=== PATIENT | female | born 1950 | race Caucasian/White ===

== ENCOUNTER → 2018-07-31 10:25 | Outpatient (CLI) | payer MEDICARE, SELFPAY ==
[2018-07-24 13:20] VITALS: BMI 37.9
--- NOTE | 2018-07-31 | IMM_PTH ---
PATIENT: CHELLE CAN LOC: [facility] U#:[id number] AGE/SX: 74/F ROOM: RE07/31/[address]: Dr. Anish Dave MD : 1950 BED: DIS: SPEC #: [id number] RECD: 08/01/18 13:35 STATUS: JAMIE REQ #: [id number] MANNY: 07/31/18 00:[address]: Anish Dave DEPT: IMMUNOHISTOCHEMISTRY RECD BY: Mica Prakash ENTERED: 08/01/18 13:36 SP TYPE: IMMUNO OTHR DR: Dr. Cruzito Lemos MD Tissues: Left breast, NOS Procedures: CALPONIN-1 (add) CK5-6 (add) CK8 (add) E-CAD (add) HER2 YOLA (add) KI-67 (add) P53 (add) NJ (add) P40 (add) ER (initial) PHYSICIAN & INSTITUTION [place] [id number] SPECIMEN INFORMATION: Tissue Source: Left breast Clinical Info: Left breast calcifications Specimen Number: [id number] #1 & 2 CPT code: 39086, 98265 x8, 86370 x3 METHODOLOGY: Deparaffinized sections of prefer/formalin-fixed tissue or PAP/DQ stained slides are incubated with monoclonal/polyclonal antibodies/oligonucleotide probes. Localization is made via biotin free immunoperoxidase method. Appropriate controls are performed and reacted as expected. Results on target cell population are indicated in the following table: RESULTS: ANTIBODY / CLONE RESULT Block 1 P53 (DO-7) negative Ki-67 (30-9) positive, low CK8 (99azitZ42) positive CK5-6 (D5 & 1684) negative Calponin-1 (YK485Q) negative P40 (BC28) negative E-Cad (ECH-6) positive MORPHOMETRIC ANALYSIS ER (clone 6F11) >95% NJ (clone 16/1E2) 56% Her-2Neu (clone CB11) 0-1+ Block 2 P40 (BC28) negative Calponin-1 (KH247C) negative The prognostic test for HER2 is performed on formalin-fixed paraffin embedded tissue. A 3+ (positive) staining pattern is defined as intense, homogeneous, complete, circumferential membranous staining in >10% of contiguous tumor cells. A similar weak (2+) staining pattern is interpreted as equivocal. MAHESH follow-up testing is recommended for all equivocal cases. Positivity/negativity for ER/NJ is reported if > or < 1% of the tumor cells are immuno- reactive, respectively. The ASCO/CAP criteria is used for scoring. Reference: Journal of Clinical Oncology, 2013; 31:0234-9939 & 2010; 16:2053-2757. Duration of fixation: 8 Hrs; Sample Adequate: Yes. These assays have not been validated on decalcified tissues. Results should be interpreted with caution given the likelihood of false negativity on decalcified specimens. These tests were developed and their performance characteristics determined by [facility]. They may not have been cleared or approved by the U.S. Food and Drug Administration. The FDA has determined that such clearance or approval is not necessary. INTERPRETATION: Left breast, stereotactic needle core biopsy: Invasive ductal carcinoma, nuclear grade 2. Positive for estrogen receptors (favorable prognostic indicator). Positive for progesterone receptors (favorable prognostic indicator). Negative for overexpression of RSN5tpt. AM:nehal 08/02/18
--- NOTE | 2018-07-31 11:15 | BRBX_PTH ---
PATIENT: CHELLE CAN LOC: [facility] U#:[id number] AGE/SX: 74/F ROOM: RE07/31/[address]: Dr. Anish Dave MD : 1950 BED: DIS: SPEC #: [id number] RECD: 07/31/18 12:01 STATUS: JAMIE ARIE #: [id number] MANNY: 07/31/18 11:[address]: Anish Dave DEPT: SURGICAL PATHOLOGY RECD BY: Isaiah Anderson ENTERED: 07/31/18 13:04 SP TYPE: BREAST BX OTHR DR: Dr. Cruzito Lemos MD Tissues: Left breast, NOS Procedures: Surgery Specimen Level IV HEADER OPERATION: Left breast stereotactic needle core biopsy PRE-OP DIAGNOSIS: Left breast calcifications TISSUE SUBMITTED: Left breast ISCHEMIC TIME: 2 minutes FIXATION TIME: 8 hours MICROSCOPIC DIAGNOSIS Left breast, stereotactic core biopsy: Invasive ductal carcinoma with the follow characteristics: Nuclear grade - 2 Maximal length - 5 mm Other findings - ductal carcinoma in situ with associated microcalcifications. AM:nehal 08/01/18 COMMENT ER/MI/Mxv8zzk studies are being performed on sections of tumor and the results from this study will be reported separately ([id number]). Case has been reviewed in consultation with Dr. Alfonso who concurs with the above diagnosis. IDC:SJ MICROSCOPIC DESCRIPTION Slides are reviewed. GROSS DESCRIPTION Received is one container labeled with the patient's name and not further designated. The specimen consists of multiple irregular and elongated fragments of yellow-rosario soft tissue that in aggregate measure 7 x 5 x 0.2 cm. The specimen is totally submitted in three cassettes. / AM:nehal 07/31/18 TC:0 CPT: 48919
--- NOTE | 2018-07-31 15:00 | PCM.OPRPT ---
Problem List (1) Microcalcification of left breast on mammogram Status: Acute Report of Operation Date of Procedure: 07/31/18 Pre-Operative Diagnosis: Microcalcifications of left breast Post-Operative Diagnosis: Same Surgery/Procedure Performed:: Stereotactic breast biopsy left breast Type of Anesthesia:: Local Description of Procedure: Patient was brought into the mammography unit. Placed in the prone position on the Kendall table. A medial to lateral view of the left breast was obtained. I targeted on the microcalcifications. I prepped the breast with Betadine. I injected 1% lidocaine plain. A skin patrick was made. I placed the needle in the prefire position and took 2 more stereotactic views. Microcalcifications were targeted appropriately. I fired the needle and took 360 degrees circumferential biopsies. I x-ray my specimen. Microcalcifications were seen in almost every biopsy. I backed the needle off 7 mm. I placed a standard Gelfoam titanium clip into the biopsy cavity. I removed the needle. I obtained a photograph showing the clip to be in good placement. Steri-Strips are applied sterile dressings were applied standard mammograms were obtained and the patient tolerated the procedure well. - Admit VTE Documentation VTE Present on Admission: No VTE Mechan Device Prophylaxis: None VTE Pharm Prophylaxis ordered?: No Reason prophylaxis not ordered:: Treatment Not Indicated
--- OUTSIDE RECORDS SUMMARY | 2018-11-01 23:32 | XMS RPT_ITS ---
:1950 Author Organization [facility] Support Name Relationship Address Phone PAMELLAFRANCES Unavailable [address] + [address] [place] [address] R Unavailable Unavailable Unavailable FRANCES CAN Unavailable [address] + [address] [place] [address] R Unavailable Unavailable Unavailable FRANCES CAN Unavailable [address] + [address] [place] [address] R Unavailable Unavailable Unavailable FRANCES CAN Unavailable [address] + [address] [place] [address] R Unavailable Unavailable Unavailable FRANCES CAN Unavailable [address] + [place] [address] FRANCES CAN Unavailable [address] + [place] [address] FRANCES CAN Unavailable [address] + [address] [place] [address] R Unavailable Unavailable Unavailable FRANCES CAN Unavailable [address] + [address] [place] [address] R Unavailable Unavailable Unavailable FRANCES CAN Unavailable [address] + [address] [place] [address] R Unavailable Unavailable Unavailable R Unavailable Unavailable Unavailable FRANCES CAN Unavailable [address] + [place] [address] FRANCES CAN Unavailable [address] + [place] [address] FRANCES CAN Unavailable [address] + [place] [address] FRANCES CAN Unavailable [address] + [place] [address] FRANCES CAN Unavailable [address] + [place] [address] FRANCES CAN Unavailable [address] + [place] [address] FRANCES CAN Unavailable [address] + [place] [address] FRANCES CAN Unavailable [address] + [place] [address] Care Team Providers Name Role Phone SHUKRI MAY, DR. DHIRAJ Rajput Attending Unavailable SHUKRI MAY, DR. DHIRAJ Rajput Primary Care Unavailable SHUKRI MAY, DR. DHIRAJ Rajput Attending Unavailable SHUKRI MAY, DR. DHIRAJ Rajput Primary Care Unavailable NOVA MCDERMOTT, DR. GALLEGOS Attending Unavailable SHUKRI MAY, DR. DHIRAJ Rajput Primary Care Unavailable SHUKRI MAY, DR. DHIRAJ Rajput Attending Unavailable SHUKRI AMY, DR. DHIRAJ Rajput Primary Care Unavailable SHUKRI MAY, DR. DHIRAJ Rajput Attending Unavailable SHUKRI MAY, DR. DHIRAJ Rajput Primary Care Unavailable Patagonia, Anish Attending Unavailable NAUMOFF, DHIRAJ Primary Care Unavailable [place]agonia, Anish Attending Unavailable NAUMOFF, DHIRAJ Primary Care Unavailable JolieAnish Consulting Unavailable Jolie, Anish Attending Unavailable [place]agonia, Anish Referring Unavailable NAUMOFF, DHIRAJ Primary Care Unavailable Jolie, Anish Attending Unavailable NAUMOFF, DHIRAJ Referring Unavailable Jolie, Anish Attending Unavailable NAUMOFF, DHIRAJ Referring Unavailable [place]agonia, Anish Attending Unavailable NAUMOFF, DHIRAJ Referring Unavailable Jolie, Anish Attending Unavailable [place]agon[place], Anish Referring Unavailable NAUMOFF, DHIRAJ Primary Care Unavailable DeHortPerico berg Consulting Unavailable PROBLEMS PROBLEMS DATE TYPE CONDITION / CODE ATTENDING STATUS SOURCE 08/04/2018 Admitting Encounter for SHUKRI MAY, Active [facility] Diagnosis screening for DR. DHIRAJ Pandya malignant neoplasm Repository of cervix / Z12.4(ICD-10) 07/31/2018 Unknown R92.8 - Other Anish Dave Active [employer] abnormal and Community inconclusive Hospital findings on Repository diagnostic imaging of breast / R92.8(ICD-10) 07/11/2018 Admitting Urinary tract NOVA MCDERMOTT, Active [facility] Diagnosis infection, site ROSY Pandya not specified / Repository N39.0(ICD-10) PROCEDURES PROCEDURES No Procedure Records FoundRESULTS RESULTS CBC-COMPLETE BLOOD CNT Collected: 09/06/2018 Status: F Source: [place] NO DIFF 9:55 AM [facility] [place] TYPE CODE TESTS RESULT OUT OF RANGE REFERENCE UNITS LAB L100.1000 4.4-11.0 K/mm3 Normal WBC 6.2 LAB L100.1200 4.2-5.4 M/mm3 Normal RBC 4.29 LAB L100.1300 12.0-15.0 g/dl Normal HGB 13.0 LAB L100.1400 37-47 % Normal HCT 41.9 LAB L100.1500 81-99 fL Normal MCV 97.7 LAB L100.1600 27.0-32.0 pg Normal MCH 30.3 LAB L100.1700 32-36 g/gl Low MCHC 31.0 LAB L100.1810 11.6-14.6 % Normal RDW CV 13.2 LAB L100.1820 35.1-43.9 fl High RDW SD 47.1 LAB L100.1900 150-450 K/mm3 Normal PLT 264 LAB L100.2000 6.2-12.0 fl Normal MPV 11.1 Performed By: #### L100.0500 #### [facility] [address] [place], [place], [address] SURGERY VISIT REPORT Observed: 08/24/2018 Status: F Source: [place] 4:55 PM [facility] [place] [facility] [address] [place], [place] [address] OFFICE VISIT Date of Service: 08/24/18 MR#: [id number] Acct: [id number] Name: CHELLE CAN Rep #: [id number] : 1950 Provider: Anish Dave MD Age/Sex: 68/F Location: [facility] Status: Signed Intake Vital Signs08/24/18 Body Mass Index (BMI) 37.9 Intake Visit Reasons: F/U MRI Results Chief Complaint: MRI breast results Restorative Care Technician Required: No Is patient in pain?: No Allergies davoro Allergy (Intermediate, Uncoded 07/24/18 13:22) dizziness Medications NK 07/24/18 [History Confirmed 08/09/18] Is last menstrual period known: No Post menopausal: Yes Patient : No PFSH Medical History Abnormal mammogram of both breasts (Acute) Breast cancer (Acute 08/2018) GERD (gastroesophageal reflux disease) (Acute) Surgical History History of right breast biopsy (Acute) Family History Mother Breast cancer Father Colon cancer Social History Smoking Status: Former smoker alcohol intake: never substance use type: does not use HPI HPI HPI: CHELLE CAN, is a 68 F who presents to the office today for follow-up from an MRI study of her breast which was completed at [facility] on 08/16/2017. This showed a seroma cavity in the lower outer quadrant of the left breast measuring approximately 18 mm x 11 mm. There was also an extensive area of linear clumping enhancement in the lower outer quadrant of the left breast measuring 6 cm x 10.7 cm x 6.1 cm this area occupied nearly the entire lower quadrant of the left breast . Patient underwent a left stereotactic breast biopsy on 07/31/2018. 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 Her ER receptors were positive at greater than 95 her UT receptors were 56 her HER-2/judah was 0-1+. Patient has noticed virtually no bruising but a small lump in the biopsy cavity. Presents today to discuss surgical options and follow-up Exam Const General: well developed, no acute distress, well hydrated Orientation: oriented to person, oriented to place, oriented to time [facility] Head: normocephalic, atraumatic Ears: external ears normal Mouth: moist mucous membranes Eyes Sclera: sclerae normal Pupils: normal by confrontation Neck Neck: no lymphadenopathy noted Neck mass: No Thyroid: symmetrical, thyroid normal Chest Chest palpation AND inspection: normal inspection of the chest Breast inspection: normal inspection of the breasts Breast Palpation: No change in skin, Yes normal palpation of the breasts, Yes normal palpation of the axillae Other: Palpation of the right breast reveals nml. Palpation of the left breast reveals nml slightly more dense in the lower outer quadrant. Axillary exam demonstrates no suspicious masses in either the left or right axilla. Resp Effort AND Inspection: normal respiratory effort Auscultation: clear to auscultation bilaterally Percussion: percussion normal Cardio Rate: regular rate Rhythm: regular rhythm GI Palpation: soft, nontender, no masses, no hepatosplenomegaly Rectal Exam: other Other: Rectal exam deferred. Extrem General: no clubbing, cyanosis or edema, normal to inspection Assessment AND Plan Problems 1. 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 Options are the following: lumpectomy followed by radiation therapy vs. mastectomy vs. mastectomy followed by immediate reconstruction. I have described the procedures to the patient. I have described the advantages and disadvantages of the options, but I have told the patient that among the options, the survival rate for breast cancer is the same. I have told the patient that with all the surgeries that a sentinel lymph node biopsy is required. I have described the procedure of sentinel lymph node biopsy to the patient. I have told the patient that if the biopsy is positive for metastatic disease, then a full axillary lymph node dissection is required. I have told the patient that adjuvant chemotherapy will be required should the lymph nodes reveal metastatic disease. Also, a full lymph node dissection will increase the risk for lymphedema, especially if there are 4 or more lymph nodes positive for metastatic disease and radiation to the axilla is also required. I have told the patient the risks of surgery, including but not limited to: infection, bleeding, scar tissue, seroma and persistent seroma, lymph leak, injury to any blood vessels, injury to any nerves (particularly the long thoracic, the thoracodorsal, and the second intercostal brachial and the resultant sequelae), lymphedema, cosmetic deformity, dysesthesias, wound infections, further surgery (especially if margins are not clear), complications of anesthesia, etc. the patient understands. The patient will think about the options and discuss it further with the family. The patient will contact me in the next few days when she decides what the patient wishes to do. I have answered all the patient s questions at this point to her satisfaction and she has no further questions. Patient has opted to undergo a left-sided mastectomy with sentinel lymph node biopsy. Given the fact that her MRI shows that there is no obvious lymph node involvement I believe that this is a safe approach as opposed to doing MRI guided biopsies of numerous areas within the left breast. I think we will be able to get the skin closure without any difficulty whatsoever and make an accurate sentinel lymph node biopsy and diagnosis. I did discuss with her the possibility of biopsying this and obtaining chemotherapy ahead of time to possibly have breast conserving therapy she does not wish to do this. 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, estrogen receptor positive C50.512; Z17.0 Breast location: lower outer quadrant of breast Estrogen receptor status: positive Patient sex: female 08/24/18 1655 <Electronically signed by Anish Dave MD> Date Anish Dave MD Cosigner Signature: Date (if applicable) CC: Dhiraj Lemos MD BREAST BILATERAL W/O Observed: 08/16/2018 Status: F Source: [place] AND W 12:58 PM [facility] [place] [facility] Imaging Services [address] [place] [id number] Breast Bilateral W/O and W MR#: [id number] Acct: [id number] Name: CHELLE CAN Scar Rep #: [id number] : 1950 F 67 From: Danial Cates MD PCP: Dhiraj Lemos MD Status: REG CLI Study: Breast Bilateral W/O and W Date of Exam: 08/16/18 Exam# [id number] Ordering Dr: Anish Dave MD STUDY: BILATERAL BREAST MR WITHOUT AND WITH CONTRAST REASON FOR EXAM: Female, 68 years old. Recent positive left breast biopsy for invasive duct carcinoma. Evaluation of both breasts preoperative blue. TECHNIQUE: Multi-sequence multi-echo imaging of both breasts was performed with a dedicated breast coil. T1-weighted and T2- weighted images were performed before the administration of contrast. T1- weighted images were also performed after the administration of 10 mL of Gadavist contrast intravenously without complications. COMPARISON: Prior breast MRI dated December 13, 2007 and mammograms dated July 10, 2010. FINDINGS: RIGHT BREAST: The breast tissue is fatty with no background enhancement. There are no abnormal enhancing masses or areas of non-mass enhancement in the right breast. LEFT BREAST: The breast tissue is fatty with no background enhancement. There is a seroma cavity in the lower outer quadrant of the left breast measuring approximately 18 mm x 11 mm. There is an extensive area of linear clumped enhancement in the lower outer quadrant of the left breast measuring 6.8 cm x 10.7 cm x 6.1 cm. This area occupies nearly the entire lower outer quadrant of the left breast. There are no enlarged or abnormal lymph nodes. There is no abnormality in the visualized regions of the chest or liver. MRI/Breast Bilateral W/O and W IMPRESSION: No abnormality in the right breast. Extensive area of linear clumped enhancement in the lower outer quadrant of the left breast as described. CATEGORY: [facility] Category 6: Known Biopsy-Proven Malignancy - Appropriate Action Should Be Taken. A letter regarding these results will be sent to the patient by the facility within 30 days. Electronically Signed: Danial Cates MD at 17:58 EST , Service support , CC: Dhiraj Lemos MD; Anish Dave MD Furniture Arranger: Signed SURGERY VISIT REPORT Observed: 08/09/2018 Status: F Source: [place] 9:23 AM [facility] [place] [facility] [address] [place] [address]. [address] [place] [address] OFFICE VISIT Date of Service: 08/09/18 MR#: [id number] Acct: [id number] Name: CHELLE CAN Rep #: [id number] : 1950 Provider: Anish Dave MD Age/Sex: 67/F [place] [facility] [place] Status: Signed Intake Vital Signs08/09/18 Body Mass Index (BMI) 37.9 Intake Visit Reasons: F/U R BRST BX 07/31/18 DP Restorative Care Technician Required: No Is patient in pain?: No Allergies davoro Allergy (Intermediate, Uncoded 07/24/18 13:22) dizziness Medications NK 07/24/18 [History Confirmed 08/09/18] PFSH Medical History Abnormal mammogram of both breasts (Acute) GERD (gastroesophageal reflux disease) (Acute) Surgical History History of right breast biopsy (Acute) Family History Mother Breast cancer Father Colon cancer Social History Smoking Status: Former smoker alcohol intake: never substance use type: does not use HPI HPI HPI: CHELLE CAN, is a 67 F who presents to the office today for postoperative care from a left stereotactic breast biopsy. Patient underwent a left stereotactic breast biopsy on 07/31/2018. 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 Her ER receptors were positive at greater than 95 her UT receptors were 56 her HER-2/judah was 0-1+. Patient has noticed virtually no bruising but a small lump in the biopsy cavity. ROS General General: No weight change, appetite, fatigue, colon cancer, breast cancer or weakness HEENT HEENT: No difficulty swallowing, eye injury, eye surgery, swollen glands or hoarseness Endo Endocrine: No thyroid disease, diabetes mellitus, thyroid cancer, Hair loss, heat intolerance or cold intolerance Skin Skin: No rash or changing moles Breast Breast: Yes abnormal mammogram and abnormal US; no left breast lump, right breast lump, nipple discharge, breast pain or breast enlargement Musc Musculoskeletal: No back problems, arthritis, rheumatoid arthritis, gout or joint pain Cardio Cardiovascular: No murmur, pacemaker, heart disease, atrial fibrillation, high blood pressure, heart attack, heart stent, palpitations, shortness of breat with exertion or chest pain Psych Psychiatric: Yes anxiety; no depression or hearing voices Resp Respiratory: No shortness of breath, No sleep apnea, No cough, No COPD, No asthma, No emphysema, No wheezing Gastro Gastrointestinal: No abdominal pain, No nausea or vomiting, No diarrhea, No constipation, No blood in stool, Yes acid reflux, No hemorrhoids, Yes ulcers, No gallbladder problem, No black,tarry stools Fabircio Hematologic: No blood thinners, No blood disorders, No bleeding, No anemia, No blood clots Neuro Neurologic: No weakness Exam Chest Breast Palpation: No nipple discharge Other: Biopsy site is clean there is a small hematoma located with in the area of the upper outer quadrant of the left breast. Cardio Heart Sounds: no murmurs Assessment AND Plan Problems 1. Malignant neoplasm of upper-outer quadrant of left breast in female, estrogen receptor positive C50.412; Z17.0 Plan At this point the patient is leaning towards a mastectomy. I believe that it is important for us to obtain an MRI of her breasts given the diffuseness of the microcalcifications not only with in the left breast but also within the right breast. We discussed at length what is involved with a left-sided mastectomy which would include using both nuclear dye as well as blue dye to use to identify the sentinel lymph node. I have given the patient options for initial surgical treatment. Options are the following: lumpectomy followed by radiation therapy vs. mastectomy vs. mastectomy followed by immediate reconstruction. I have described the procedures to the patient. I have described the advantages and disadvantages of the options, but I have told the patient that among the options, the survival rate for breast cancer is the same. I have told the patient that with all the surgeries that a sentinel lymph node biopsy is required. I have described the procedure of sentinel lymph node biopsy to the patient. I have told the patient that if the biopsy is positive for metastatic disease, then a full axillary lymph node dissection is required. I have told the patient that adjuvant chemotherapy will be required should the lymph nodes reveal metastatic disease. Also, a full lymph node dissection will increase the risk for lymphedema, especially if there are 4 or more lymph nodes positive for metastatic disease and radiation to the axilla is also required. I have told the patient the risks of surgery, including but not limited to: infection, bleeding, scar tissue, seroma and persistent seroma, lymph leak, injury to any blood vessels, injury to any nerves (particularly the long thoracic, the thoracodorsal, and the second intercostal brachial and the resultant sequelae), lymphedema, cosmetic deformity, dysesthesias, wound infections, further surgery (especially if margins are not clear), complications of anesthesia, etc. the patient understands. The patient will think about the options and discuss it further with the family. The patient will contact me in the next few days when she decides what the patient wishes to do. I have answered all the patient s questions at this point to her satisfaction and she has no further questions. Coding Level of Care Code Off vis,est,level 3 Diagnoses Malignant neoplasm of upper-outer quadrant of left breast in female, estrogen receptor positive C50.412; Z17.0 Breast location: upper outer quadrant of breast Estrogen receptor status: positive Patient sex: female Time Spent (min) 08/09/18 0923 <Electronically signed by Anish Dave MD> Date Anish Dave MD Cosigner Signature: Date (if applicable) CC: Dhiraj Lemos MD AD CLERK CYTOLOGY REPORT Observed: 08/04/2018 Status: F Source: [facility] 3:22 PM [facility] REPOSITORY . Pathology Reports Accession: Collected Date/Time: Received Date/Time: Pathologist: [id number] 08/04/2018 15:22 EST 08/04/2018 18:00 EST Interpreter Deaf Cytology Report SPECIMEN: Specimen Description: Liquid Prep w/ HPV Specimen: Cervical/Endocervical Screening or Diagnostic: Screening RELEVANT HISTORY: LMP: 1993 Post Menopausal: Yes [id number] SPECIMEN ADEQUACY: SATISFACTORY FOR EVALUATION ENDOCERVICAL/TRANSFORMATIONAL ZONE COMPONENT PRESENT INTERPRETATION/RESULTS: NEGATIVE FOR INTRAEPITHELIAL LESION OR MALIGNANCY. ATROPHIC CHANGE PRESENT. Electronically Signed by Pathology report verified by [facility] Screened by: ROB Electronically signed by Keerthi GAY (ASCP) Sign-Out Date: 08/11/2018 13:36 Performing Lab: [facility], [address] [place] [address] Disclaimer The Pap test is a screening test for cervical cancer. As evidenced by published data, it is subject to both inherent false negative and false positive results. Your patient's results should be interpreted in context with pertinent clinical history including gynecological examination. Performed By: #### GYCR #### [place] [address] HPV Collected: 08/04/2018 Status: F Source: [facility] 3:22 PM FOUNDATION REPOSITORY Order Comment: Order placed by AP_HPV_ORDER rule from [id number] TYPE CODE TESTS RESULT OUT OF REFERENCE UNITS RANGE LAB BFHPV(LOINC ) HPV Source Cervix LAB HPVINT(LOIN See Interp HPVN C) HPV Interp Result Comment: High Risk HPV Typing: NEGATIVE HPV types 16, 18, 31, 33, 35, 39, 45, 51, 52, 56, 58, 59, 66 and 68 DNA were undetectable or below the pre-set threshold. The collin High-Risk HPV DNA Test is not intended for use as a screening device for Pap normal women under age 30 and is not intended to substitute for regular Pap screening. The collin High-Risk HPV DNA Test is designed to augment existing methods for the detection of cervical disease and should be used in conjunction with clinical information derived from other diagnostic and screening tests, physical examinations and full medical history in accordance with appropriate patient management procedures. NOTE: A negative result does not preclude the presence of HPV infection because results depend on adequate specimen collection, absence of inhibitors and sufficient DNA to be detected. See Interp HPVN Performed By: #### HPV #### [place] [address] OPERATIVE REPORT Observed: 07/31/2018 Status: F Source: [place] 3:06 PM [facility] [place] [facility] Medical Records Department [address] [place] [address] Operative Report 07/31/18 1500 MR#: [id number] Acct: [id number] Name: CHELLE CAN Rep #: [id number] : 1950 67 From: Ansih Dave MD PCP: Dhiraj Lemos MD Status: REG CLI Y Location: [facility] Problem List (1) Microcalcification of left breast on mammogram Status: Acute Report of Operation Date of Procedure: 07/31/18 Pre-Operative Diagnosis: Microcalcifications of left breast Post-Operative Diagnosis: Same Surgery/Procedure Performed:: Stereotactic breast biopsy left breast Type of Anesthesia:: Local Description of Procedure: Patient was brought into the mammography unit. Placed in the prone position on the [place] table. A medial to lateral view of the left breast was obtained. I targeted on the microcalcifications. I prepped the breast with Betadine. I injected 1% lidocaine plain. A skin patrick was made. I placed the needle in the prefire position and took 2 more stereotactic views. Microcalcifications were targeted appropriately. I fired the needle and took 360 degrees circumferential biopsies. I x-ray my specimen. Microcalcifications were seen in almost every biopsy. I backed the needle off 7 mm. I placed a standard Gelfoam titanium clip into the biopsy cavity. I removed the needle. I obtained a photograph showing the clip to be in good placement. Steri-Strips are applied sterile dressings were applied standard mammograms were obtained and the patient tolerated the procedure well. - Admit VTE Documentation VTE Present on Admission: No VTE Mechan Device Prophylaxis: None VTE Pharm Prophylaxis ordered?: No Reason prophylaxis not ordered:: Treatment Not Indicated 07/31/18 1506 <Electronically signed by Anish Dave MD> Date Anish Dave MD CC: Dhiraj Lemos MD; Anish Dave MD Signed BREAST BIOPSY Observed: 07/31/2018 Status: F Source: [place] (CHOOSE SITE) 11:15 AM [facility] [place] Patient: CHELLE CAN : 1950 (67/F) Acct Num: [id number] Phys: Jolie CALLAWAY,Anish Unit Num: [id number] Loc: [facility] Specimen: [id number] Received: 07/31/18 - 1201 Spec Type: BREAST BX TISSUES 1 TISSUES: Left breast, NOS COMMENT ER/UT/[id number] studies are being performed on sections of tumor and the results from this study will be reported separately ([id number]). Case has been reviewed in consultation with Dr. Alfonso who concurs with the above diagnosis. IDC:SJ GROSS DESCRIPTION Received is one container labeled with the patient's name and not further designated. The specimen consists of multiple irregular and elongated fragments of yellow-rosario soft tissue that in aggregate measure 7 x 5 x 0.2 cm. The specimen is totally submitted in three cassettes. / AM:nehal 07/31/18 TC:0 CPT: 74659 HEADER OPERATION: Left breast stereotactic needle core biopsy PRE-OP DIAGNOSIS: Left breast calcifications TISSUE SUBMITTED: Left breast ISCHEMIC TIME: 2 minutes FIXATION TIME: 8 hours MICROSCOPIC DESCRIPTION Slides are reviewed. MICROSCOPIC DIAGNOSIS Left breast, stereotactic core biopsy: Invasive ductal carcinoma with the follow characteristics: Nuclear grade - 2 Maximal length - 5 mm Other findings - ductal carcinoma in situ with associated microcalcifications. AM:nehal 08/01/18 Signed Ashutosh Cornejo DO 08/02/18 <signature on file> Performed By: #### PBRBX #### [facility] [place], [address] IMMUNOHISTOCHEMISTRY Observed: 07/31/2018 Status: F Source: [place] 12:00 AM [facility] [place] Patient: CHELLE CAN : 1950 (67/F) Acct Num: [id number] Phys: Anish Dave MD Unit Num: [id number] Loc: B[facility]AD Specimen: [id number] Received: 08/01/181334 Spec Type: IMMUNO TISSUES 1 TISSUES: Left breast, NOS SPECIMEN INFORMATION: Tissue Source: Left breast Clinical Info: Left breast calcifications Specimen Number: [id number] #1 AND 2 CPT code: 90995, 14400 x8, 16600 x3 METHODOLOGY: Deparaffinized sections of prefer/formalin-fixed tissue or PAP/DQ stained slides are incubated with monoclonal/polyclonal antibodies/oligonucleotide probes. Localization is made via biotin free immunoperoxidase method. Appropriate controls are performed and reacted as expected. Results on target cell population are indicated in the following table: RESULTS: ANTIBODY / CLONE RESULT Block 1 P53 (DO-7) negative Ki-67 (30-9) positive, low CK8 (35vqkqC99) positive CK5-6 (D5 AND 1684) negative Calponin-1 (QP384Y) negative P40 (BC28) negative E-Cad (ECH-6) positive MORPHOMETRIC ANALYSIS ER (clone 6F11) >95% UT (clone 16/1E2) 56% Her-2Neu (clone CB11) 0-1+ Block 2 P40 (BC28) negative Calponin-1 (IB818T) negative The prognostic test for HER2 is performed on formalin-fixed paraffin embedded tissue. A 3+ (positive) staining pattern is defined as intense, homogeneous, complete, circumferential membranous staining in >10% of contiguous tumor cells. A similar weak (2+) staining pattern is interpreted as equivocal. MAHESH follow- up testing is recommended for all equivocal cases. Positivity/negativity for ER/ UT is reported if > or < 1% of the tumor cells are immuno- reactive, respectively. The ASCO/CAP criteria is used for scoring. Reference: Journal of Clinical Oncology, 2013; 31:9015-7628 AND 2010; 16:2784- 2795. Duration of fixation : 8 Hrs; Sample Adequate: Yes. These assays have not been validated on decalcified tissues. Results should be interpreted with caution given the likelihood of false negativity on decalcified specimens. These tests were developed and their performance characteristics determined by [facility]. They may not have been cleared or approved by the U.S. Food and Drug Administration. The FDA has determined that such clearance or approval is not necessary. INTERPRETATION: Left breast, stereotactic needle core biopsy: Invasive ductal carcinoma, nuclear grade 2. Positive for estrogen receptors (favorable prognostic indicator). Positive for progesterone receptors (favorable prognostic indicator). Negative for overexpression of ZDH9zsd. AM:nehal 08/02/18 PHYSICIAN AND INSTITUTION [address] [address] Signed Ashutosh Cornejo DO 08/02/18 <signature on file> Performed By: #### PIMM #### [facility] [address] [place], [address] SURGERY VISIT REPORT Observed: 07/25/2018 Status: F Source: [place] 7:29 AM [facility] [place] [facility] [address] [place] [address] OFFICE VISIT Date of Service: 07/24/18 MR#: [id number] Acct: [id number] Name: CHELLE CAN Rep #: [id number] : 1950 Provider: Anish Dave MD Age/Sex: 67/F Location: [facility] Status: Signed Intake Vital Signs07/24/18 Height 5 ft 3 in 07/24/18 Weight: 214 lb Intake Visit Reasons: Abnormal Diagnostic Imaging L Breast Restorative Care Technician Required: No Is patient in pain?: No Allergies davoro Allergy (Intermediate, Uncoded 07/24/18 13:22) dizziness Medications NK 07/24/18 [History Confirmed 07/24/18] PFSH Medical History Abnormal mammogram of both breasts (Acute) GERD (gastroesophageal reflux disease) (Acute) Surgical History History of right breast biopsy (Acute) Family History Mother Breast cancer Father Colon cancer Social History Smoking Status: Former smoker alcohol intake: never substance use type: does not use HPI HPI HPI: CHELLE CAN, is a 67 F who presents to the office today for evaluation of an abnormal mammogram. Patient had her mammograms completed at [facility] on 07/17/2018 she was noted to have a 9 cm pleomorphic calcifications in the left breast at the 5 o'clock position in the posterior depth. They read this is a BI-RADS Category 4/5. It appears highly suggestive of malignancy and a stereotactic breast biopsy was recommended. Patient has had a excisional right breast biopsy done for microcalcifications in the past. This turned out to be benign. ROS General General: No weight change, appetite, fatigue, colon cancer, breast cancer or weakness HEENT HEENT: No difficulty swallowing, eye injury, eye surgery, swollen glands or hoarseness Endo Endocrine: No thyroid disease, diabetes mellitus, thyroid cancer, Hair loss, heat intolerance or cold intolerance Skin Skin: No rash or changing moles Breast Breast: Yes abnormal mammogram and abnormal US; no left breast lump, right breast lump, nipple discharge, breast pain or breast enlargement Musc Musculoskeletal: No back problems, arthritis, rheumatoid arthritis, gout or joint pain Cardio Cardiovascular: No murmur, pacemaker, heart disease, atrial fibrillation, high blood pressure, heart attack, heart stent, palpitations, shortness of breat with exertion or chest pain Psych Psychiatric: Yes anxiety; no depression or hearing voices Resp Respiratory: No shortness of breath, No sleep apnea, No cough, No COPD, No asthma, No emphysema, No wheezing Gastro Gastrointestinal: No abdominal pain, No nausea or vomiting, No diarrhea, No constipation, No blood in stool, Yes acid reflux, No hemorrhoids, Yes ulcers, No gallbladder problem, No black,tarry stools Fabricio Hematologic: No blood thinners, No blood disorders, No bleeding, No anemia, No blood clots Neuro Neurologic: No system reviewed and no additional complaints, except as docu, No as per HPI, No abnormal walking, No abnormal hearing, No abnormal movements, No abnormal speech, No behavioral changes, No burning sensations, No confusion, No seizure-like activity, No unsteadiness, No dizziness, No localized weakness, No frequent falls, No headache(s), No lack of coordination, No loss of vision, No memory loss, Yes numbness, No other visual disturbances, No radiating pain, No restless legs, No sensory deficit, No fainting, Yes tingling, No tremor(s), No weakness, No other Exam [facility] Head: normal to inspection, normocephalic, atraumatic Mouth: moist mucous membranes, oropharynx normal Eyes General: appearance normal, both eyes and all related structures Sclera: sclerae normal Neck Neck: no lymphadenopathy noted, trachea midline Neck mass: No Thyroid: thyroid normal Lymphatic: no lymphadenopathy noted Chest Breast inspection: normal inspection of the breasts Breast Palpation: No nipple discharge Resp Other: Respiratory Exam: Deferred Cardio Heart Sounds: no murmurs Other: Cardiac Exam: Deferred GI Other: GI Exam: Deferred Other: Rectal Exam: Deferred Extrem Other: Extremity Exam: Deferred Assessment AND Plan Problems 1. Microcalcification of left breast on mammogram R92.0 Plan I have discussed above with the patient. I have recommended stereotactic guided needle core breast biopsy with vacuum assistance. I have described the procedure to the patient. A marker clip will be placed to identify the location. Patient has been counseled to the risks/benefits of the procedure. I have explained the risks of the surgery, including but not limited to: infection, bleeding, injury to any blood vessels/nerves, scar tissue, missing the lesion, further surgery, etc. - the patient understands and agrees to proceed. I have answered all of the patient's questions to her satisfaction and she has no further questions. Coding Level of Care Code Off vis,new,level 3 Diagnoses Microcalcification of left breast on mammogram R92.0 07/25/18 0729 <Electronically signed by Anish Dave MD> Date Anish Dave MD Cosigner Signature: Date (if applicable) CC: Dhiraj Lemos MD US BREAST RIGHT Observed: 07/17/2018 Status: F Source: [facility] 2:30 PM FOUNDATION REPOSITORY ORIGINAL FROM: [place] [address] PROCEDURE FOR: CHELLE CAN [address] [place] [address] Home: PID#: [id number] Exam#: [id number] : 1950 Age: 67 TO: DHIRAJ LEMOS MD [address] [place] [address] #[id number] LIMITED ULTRASOUND OF RIGHT BREAST: 07/17/2018 CLINICAL: MAMMOGRAPHIC DENSITY RIGHT BREAST. No prior exams were available for comparison. Color flow and real-time ultrasound of the right breast 9 o'clock region were performed. Reed scale images of the real-time examination were reviewed. There are no findings to correlate with the mammographic findings. The mammographic findings are consistent with a tiny intramammary lymph node. IMPRESSION: INCOMPLETE: NEEDS ADDITIONAL IMAGING EVALUATION Negative sonogram. A left diagnostic mammogram will be performed and reported separately. KAUSHIK URBAN MD ab/:07/17/2018 14:57:55 Metaphysician(s): KEVIN PINEDA RDMS, [facility] letter sent: Normal-Needs W/U BI-RADS 0 Ultrasound BI-RADS: 0 Indeterminate MA MAMMOGRAM Observed: 07/17/2018 Status: F Source: [facility] DIAGNOSTIC LEFT 2:26 PM FOUNDATION REPOSITORY ORIGINAL FROM: [place] [address] PROCEDURE FOR: CHELLE CAN [address] [place] [address] Home: PID#: [id number] Exam#: [id number] : 1950 Age: 67 TO: DHIRAJ LEMOS MD [address] [place] [address] #[id number] UNILATERAL LEFT DIAGNOSTIC MAMMOGRAM WITH MEDIOLATERAL OBLIQUE CRANIOCAUDAL SPOT COMPRESSION AND MAGNIFICATION: 07/17/2018 CLINICAL: CALCIFICATIONS LEFT BREAST. Comparison is made to exams dated: 07/10/2018 mammogram and 07/21/2016 mammogram - [facility] The tissue of left breast is predominately fatty. There is a 9 cm pleomorphic calcifications in the left breast at 5 o'clock posterior depth. This is seen in additional views. No other significant masses or calcifications are seen in the breast. IMPRESSION: HIGHLY SUGGESTIVE OF MALIGNANCY The 9 cm pleomorphic calcifications in the left breast appears highly suggestive of malignancy. A stereotactic biopsy is recommended. KAUSHIK URBAN MD ab/:07/17/2018 15:16:04 Metaphysician(s): RT JOSSY (R)(M), [facility] letter sent: Biopsy Recommended BI-RADS 4&5 Mammogram BI-RADS: 5 Highly suggestive of malignancy Observed: 07/11/2018 Status: F Source: [facility] CUR 9:59 AM [facility] REPOSITORY . MICRO - Microbiology PROCEDURE: Urine Culture [*1] SOURCE: Urine, Clean Catch BODY SITE: COLLECTED DATE/TIME: 07/11/2018 09:59 EST RECEIVED DATE/TIME: 07/11/2018 21:21 EST START DATE/TIME: 07/11/2018 21:21 EST FREE TEXT SOURCE: FINAL REPORTS Final Report [] Verified Date/Time/Personnel: 07/13/2018 07:53 EST 50,000 organisms per mL Mixed without predominant isolate(s). Sensitivity Testing not indicated. Probably contamination. Repeat culture suggested. PRELIMINARY REPORTS Preliminary Report [] Verified Date/Time/Personnel: 07/12/2018 05:43 EST No growth to date Performing Locations *1: This test was performed at: [address], [address] [place] [address] Performed By: #### CUR #### [address] MAMMOGRAM SCREENING Observed: 07/10/2018 Status: F Source: [facility] BILATERAL W/JAZMYN 11:00 AM [facility] REPOSITORY ORIGINAL FROM: [place] [address] PROCEDURE FOR: CHELLE CAN [address] [place] [address] Home: PID#: [id number] Exam#: [id number] : 1950 Age: 67 TO: DHIRAJ LEMOS MD [address] [place] [address] #[id number] BILATERAL DIGITAL SCREENING MAMMOGRAM 3D/2D WITH CAD WITH MEDIOLATERAL OBLIQUE CRANIOCAUDAL: 07/10/2018 Comparison is made to exams dated: 07/21/2016 mammogram and 11/14/2014 mammogram - [facility] The tissue of both breasts is predominately fatty. Current study was also evaluated with a Computer Aided Detection (CAD) system. There is a new 3 mm round mass with a circumscribed margin in the right breast at 9 o'clock middle depth. This is seen in additional views. There is a new 6 cm asymmetry with punctate calcifications in the left breast central to the nipple posterior depth. This is seen in additional views. No other significant masses or calcifications are seen in either breast. IMPRESSION: INCOMPLETE: NEEDS ADDITIONAL IMAGING EVALUATION The new 3 mm round mass in the right breast at 9 o'clock middle depth appears indeterminate. An ultrasound examination is recommended for the mass. We will contact the patient to arrange for the ultrasound exam. The new 6 cm asymmetry in the left breast central to the nipple posterior depth appears indeterminate. Additional views are needed for the calcifications including magnification compression spot views i n the MLO and CC projections and a lateral magnification view. NAKITA BUSTAMANTE MD cm/:07/10/2018 17:13:53 Metaphysician(s): RT JOSSY (R)(M), [facility] letter sent: Abnormal-Needs W/U BI-RADS 0 Mammogram BI-RADS: 0 Indeterminate HFP Collected: 06/29/2018 Status: F Source: [facility] 12:08 PM FOUNDATION REPOSITORY TYPE CODE TESTS RESULT OUT OF REFERENCE UNITS RANGE LAB PROT(LOINC) 6.4-8.2 G/dL Total Protein 7.3 LAB ALB(LOINC) 3.4-4.8 G/dL Albumin Level 4.0 LAB GLB(LOINC) G/dL Globulin 3.3 LAB AG(LOINC) 1.1-2.5 ratio A/G Ratio 1.2 LAB BILT(LOINC) 0.2-1.0 mg/dL Bili Total 0.3 LAB BILAD(LOINC 0.0-0.2 mg/dL ) Bili Direct 0.1 LAB BILI(LOINC) mg/dL Bili Indirect 0.2 Result Comment: Calculated by Rule LAB AP(LOINC) 40-135 U/L Alk Phos 90 LAB AST(LOINC) 10-40 U/L AST/SGOT 23 LAB ALT(LOINC) 10-35 U/L High ALT/SGPT 37 Performed By: #### HFP, HCV1 #### [facility] [address] [place], [place] [id number] HCV Collected: 06/29/2018 Status: F Source: [facility] 12:08 PM FOUNDATION REPOSITORY TYPE CODE TESTS RESULT OUT OF REFERENCE UNITS RANGE LAB HCV(LOINC) Negative Negative Hep C Ab LAB HCV1(LOINC ) No serological Hep C evidence of Ab Int Hepatitis C infection, although levels of anti-HCV may be undetectable in early infection. Performed By: #### HFP, HCV1 #### [place] [address] ALLERGIES ALLERGIES DATE TYPE / CODE NAME / CODE REACTION SEVERITY SOURCE 09/05/2018 Drug naproxen/F00 Other Unknown [employer] [facility] Allergy/409973742(S 9542642(RXNO [facility] NOMED CT) ) Hospital Repository 07/24/2018 Miscellaneous davoro dizziness [place] Allergy/509733186(S [facility] NOM[facility]) Hospital Repository ENCOUNTERS ENCOUNTERS ADMIT/DISCHARGE ACCOUNT NUMBER ADMITTING ENCOUNTER LOCATION SOURCE CLASS 09/07/2018 [id number] Ambulatory [facility] ding:SDC Repository 08/24/2018/08/24/19 [id number] Ambulatory BMSBuilding: [employer] 19 BMS.[facility] Repository 08/16/2018 [id number] Ambulatory [facility] ding:MRI Repository 08/09/2018/08/09/20 [id number] Ambulatory BMSBuilding: [place] 18 BMS.[facility] Repository 08/04/2018/08/08/20 [id number] Ambulatory BBuilding:[facility] [place] 18 [facility] Repository 07/31/2018 [id number] Ambulatory BMSBuilding: [employer] BMS.CF.[facility] Repository 07/31/2018 [id number] Ambulatory [facility] ding:[facility] Repository 07/24/2018/07/24/20 [id number] Ambulatory BMSBuilding: [place] 18 BMS.[facility] Repository 07/17/2018/07/17/20 [id number] Ambulatory BBuilding:RA [place] 18 [facility] Repository 07/11/2018/07/15/20 [id number] Ambulatory BBuilding:DR [place] 18 OP [facility] Repository 07/10/2018/07/10/20 [id number] Ambulatory BBuilding:RA [place] 18 D [facility] Repository 06/29/2018/06/29/20 [id number] Ambulatory BBuilding:YOLI [address] 18 AB [facility] Repository PAYERS PAYERS ENCOUNTER GUARANTOR PAYER SUBSCRIBER SOURCE 09/07/2018 CHELLE DAVISON Primary CHELLE CANDOB: [place] [address] Insurance:[place] [id number] [place] [address]Cks: OPolicy Number: Repository [id number] (HP) e Date:[id number] [address]PZ: 09/07/2018 Secondary NOT GIVENUNK [place] Insurance:SELF PAY [facility] Number: Effective Repository Date:2018-08-24 08/24/2018 CHELLE CAN141 Primary CHELLE CANDOB: [employer] [address] Insurance:[place] [id number] [place] [address]Bdz: OPolicy Number: Repository [id number] (HP) e Date:3381-25-85TQ [address] [place] [address]CU: 08/24/2018 Secondary NOT GIVENUNK [place] Insurance:SELF PAY [facility] Number: Effective Repository Date:2018-08-22 08/16/2018 CHELLE CAN141 Primary CHELLE CANDOB: [place] [address] Insurance:[place] [id number] [place] [address]Wxj: OPolicy Number: Repository [id number] (HP) e Date:9866-00-75IE [address] [place] [address]CA: 08/16/2018 Secondary NOT GIVENUNK [place] Insurance:SELF PAY [facility] Number: Effective Repository Date:2018-08-02 08/09/2018 CHELLE DAVISON Primary CHELLE CANDOB: [place] [address] Insurance:[place] [id number] [address]Ffd: HMOPolicy Number: Repository [id number] (HP) e Date:4523-70-61JA [facility] [address] [place] [address]PP: 08/09/2018 Secondary NOT GIVENUNK [place] Insurance:SELF PAY [facility] Number: Effective Repository Date:2018-08-07 08/04/2018 CHELLE FLYNNB: Primary CHELLE CANDOB: [facility] [id number] [address] Insurance:PRIME TIME [id number] ([facility] [address] [place] [address], Repository [address]Pbd: (330) Number: [place] [id number]: [phone] [id number] (HP)Tel: 999) e Date:2018-08-04 - () (WP) [id number] 000-0000 (WP) Name:[facility] [address] [place] [address]MX: 07/31/2018 CHELLE DAVISON Primary CHELLE CANDOB: [place] [address] Insurance:[place] [id number] [address]Faw: OPolicy Number: Repository [id number] (HP) e Date:2430-47-23LX [facility] [address] [place] [address]QJ: 07/31/2018 Secondary NOT GIVENUNK [place] Insurance:SELF PAY [facility] Number: Effective Repository Date:2018-07-31 07/31/2018 CHELLE DAVISON Primary CHELLE FLYNNB: [employer] [address] Insurance:[place] [id number] [address]Qkx: [facility] Number: Repository [id number] (HP) e Date:5882-03-94[address], [place] [address]YK: 07/31/2018 Secondary NOT GIVENUNK [place] Insurance:SELF PAY [facility] Number: Effective Repository Date:2018-07-24 07/24/2018 CHELLE CAN141 W Primary CHELLE CANDOB: [place] [address] Insurance:[place] [id number] [address]Xyu: [facility] Number: Repository [id number] (HP) e Date:9661-65-83YB [address] [address]YL: 07/24/2018 Secondary NOT GIVENUNK [employer] Insurance:SELF PAY [facility] Number: Effective Repository Date:2018-07-19 07/17/2018 CHELLE FLYNNB: Primary CHELLE FLYNNB: [facility] [id number] [address] Insurance:PRIME TIME [id number] ([place])[address], Repository [address]Loa: (330) Number: [place] [id number]: [phone] [id number] (HP)Tel: (999) e Date:2018-07-12 - (HP) (WP) [id number] 000-0000 (WP) Name:[facility] [address], [place] [address]ID: 07/11/2018 CHELLE FLYNNB: Primary CHELLE FLYNNB: [employer] [facility] [id number] [address] Insurance:PRIME TIME [id number] ([place])[address], Repository [id number] Number: [place] [address]Urt: : [id number] (HP)Tel: (999) e Date:2018-07-11 - (HP) (WP) [id number] 000-0000 (WP) Name:[place] [address]NG: 07/10/2018 CHELLE CANB: Primary CHELLE CANDOB: [facility] [employer] 8678-96-86ME [address]OX Insurance:PRIME TIME [id number])Policy [address] [place] [address], Repository [address]Ttq: (330) Number: [place] [id number]: [phone] [id number] (HP)Tel: (999) e Date:2018-07-03 - (HP) (WP) [id number] 000-0000 (WP) Name:[facility] [place] [place] [address]IR: 06/29/2018 CHELLE Abbott RINAB: Primary CHELLE FLYNNB: [facility] 3979-07-23YI [address]OX Insurance:PRIME TIME [id number] [place] [address], Repository [address]Wux: (330) Number: [place] [id number]: [phone] [id number] (HP)Tel: (999) e Date:2018-06-29 - (HP) (WP) [id number] 000-0000 (WP) Name:[place] [address]RD:
== END ==
PROVIDERS: Family Provider Family Medicine; PCP Family Medicine; Visit Provider Surgery
DX: D05.12 Intraductal carcinoma in situ of left breast (principal); R92.0 Mammographic microcalcification found on diagnostic imaging of breast; K21.9 Gastro-esophageal reflux disease without esophagitis; Z87.891 Personal history of nicotine dependence
CPT/HCPCS: 19081; 88305; 88341; 88342; J7050; A4648

== ENCOUNTER → 2018-08-16 12:55 | Outpatient (CLI) | payer MEDICARE, SELFPAY ==
[2018-07-24 13:20] VITALS: BMI 37.9
[2018-08-09 09:08] VITALS: BMI 37.9
--- NOTE | 2018-08-16 12:58 | MRI_ITS ---
STUDY: BILATERAL BREAST MR WITHOUT AND WITH CONTRAST REASON FOR EXAM: Female, 68 years old. Recent positive left breast biopsy for invasive duct carcinoma. Evaluation of both breasts preoperative blue. TECHNIQUE: Multi-sequence multi-echo imaging of both breasts was performed with a dedicated breast coil. T1-weighted and T2-weighted images were performed before the administration of contrast. T1-weighted images were also performed after the administration of 10 mL of Gadavist contrast intravenously without complications. COMPARISON: Prior breast MRI dated December 13, 2007 and mammograms dated July 10, 2010. FINDINGS: RIGHT BREAST: The breast tissue is fatty with no background enhancement. There are no abnormal enhancing masses or areas of non-mass enhancement in the right breast. LEFT BREAST: The breast tissue is fatty with no background enhancement. There is a seroma cavity in the lower outer quadrant of the left breast measuring approximately 18 mm x 11 mm. There is an extensive area of linear clumped enhancement in the lower outer quadrant of the left breast measuring 6.8 cm x 10.7 cm x 6.1 cm. This area occupies nearly the entire lower outer quadrant of the left breast. There are no enlarged or abnormal lymph nodes. There is no abnormality in the visualized regions of the chest or liver. MRI/Breast Bilateral W/O and W IMPRESSION: No abnormality in the right breast. Extensive area of linear clumped enhancement in the lower outer quadrant of the left breast as described. CATEGORY: BIRADS Category 6: Known Biopsy-Proven Malignancy - Appropriate Action Should Be Taken. A letter regarding these results will be sent to the patient by the facility within 30 days. Electronically Signed: Danial Cates MD at 17:58 EST , Service support ,
== END ==
PROVIDERS: Family Provider Family Medicine; PCP Family Medicine; Referring Provider Surgery; Visit Provider Surgery
DX: C50.912 Malignant neoplasm of unspecified site of left female breast (principal); N64.89 Other specified disorders of breast
CPT/HCPCS: 77049; A9585; A4216; C8908

== ENCOUNTER 2018-09-07 06:58 | Day surgery (SDC) | payer MEDICARE, SELFPAY ==
[2018-08-24 13:19] VITALS: BMI 37.9
--- NOTE | 2018-09-06 10:06 | EKG12_ITS ---
Test Reason : PREOP Blood Pressure : / mmHG Vent. Rate : 079 BPM Atrial Rate : 079 BPM P-R Int : 174 ms QRS Dur : 086 ms QT Int : 374 ms P-R-T Axes : 015 030 047 degrees QTc Int : 428 ms Normal sinus rhythm Normal ECG Confirmed by TERRY CALLAWAY, FARRUKH (1958), photography editor JAS PARKER ([id number]) on 09/08/2018 2:34:08 PM Referred By: Anish Dave Confirmed By:FARRUKH STEWART MD
[2018-09-06 11:06] LABS: Hematocrit 41.9 % (37-47); Mean Corpuscular Hgb 30.3 pg (27.0-32.0); Mean Corpuscular Volume 97.7 fL (81-99); Mean Platelet Vol. 11.1 fl (6.2-12.0); Platelet Count 264 K/mm3 (150-450); RBC Distribution Width CV 13.2 % (11.6-14.6); RBC Distribution Width SD 47.1 fl (35.1-43.9); Red Blood Count 4.29 M/mm3 (4.2-5.4); White Blood Count 6.2 K/mm3 (4.4-11.0)
[2018-09-06 11:07] LABS: Scan Indicated on CBC? Y/N NO
[2018-09-07] VITALS (11 sets, daily range): BP systolic 120–168; BP diastolic 68–94; PULSE 77–99; RESP 16–18; TEMP 36–37.7; O2SAT 16–100; BMI 37.0
--- NOTE | 2018-09-07 | AXNB_PTH ---
PATIENT: CHELLE CAN LOC: [facility] U#:[id number] AGE/SX: 68/F ROOM: RE09/07/[address]: Dr. Anish Dave MD : 1950 BED: DIS: 09/08/2018 SPEC #: [id number] RECD: 09/07/18 10:08 STATUS: JAMIE ARIE #: [id number] MANNY: 09/07/18 00:[address]: Anish Dave DEPT: SURGICAL PATHOLOGY RECD BY: Mica Praksah ENTERED: 09/07/18 10:48 SP TYPE: AX NODE BX OTHR DR: MD Dr. Perico Marks MD Tissues: A - Axillary lymph node, NOS B - Left breast, NOS Procedures: Frozen Section (charge) Frozen Section Add'l ([facility]) Surgery Specimen Level IV Surgery Specimen Level V Frozen (no charge) HEADER OPERATION: Mastectomy, sentinel lymph node biopsy PRE-OP DIAGNOSIS: Malignant neoplasm of lower outer quadrant of left breast, ER positive TISSUE SUBMITTED: A - Left sentinel nodes, frozen section at 1003, B - Left breast FROZEN SECTION DIAGNOSIS A. Left axillary sentinel lymph nodes, biopsy: Three out of three lymph nodes negative for carcinoma. AM:nehal 09/07/18 MICROSCOPIC DIAGNOSIS A. Left sentinel lymph nodes, biopsy: Three out of three lymph nodes negative for carcinoma. Immunohistochemical stains with the appropriate controls for cytokeratin 7 and pancytokeratin AE1/AE3 are negative. B. Left breast, mastectomy: Invasive ductal carcinoma, [place] histologic grade 2, dimensions 1.5 x 1.5 x 1.3 cm. Ductal carcinoma in situ, intermediate grade, solid type with central necrosis, 2.0 x 1.4 x 1.0 cm. All mastectomy margins are free of invasive ductal carcinoma and DCIS. CE:nehal 09/11/18 INVASIVE BREAST CANCER SUMMARY: Procedure: Modified mastectomy Specimen type: Partial breast Specimen integrity: Single intact specimen Specimen size: 22 x 21 x 6 cm Invasive tumor size: 1.5 x 1.5 x 1.3 cm Tumor focality: Multiple microscopic foci of invasive carcinoma Macroscopic and Microscopic extent of tumor: Skin (dermis and epidermis): no tumor present. Nipple: No tumor present Skeletal muscle: Not sampled Histologic type of invasive carcinoma: Invasive ductal carcinoma Histologic Grade (Ansted grade): Glandular/tubular differentiation score: 3 Nuclear pleomorphism score: 2 Mitotic count score: 2 Overall grade: Grade 7 (score 2) Margins: Uninvolved by invasive carcinoma. Distance from closest margin (inferior) 1.6 cm Lymph-Vascular invasion: Not identified Dermal lymph-vascular invasion: Not identified Ductal carcinoma in situ (DCIS): Estimated size (extent) of DCIS: 2.0 x 1.4 x 1.0 cm Number of blocks with DCIS: 4 out of 11 Architectural patterns: Solid pattern with central necrosis and papillary DCIS pattern. Nuclear grade: Grade 2 Necrosis: Central necrosis present in several foci of solid-type DCIS. Lobular carcinoma in situ (LCIS): Not present Lymph nodes: Number of sentinel lymph nodes examined: 3 Total number of lymph nodes examined (sentinel and nonsentinel): 3 No evidence of macrometastases, micrometastases or isolated tumor cells. See specimen A Microcalcifications: Present in DCIS. Treatment effect: No known presurgical therapy. Additional pathologic findings: Changes of previous biopsy with multinucleated histiocytes and chronic inflammation. Ancillary studies: Previously performed on same tumor ([id number] / [id number]). ER: positive (>95%) AZ: positive (56%) Her2 judah: negative (1+) PATHOLOGIC STAGE: pT1c pN0(i-) Mx The above summary is in compliance with College of [place] Path[employer] (CAP) Cancer Protocols Checklist and [place] Joint Committee on Cancer (AJCC), Staging Manual, 8th Ed. COMMENT A. Immunohistochemistry ([id number]) supports the above diagnosis. Case has been reviewed in consultation with Dr. Roland who concurs with the above diagnosis. IDC:CE MICROSCOPIC DESCRIPTION Slides are reviewed. GROSS DESCRIPTION A - Received fresh for frozen section consultation labeled with the patient's name is a specimen designated left sentinel lymph nodes. The specimen consists of two irregular fragments of rosario-yellow fibrofatty tissue. One fragment measures 5 x 4.5 x 1.5 cm and the second fragment measures 4.5 x 2.5 x 1 cm. Dissection of these two fragments reveals three nodules resembling lymph nodes and ranging in size from 1 to 3 cm in greatest dimension. The nodules are submitted entirely for frozen section consultation as follows: 1 - one lymph node, 2 - one lymph node, 3 & 4 - one lymph node, serially sectioned. B - Received in fixative is one container labeled with the patient's name and designated left breast. The specimen consists of a modified radical mastectomy measuring 22 x 21 x 6 cm and weighing 908 gm. The anterior surface contains a skin ellipse measuring 21 x 12.5 cm and containing a centrally located nipple. No cutaneous mass lesions are identified. The specimen is inked and serially sectioned to reveal a firm, tanwhite gelatinous lesion measuring 1.5 x 1.5 x 1.3 cm. The lesion is located 1.6 cm from its closest (inferior) margin of excision. The remainder of the breast parenchyma is rosario-yellow and interrupted focally by white fibrous streaks. No other mass lesions are identified. Therapist Speech sections are submitted in 12 cassettes as follows: 1 - nipple and areola, 2 - perpendicular superior margin, inked, 3??perpendicular inferior margin, inked, 4 - perpendicular medial margin, inked, 5 - perpendicular lateral margin, inked, 6 - deep margin, inked, 7-9 - tumor, totally submitted, 10-12 - six national sales representative sections of uninvolved breast parenchyma adjacent to and away from the lesion. / AM:nehal 09/08/18 TC:0 CPT: 77253, 55034, 78827, 43955 x3 ADDENDUM ADDENDUM ADDENDUM ADDENDUM ADDENDUM ADDENDUM ADDENDUM ADDENDUM 10/03/2018 10:23 ADDENDUM 10/03/2018 10:23 ADDENDUM 10/03/2018 10:23 ADDENDUM 10/03/2018 10:23 ADDENDUM 10/03/2018 10:23 An order for Oncotype testing was received from Dr. Martínez. This necessitated case review, block and slide selection by pathologist at [facility]. Breast Cancer Recurrence Score = 18 Results of the complete Oncotype testing ([employer] report) are viewable in EMR under: Reports - Pathology - Lab Pathology Report, Scanned.
--- NOTE | 2018-09-07 | IMM_PTH ---
PATIENT: CHELLE CAN LOC: [facility] [place] U#:[id number] AGE/SX: 68/F ROOM: RE09/07/[address]: Dr. Anish Dave MD : 1950 BED: DIS: 09/08/2018 SPEC #: [id number] RECD: 09/11/18 13:36 STATUS: JAMIE REQ #: [id number] MANNY: 09/07/18 00:[address]: Anish Dave DEPT: IMMUNOHISTOCHEMISTRY RECD BY: Mica Prakash ENTERED: 09/11/18 13:37 SP TYPE: IMMUNO OTHR DR: MD Dr. Perico Marks MD Tissues: A - Axillary lymph node, NOS Procedures: CK7 (add) Pankeratin (initial) Pankeratin (add) PHYSICIAN & INSTITUTION [place] [address] SPECIMEN INFORMATION: Tissue Source: A - Left axillary sentinel lymph nodes, biopsy Clinical Info: Malignant neoplasm of lower outer quadrant left breast, ER positive Specimen Number: [id number] A1-4 CPT code: 30810, 67385 x7 METHODOLOGY: Deparaffinized sections of prefer/formalin-fixed tissue or PAP/DQ stained slides are incubated with monoclonal/polyclonal antibodies/oligonucleotide probes. Localization is made via biotin free immunoperoxidase method. Appropriate controls are performed and reacted as expected. Results on target cell population are indicated in the following table: RESULTS: ANTIBODY / CLONE RESULT Block 1 AE1-3 (AE1/AE3/PCK26) negative CK7 (OV-TL12/30) negative Block 2 AE1-3 (AE1/AE3/PCK26) negative CK7 (OV-TL12/30) negative Block 3 AE1-3 (AE1/AE3/PCK26) negative CK7 (OV-TL12/30) negative Block 4 AE1-3 (AE1/AE3/PCK26) negative CK7 (OV-TL12/30) negative These tests were developed and their performance characteristics determined by [facility]. They may not have been cleared or approved by the U.S. Food and Drug Administration. The FDA has determined that such clearance or approval is not necessary. INTERPRETATION: A. Left axillary sentinel lymph nodes, biopsy: Three out of three lymph nodes negative for carcinoma. CE:nehal 09/11/18
[2018-09-07] MEDS: Cefazolin 2 GM in 0.9% Normal Saline 100 ML IV ×3 (09:05→20:11)
[2018-09-07] MEDS: Isosulfan Blue 1% 5 ML Vial (09:18)
--- NOTE | 2018-09-07 10:25 | OP.PCM_ITS ---
Problem List (1) Malignant neoplasm of lower-outer quadrant of left female breast Status: Acute Qualifiers: Estrogen receptor status: positive Qualified Code(s): C50.512 - Malignant neoplasm of lower-outer quadrant of left female breast; Z17.0 - Estrogen receptor positive status [ER+] Report of Operation Date of Procedure: 09/07/18 Pre-Operative Diagnosis: Malignant neoplasia of lower outer quadrant of left breast female estrogen receptor positive Post-Operative Diagnosis: Same Surgery/Procedure Performed:: 1. Injection of 5 cc of Lymphazurin blue. 2. Left simple mastectomy. 3 sentinel lymph node biopsy Type of Anesthesia:: General Anesthesiologist: Swapnil Tejeda Specimen's removed: 1. Left breast. 2. [place] lymph node biopsies Drains: 2 round Nash-Lau drains Estimated Blood Loss (mL): 50cc Fluids Replaced: 800 cc lr Description of Procedure: Patient was brought into the operating room. Placed in the supine position. Under excellent general endotracheal sedation. Alcohol was used to prepped the nipple area. I injected 5 cc of Lymphazurin blue and massaged the breast for 5 minutes. The breast and axillary area were then sterilely prepped and draped. An elliptical incision was made around her breast breast flaps were created with use of Dyllan's and a plasma blade I went all the way down to the pectoralis major muscle inferiorly medially to the sternocleidomastoid muscle and I took the breast tissue off as high as I could on the pack but just inferior to the clavicle. I rotated the breast off of the pectoralis major muscle with the plasma blade using intermittent vascular clips for the perforating vessels. I had excellent hemostasis. I came to the lateral border of the clavipectoral fascia. I entered the left lateral border and dissected down until I saw the grouping of lymph nodes that were lightly blue I removed these with the harmonic dissector and sent them to pathology for frozen section which came back as 3 benign lymph nodes. I irrigated out the axillary area I took the remaining breast off laterally with the use of a harmonic dissector. I irrigated my wound. I placed 2 round Nash-Lau drains into the wound and sutured into the skin with 3-0 nylon. Needle and sponge count were correct. Flap was closed with deep dermal stitches of 3-0 Vicryl then a running 4-0 Monocryl. Steri- Strips are applied sterile dressings were applied and the patient tolerated the procedure well - Admit VTE Documentation VTE Present on Admission: No VTE Mechan Device Prophylaxis: SCD's VTE Pharm Prophylaxis ordered?: No Reason prophylaxis not ordered:: Treatment Not Indicated
[2018-09-07] MEDS: metroNIDAZOLE 500 MG Tablet PO ×2 (14:32→21:21)
[2018-09-07] MEDS: oxyCODONE 5 MG Tablet PO ×3 (14:36→22:14)
[2018-09-07] MEDS: Lactated Ringers 1,000 ML 75 ML IV (16:17)
[2018-09-08 02:00] VITALS: BP 116/70; PULSE 97; RESP 18; TEMP 37.1; O2SAT 94
[2018-09-08] MEDS: Cefazolin 2 GM in 0.9% Normal Saline 100 ML IV ×2 (02:12→07:52)
[2018-09-08] MEDS: oxyCODONE 5 MG Tablet PO ×3 (02:15→10:49)
[2018-09-08] MEDS: Ondansetron 4 MG/2 ML Vial IV (02:17)
[2018-09-08] MEDS: metroNIDAZOLE 500 MG Tablet PO (06:02)
[2018-09-08 07:30] VITALS: BP 122/57; PULSE 108; RESP 18; TEMP 37.9; O2SAT 85
--- NOTE | 2018-09-08 07:45 | NURSING ---
O2 SAT 85% ON RA. PT DENIES SOB/CHEST DISCOMFORT. LUNGS DIMINISHED. O2 2L NC PLACED.
[2018-09-08] MEDS: Pantoprazole Sodium 40 MG Tablet PO (07:52)
--- NOTE | 2018-09-08 10:21 | DCINST_ITS ---
Discharge Diet: No Restrictions Discharge Activity: May Not Drive - for 2-3 days or while taking narcotic pain meds. May shower in (days): 1 Lifting Restrictions: 10 pounds for 1 week. Call your doctor if your incision/area has: Continuous Slow Oozing, Sudden In creased Bleeding Call your doctor if you observe: Fever of 101 or Higher Suture Line Care: Avoid Pulling/Pushing, Avoid Pinching/Bending Remove Dressing in (days):: 1 - Remove bulky dressing tomorrow. May leave any opsite dressing for 3-4 days. Keep dressing in place until your follow-up appointment. Additional Dressing/Incision Instructions:: Remove bulky dressing tomorrow. May leave any opsite dressing for 3-4 days. Keep dressing in place until your follow-up appointment. Allergies/Adverse Reactions: Allergies naproxen Allergy (Verified 09/05/18 10:56) Other DIZZY Medications to take at Discharge Metronidazole [Flagyl] 500 mg PO TID 09/05/18 Omeprazole 40 mg PO DAILY 09/05/18 Oxycodone HCl/Acetaminophen [Percocet 5/325] 1 - 2 tab PO Q4H PRN PRN 5 Days #30 tab 09/07/18 The following prescriptions were given: Oxycodone HCl/Acetaminophen [Percocet 5/325] 1 - 2 tab PO Q4H PRN PRN 5 Days #30 tab PRN Reason: Pain Orders to be completed after discharge: 12 Lead EKG [CVS] Time Frame: 09/05/18, Facility: [facility], Location: Cardiovascular Services CBC-Complete Blood Cnt No Diff Time Frame: 09/05/18, Location: Laboratory Primary Care Physician: Cruzito Lemos MD [Primary Care Provider] -
--- NOTE | 2018-09-08 10:21 | PCM.PN.SRG ---
Patient Problems: Active and Suspected Problems (Last Reviewed 08/24/18 @ 16:49 by Anish Dave MD) Malignant neoplasm of lower-outer quadrant of left female breast (Acute) Subjective: Pain is well controlled. Objective: Incision is clean no signs of necrosis no overt bleeding ESTEBAN drainage is minimal - Physical Exam Vital Signs Temp Pulse Resp BP Pulse Ox 100.2 F H 108 H 18 122/57 H 85 09/08/18 07:30 09/08/18 07:30 09/08/18 07:30 09/08/18 07:30 09/08/18 07:30 Oxygen Flow Rate (L/min) 3 Oxygen Delivery Method Room Air Weight: 208 lb 12.444 oz Body Mass Index (BMI) 37.0 Intake and Output for Last 24 Hours 09/06/18 09/07/18 09/08/18 23:59 23:59 23:59 Intake Total 2324 / 2324 2185 / 2185 Output Total 575 / 575 770 / 770 Balance 1749 / 1749 1415 / 1415 Medical Necessity - Tobacco Use Smoking Status: Former smoker Tobacco Use: Cigarettes Assessment/Plan All Active Problems (Last Reviewed 08/24/18 @ 16:49 by Anish Dave MD) Malignant neoplasm of lower-outer quadrant of left female breast (Acute) Microcalcification of left breast on mammogram (Acute) Appropriately for her to be discharged today. She will follow-up with Verna Cassidy in 1 week to go over the final path report and to remove the drains
[2018-09-08 11:04] VITALS: BP 144/83; PULSE 97; RESP 18; TEMP 36.9; O2SAT 95
--- NOTE | 2018-09-08 11:14 | NURSING ---
In to review the mastectomy teaching packet and review drain care. also gave patient information on local support groups. pt aware that she will not be able to shower until after the drains are removed next week. pt and deny further questions.
[2018-09-08 12:27] VITALS: BP 144/83; PULSE 97; RESP 18; TEMP 36.9; O2SAT 95
== END 2018-09-08 12:25 | disposition home or self-care (01) ==
LOC: SDC 07:01 → AC 07:03 → MS3 11:11
PROVIDERS: Family Provider Family Medicine; PCP Family Medicine; Referring Provider Surgery; Visit Provider Surgery
PROC: (CPT 19307; principal; 2018-09-07 08:45)
DX: C50.512 Malignant neoplasm of lower-outer quadrant of left female breast (principal); Z17.0 Estrogen receptor positive status [ER+]; K21.9 Gastro-esophageal reflux disease without esophagitis; Z87.891 Personal history of nicotine dependence; Z23 Encounter for immunization
CPT/HCPCS: 00404; 19307; 38792; 36415; 85027; 88305; 88307; 88331; 88332; 88341; 88342; 93005; G0008; J7120; 90686; J2405; Q9968

== ENCOUNTER → 2018-09-28 13:50 | Outpatient (CLI) | payer MEDICARE, SELFPAY ==
[2018-09-19 08:54] VITALS: BMI 37.4
--- NOTE | 2018-09-28 13:57 | BD_ITS ---
STUDY: DUAL ENERGY X-RAY ABSORPTIOMETRY / DXA REASON FOR EXAM: Female, 68 years old. Early menopause. No loss of height. TECHNIQUE: Bone Mineral Density (BMD) measurements of lumbar spine and bilateral hips were obtained. COMPARISON: None. FINDINGS: Lumbar Spine (L1-L4): g/cm2 (1.598) / T-score (3.5) / Z-score (5.1) Findings are suggestive of normal bone density with a low fracture risk. Left Femur Total: g/cm2 (1.305) / T-score (2.4) / Z-score (3.7) Left Femoral Neck: g/cm2 (1.151) / T-score (0.8) / Z-score (2.4) Right Femur Total: g/cm2 (1.25) / T-score (2.0) / Z-score (3.3) Right Femoral Neck: g/cm2 (1.141) / T-score (0.7) / Z-score (2.3) BD/Dexa Bone Density Study IMPRESSION: The patient is considered normal as outlined below according to World Evans Organization (WHO) criteria with a low fracture risk. Reference Information: The T-score is the number of standard deviations above or below the standard which is normal for young adults at their peak bone mineral density. The World Health Organization (WHO) interprets the T-scores as follows: Above -1 Normal bone density Between -1 and -2.5 Osteopenia Equal to / or below -2.5 Osteoporosis As a practical clinical guideline, osteopenia may be graded as follows: Mild -1 through -1.5 Moderate -1.6 through -2.0 Severe -2.1 through -2.4 The Z-score is the number of standard deviations above or below age-matched controls. A Z-score of less than -1.5 would be considered abnormal. References: 1. NIH Osteoporosis and Related Bone Diseases http://www.osteo.org 2. International Society for Clinical Densitometry http://www.iscd.org 3. National Osteoporosis Foundation http://www.nof.org Electronically Signed: Ricco Dominguez MD at 8:35 EST , Service support ,
== END ==
PROVIDERS: Family Provider Family Medicine; PCP Family Medicine; Referring Provider Internal Medicine Medical Oncology; Visit Provider Internal Medicine Medical Oncology
DX: C50.512 Malignant neoplasm of lower-outer quadrant of left female breast (principal); Z13.820 Encounter for screening for osteoporosis; Z78.0 Asymptomatic menopausal state
CPT/HCPCS: 77080

== ENCOUNTER → 2018-10-04 13:57 | Outpatient (CLI) | payer MEDICARE, SELFPAY ==
[2018-10-03 15:25] VITALS: BMI 37.0
--- NOTE | 2018-10-04 14:00 | RAD_ITS ---
STUDY: X-RAY - ABDOMEN/PELVIS REASON FOR EXAM: Female, 68 years old. Abdominal distention TECHNIQUE: Supine and upright views of the abdomen and pelvis were obtained. COMPARISON: None. FINDINGS: Lung Bases: Unremarkable. Abdomen: No demonstrated abnormality of the major organs. No demonstrated free air. Cholecystectomy clips are present. Bowel: Unremarkable bowel gas pattern. Soft tissues: Unremarkable. Bones: Diffuse degenerative changes. RAD/Abd Inc Decub and/or Erect IMPRESSION: No acute abnormalities are seen in the abdomen or pelvis. Electronically Signed: Ebonie Nunes MD at 16:52 EST , Service support ,
== END ==
PROVIDERS: Family Provider Family Medicine; PCP Family Medicine; Referring Provider Internal Medicine Gastroenterology; Visit Provider Internal Medicine Gastroenterology
DX: R14.0 Abdominal distension (gaseous) (principal)
CPT/HCPCS: 74019

== ENCOUNTER → 2020-09-05 12:25 | Outpatient (CLI) | payer MEDICARE, SELFPAY ==
[2020-08-28 13:28] VITALS: BMI 36.0
--- NOTE | 2020-09-05 12:27 | CT_ITS ---
STUDY: CT CHEST WITHOUT CONTRAST REASON FOR EXAM: Female, 70 years old. LEFT CHEST WALL MASS NEAR MASTECTOMY SITE, WAS FOUND ON US. BREAST CANCER 2019 RADIATION DOSAGE (If Supplied By Facility): CTDIvol = ( 13.82 ) mGy, DLP = ( 469.58 ) mGycm TECHNIQUE: Transaxial imaging was performed without the administration of intravenous contrast material. Multiplanar coronal and sagittal images were reformatted. Individualized dose optimization techniques were used for this CT. COMPARISON: None. FINDINGS: Small benign appearing bilateral axillary lymph nodes. Images appearance of the posterior aspect of the right lobe of the thyroid. Surgical clips are seen in the deep portion of the left anterior chest wall at the mastectomy site. There is a 1 cm x 0.7 cm nodular density in the deep aspect of the left anterior chest wall at the level of the pectoralis muscle just caudad to the surgical clip. The lungs are normal. There is no demonstrated pleural abnormality. Normal heart and pericardium. Normal mediastinum. Normal hilar regions. Normal unenhanced pulmonary arteries. Normal aorta arch and descending thoracic aorta. Normal osseous structures. Diffuse fatty infiltration of the liver. CT/Chest without Contrast IMPRESSION: Status post left mastectomy. 1 cm x 0.7 cm nodular density in the deep aspect of the left anterior chest wall at the mastectomy site just caudad to the surgical clip. Electronically Signed: Ricco Dominguez MD at 12:55 EST , Service support ,
== END ==
PROVIDERS: PCP Family Medicine; Referring Provider Internal Medicine Medical Oncology; Visit Provider Internal Medicine Medical Oncology
DX: R22.2 Localized swelling, mass and lump, trunk (principal); Z85.3 Personal history of malignant neoplasm of breast
CPT/HCPCS: 71250

== ENCOUNTER → 2020-09-24 11:59 | Outpatient (CLI) | payer MEDICARE, SELFPAY ==
[2020-08-18 13:13] VITALS: BMI 35.9
[2020-09-09 11:12] VITALS: BMI 35.8
--- NOTE | 2020-09-24 12:17 | US_ITS ---
STUDY: ULTRASOUND OF THE FEMALE PELVIS - COMPLETE REASON FOR EXAM: Female, 70 years old. bloating , pain LMP: Unknown. TECHNIQUE: Transabdominal and Transvaginal TECHNICAL QUALITY: Adequate. COMPARISON: None. FINDINGS: The uterus is anteverted and is tilted to the right side of the pelvis. The uterus measures 7.5 x 5.0 x 3.3 cm. Normal uterine cervix. The endometrium measures 3.3 mm in thickness, and is heterogeneous (striated). There is no demonstrated endometrial mass. There is no demonstrated myometrial mass. I.U.D. - The patient does not have an I.U.D. The right ovary is visualized. The right ovary measures 2.1 x 0.9 x 1.0 cm. There is no right ovarian cyst or ovarian mass. There is no visualized right adnexal mass or complex lesion. There is normal arterial and normal venous vascularity. The left ovary is visualized. The left ovary measures 1.9 x 1.5 x 1.6 cm. There is no left ovarian cyst or ovarian mass. There is no visualized left adnexal mass or complex lesion. There is normal arterial and normal venous vascularity. There is no fluid in the cul-de-sac. The bladder is sonographically normal with estimated capacity of 271 mL US/Transvaginal Non- IMPRESSION: No suspicious sonographic findings, specifically, the endometrial thickness is within normal range Electronically Signed: Neo Nielson MD at 13:53 EST , Service support ,
--- NOTE | 2020-09-24 12:17 | US_ITS ---
STUDY: ULTRASOUND OF THE FEMALE PELVIS - COMPLETE REASON FOR EXAM: Female, 70 years old. bloating , pain LMP: Unknown. TECHNIQUE: Transabdominal and Transvaginal TECHNICAL QUALITY: Adequate. COMPARISON: None. FINDINGS: The uterus is anteverted and is tilted to the right side of the pelvis. The uterus measures 7.5 x 5.0 x 3.3 cm. Normal uterine cervix. The endometrium measures 3.3 mm in thickness, and is heterogeneous (striated). There is no demonstrated endometrial mass. There is no demonstrated myometrial mass. I.U.D. - The patient does not have an I.U.D. The right ovary is visualized. The right ovary measures 2.1 x 0.9 x 1.0 cm. There is no right ovarian cyst or ovarian mass. There is no visualized right adnexal mass or complex lesion. There is normal arterial and normal venous vascularity. The left ovary is visualized. The left ovary measures 1.9 x 1.5 x 1.6 cm. There is no left ovarian cyst or ovarian mass. There is no visualized left adnexal mass or complex lesion. There is normal arterial and normal venous vascularity. There is no fluid in the cul-de-sac. The bladder is sonographically normal with estimated capacity of 271 mL US/Pelvic (Non ) IMPRESSION: No suspicious sonographic findings, specifically, the endometrial thickness is within normal range Electronically Signed: Neo Nielson MD at 13:53 EST , Service support ,
== END ==
PROVIDERS: PCP Family Medicine; Referring Provider Nurse Practitioner Women's Health; Visit Provider Nurse Practitioner Women's Health
DX: R14.0 Abdominal distension (gaseous) (principal)
CPT/HCPCS: 76830; 76856

== ENCOUNTER 2020-10-13 15:30 | Outpatient (RCR) | payer MEDICARE, SELFPAY ==
[2020-09-25 09:38] VITALS: BMI 35.5
== END 2020-10-13 23:59 ==
LOC: IMMUN 15:30
PROVIDERS: PCP Family Medicine; Referring Provider Family Medicine; Visit Provider Family Medicine
DX: Z23 Encounter for immunization (principal)
CPT/HCPCS: 0011A; 0012A

== ENCOUNTER 2020-10-31 11:49 | Day surgery (SDC) | payer MEDICARE, SELFPAY ==
[2020-09-25 09:38] VITALS: BMI 35.5
--- NOTE | 2020-10-31 | IMM_PTH ---
PATIENT: CHELLE CAN LOC: [facility] [place] U#:[id number] AGE/SX: 70/F ROOM: RE10/31/[address]: Dr. Anish Dave MD : 1950 BED: DIS: 10/31/2020 SPEC #: [id number] RECD: 11/04/20 12:42 STATUS: JAMIE REQ #: [id number] MANNY: 10/31/20 00:[address]: Anish Dave DEPT: IMMUNOHISTOCHEMISTRY RECD BY: Mica Prakash ENTERED: 11/04/20 12:44 SP TYPE: IMMUNO OTHR DR: Dr. Cruzito Lemos MD Tissues: Chest wall, NOS Procedures: RCC (add) NAPSIN A (add) CK20 (add) CK5-6 (add) CK7 (add) CK8 (add) E-CAD (add) HEP PAR (add) HER2 YOLA (add) MAMM (add) MT (add) TTF1 (add) Pankeratin (add) GATA3 (add) P40 (add) ER (initial) PHYSICIAN & [address] [address] SPECIMEN INFORMATION: Tissue Source: Left chest wall mass Clinical Info: Left chest wall mass Specimen Number: [id number] #1 CPT code: 27369, 57508 x15 METHODOLOGY: Deparaffinized sections of prefer/formalin-fixed tissue or PAP/DQ stained slides are incubated with monoclonal/polyclonal antibodies/oligonucleotide probes. Localization is made via biotin free immunoperoxidase method. Appropriate controls are performed and reacted as expected. Results on target cell population are indicated in the following table: RESULTS: ANTIBODY / CLONE RESULT Block 1 ER (6F11) positive (>95%, moderate intensity) MT (1E2) positive (48%, moderate intensity) Her-2neu (CB11) negative (1+) E-Cad (ECH-6) positive Mammaglobin (31A5) positive GATA3 (L50-823) positive AE1-3 (AE1/AE3/PCK26) positive CK7 (OV-TL12/30) positive CK8 (16udzmO58) positive CK20 (KS20.8) negative TTF-1 (8G7G3/1) negative Napsin A (Rabbit Polyclonal) negative HepPar (OCh1E5) negative RCC (PN-15) positive, weak CK5-6 (D5 & 1684) negative P40 (BC28) negative These tests were developed and their performance characteristics determined by [facility]. They may not have been cleared or approved by the U.S. Food and Drug Administration. The FDA has determined that such clearance or approval is not necessary. The above immunohistochemical/dualISH markers are ordered and reviewed by the Pathologist. INTERPRETATION: Left chest wall mass, wire localization excisional biopsy: Metastatic invasive ductal carcinoma consistent with breast primary. SJ:nehal 11/05/2020
[2020-10-31 12:20] VITALS: BP 144/75; PULSE 96; RESP 16; TEMP 37.5; O2SAT 97; BMI 34.6
[2020-10-31] MEDS: Lactated Ringers 1,000 ML 100 ML IV (12:30)
[2020-10-31] MEDS: Cefazolin 2 GM in 0.9% Normal Saline 100 ML IV (14:08)
--- NOTE | 2020-10-31 14:10 | SOF_PTH ---
PATIENT: CHELLE CAN [place] [facility] [place][id number] AGE/SX: 70/F ROOM: RE10/31/[address]: Dr. Anish Dave MD : 1950 BED: DIS: 10/31/2020 SPEC #: [id number] RECD: 10/31/20 15:28 STATUS: JAMIE RENéstor #: [id number] MANNY: 10/31/20 14:[address]: Anish Dave DEPT: SURGICAL PATHOLOGY RECD BY: Carri Burton ENTERED: 11/03/20 07:56 SP TYPE: SOFT TISS OTHR DR: Dr. Cruzito Lemos MD Tissues: Soft tissues, NOS Procedures: Surgery Specimen Level IV HEADER OPERATION: OR wire localized excision of chest wall tumor PRE-OP DIAGNOSIS: Left chest wall mass TISSUE SUBMITTED: Left chest wall mass MICROSCOPIC DIAGNOSIS Left chest wall mass, wire localization excisional biopsy: Metastatic invasive ductal carcinoma consistent with breast primary (2 cm in greatest dimension). See comment. SJ:rg 11/04/2020 COMMENT Immunohistochemistry ([id number]) supports the above diagnosis. The resection margins are free of tumor. Skeletal muscle tissue is also noted in the specimen and free of tumor. Please make reference to previous specimen ([id number]) left breast, mastectomy with diagnosis of invasive ductal carcinoma. Case has been reviewed in consultation with Dr. Cornejo who concurs with the above diagnosis. IDC:AM MICROSCOPIC DESCRIPTION Slides are reviewed. GROSS DESCRIPTION Received in fixative is one container labeled with the patient's name and designated left chest wall mass. The specimen consists of an irregular fragment of rosario-yellow fibrofatty tissue containing a metallic wire and measuring 5.5 x 3 x 2.2 cm and weighing 15.6 gm. No orientation is provided. The area with suture is inked in yellow ink. The remainder of the specimen is inked in black ink. Serial sections reveal a white, indurated mass measuring 2 x 1.2 x 1 cm. The mass is serially sectioned and submitted in its entirety in four cassettes. / AM:nehal 11/03/20 TC:0 CPT: 50805
--- NOTE | 2020-10-31 14:46 | OP.PCM_ITS ---
Problem List (1) Metastatic breast cancer Status: Acute Report of Operation Date of Procedure: 10/31/20 Pre-Operative Diagnosis: Metastatic breast cancer left chest wall Post-Operative Diagnosis: Same Surgery/Procedure Performed:: Ultrasound-guided wire localization of a 1.5 cm metastatic lesion to the left chest wall. Excision of a 1.5 cm metastatic cancer to the left chest wall Type of Anesthesia:: General Anesthesiologist: Swapnil Tejeda Specimen's removed: Metastatic breast cancer left chest wall Estimated Blood Loss (mL): < 25 cc Description of Procedure: Patient was brought into the operating room. Placed in the supine position. Under excellent general trach intubation the left chest wall area was ultrasound lesion was identified. I prepped the skin with alcohol. Kopan's wire was placed directly through the lesion. The left chest wall then was sterilely prepped and draped in usual fashion. I opened up her previous incision using electrocautery I dissected all the way around this. I took part of the pectoralis major muscle in the process. At no time did I enter the metastatic area. Use electrocautery for good in the stasis. I placed 4 small vascular clips in a linear fashion directly where the tumor was located. I then brought the subcu together with 2-0 Vicryl. Deep dermals a 3-0 Vicryl then a running 4- 0 Monocryl. Dermabond was applied sterile dressings were applied and the patient tolerated the procedure well. - Admit VTE Documentation VTE Present on Admission: No VTE Mechan Device Prophylaxis: SCD's VTE Pharm Prophylaxis ordered?: No Reason prophylaxis not ordered:: Treatment Not Indicated
--- NOTE | 2020-10-31 14:54 | DCINST_ITS ---
Discharge Diet: No Restrictions Discharge Activity: Return to Normal Activity May shower in (days): 3 Remove Dressing in (days):: 3 - Leave Dermabond in place. Allergies/Adverse Reactions: Allergies naproxen Allergy (Verified 10/29/20 13:05) Other DIZZY Medications to take at Discharge Omeprazole 40 mg PO DAILY 09/05/18 Tamoxifen Citrate [Nolvadex] 20 mg PO DAILY 90 Days #90 tab 10/02/19 Oxycodone HCl/Acetaminophen [Percocet 5/325] 1 - 2 tablet PO Q4H PRN PRN 6 Days #30 tablet 10/31/20 Primary Care Physician: Cruzito Lemos MD [Primary Care Provider] - Test Results: Test results from this visit will be discussed in further detail at your follow- up appointment, if applicable. Please Follow Up With: Verna Styles PA-C - [phone] When: Please call for an appointment to be seen in one week.
[2020-10-31] MEDS: Bupivacaine Mpf 0.5% 30 ML VIAL (14:56)
[2020-10-31 15:05] VITALS: BP 122/95; BP 144/75; PULSE 92; RESP 18; TEMP 36.6; O2SAT 95
[2020-10-31 15:15] VITALS: BP 132/62; BP 144/75; PULSE 92; RESP 18; O2SAT 94
[2020-10-31 15:29] VITALS: BP 125/71; BP 144/75; PULSE 86; RESP 18; TEMP 37.1; O2SAT 95
[2020-10-31 15:30] LABS: Mucous, Urine 0 SEEN /hpf (<or=2+)
[2020-10-31 15:36] LABS: Color, Urine Yellow (Yellow); Glucose, Dipstick Normal (Normal); Ketone-Dipstick 15 mg/dl (Negative); Leukocyte Esterase-Dipstick 500 /ul (Negative); Nitrite-Dipstick Negative (Negative); Occult Blood-Urine 250 /ul (Negative); Protein-Dipstick 100 mg/dl (Negative); Specific Gravity, Urine 1.015 (1.002-1.030); Urine Bilirubin Dipstick Negative (Negative); Urine Clarity Cloudy (Clear); Urine Urobilinogen Normal (Normal)
[2020-10-31 15:47] LABS: Amorphous Sediment 1+ URATE; Bacteria RARE /hpf (None Seen); Red Blood Cells-Urine > 100 SEEN /hpf (0-5); Squamous Epithelial Cells - UA 5-10 SEEN /hpf (5-10); White Blood Cells >100 SEEN /hpf (0-5)
[2020-10-31 16:10] VITALS: BP 134/78; BP 144/75; PULSE 91; RESP 16; TEMP 37; O2SAT 97
== END 2020-10-31 16:25 | disposition home or self-care (01) ==
LOC: SDC 11:50 → AC 11:51
PROVIDERS: PCP Family Medicine; Referring Provider Surgery; Visit Provider Surgery
PROC: (CPT 21601; principal; 2020-10-31 13:55)
DX: C50.912 Malignant neoplasm of unspecified site of left female breast (principal); C79.89 Secondary malignant neoplasm of other specified sites; I10 Essential (primary) hypertension; K21.9 Gastro-esophageal reflux disease without esophagitis; Z87.891 Personal history of nicotine dependence
CPT/HCPCS: 21601; 81001; 87426; 88305; 88341; 88342; C9803; J7120; J2405

== ENCOUNTER → 2021-03-16 12:45 | Outpatient (CLI) | payer MEDICARE, SELFPAY ==
[2020-11-27 14:35] VITALS: BMI 34.9
[2021-02-03 10:11] VITALS: BMI 34.2
--- NOTE | 2021-03-16 12:48 | CT_ITS ---
EXAM DESCRIPTION: CT scan of the abdomen and pelvis CLINICAL HISTORY: 70 years Female, ABNORMAL PET COMPARISON: PET/CT report from 09/23/2020 TECHNIQUE: A CT scan of the abdomen and pelvis was performed with IV contrast contrast administration. Oral contrast was also administered. Coronal and sagittal reconstruction images were reviewed. This exam was performed according to our departmental dose-optimization program, which includes automated exposure control, adjustment of the mA and/or kV according to patient size and/or use of iterative reconstruction technique. FINDINGS: The lung bases and the base of the heart are normal. This patient''s had a left mastectomy. The liver is normal.The spleen is normal.The adrenal glands are normal.The head, body, and tail of the pancreas are normal. The right and left kidneys were examined and appear to be normal. Both ureters appear to be normal, and no obstructive uropathy is identified. The abdominal aortal is normal along its course and distribution. No paraortic lymphadenopathy is seen. No abdominal masses or lesions are seen. Careful attention was paid to the ascending colon and the right upper quadrant at the site of the abnormality reported on PET/CT reported no abnormalities are noted in this location. The CT scan of the pelvis was then reviewed. The common iliac vessels, external iliac vessels, and common femoral vessels are normal along their course and distribution No pelvis masses or lesions are seen. The appendix is normal. No pericecal inflammatory reaction is seen. Bone scanning windows of the lumbar spine and pelvis were reviewed in the coronal and sagittal planes and appear to be normal. CT/Abdomen/Pelvis WITH Contrast IMPRESSION: Status post left mastectomy, in this otherwise normal CT scan of the abdomen and pelvis. Electronically Signed: Salvador Latif DO at 14:48 EDT Tel , Service support ,
[2021-03-16 13:05] LABS: CREATININE FINGERSTICK 0.9 mg/dL (0.55-1.02); EGFR FINGERSTICK > 60.0000 mL/min (>60)
== END ==
PROVIDERS: PCP Family Medicine; Referring Provider Internal Medicine Medical Oncology; Visit Provider Internal Medicine Medical Oncology
DX: C50.912 Malignant neoplasm of unspecified site of left female breast (principal); R93.3 Abnormal findings on diagnostic imaging of other parts of digestive tract
CPT/HCPCS: 74177; Q9967

== ENCOUNTER → 2021-12-03 | Outpatient (CLI) | payer MEDICARE, SELFPAY ==
[2020-11-27 14:35] VITALS: BMI 34.9
--- NOTE | 2021-12-03 10:39 | US_ITS ---
STUDY: ULTRASOUND BREAST - LEFT REASON FOR EXAM: Female, 71 years old. Breast pain TECHNIQUE: Axial and longitudinal images of the LEFT breast were performed with a high resolution ultrasound transducer. # OF IMAGES: 44 COMPARISON: None. FINDINGS: LEFT Breast: Heterogeneous background echotexture. Multiple longitudinal and transverse ultrasound images of the retroareolar left breast confirm a 2 x 4 cm oval parallel circumscribed anechoic mass with posterior enhancement consistent with a cyst or postoperative seroma.: US/Breast Limited Unilateral IMPRESSION: 2 x 4 cm cyst or postoperative seroma in the retroareolar left breast. ASSESSMENT CATEGORY: BIRADS Category 2: Benign. A letter regarding these results will be sent to the patient by the facility within 30 days. Electronically Signed: Pradeep Horowitz MD at 12:05 EDT ,
== END | disposition home or self-care (01) ==
PROVIDERS: PCP Family Medicine; Referring Provider Internal Medicine Medical Oncology; Visit Provider Internal Medicine Medical Oncology
DX: N60.02 Solitary cyst of left breast (principal); N64.4 Mastodynia
CPT/HCPCS: 76642

== ENCOUNTER → 2021-12-22 | Outpatient (CLI) | payer MEDICARE, SELFPAY ==
[2020-11-27 14:35] VITALS: BMI 34.9
--- NOTE | 2021-12-22 12:42 | BD_ITS ---
STUDY: DUAL ENERGY X-RAY ABSORPTIOMETRY / DXA REASON FOR EXAM: Female, 71 years old. POSTMENOPAUSAL SCREENING TECHNIQUE: Bone Mineral Density (BMD) measurements of lumbar spine and bilateral hips were obtained. COMPARISON: Comparison is made with prior study dated 09/28/2018. FINDINGS: Lumbar Spine (L1-L4): g/cm2 (1.336) / T-score (2.6) / Z-score (4.8) Findings are suggestive of normal bone density with a low fracture risk. Left Femur Total: g/cm2 (1.143) / T-score (1.7) / Z-score (3.2) Left Femoral Neck: g/cm2 (0.900) / T-score (0.5) / Z-score (2.3) Right Femur Total: g/cm2 (1.165) / T-score (1.8) / Z-score (3.3) Right Femoral Neck: g/cm2 (0.855) / T-score (0.1) / Z-score (1.9) The T-Scores on the most recent prior examination were: Lumbar Spine (L1-L4): There has been worsening of bone density since the previous examination. Left Femur Total: which represents a worsening of 7.1%. Right Femur Total: which represents a worsening of 1.6%. BD/Dexa Bone Density Study IMPRESSION: The patient is considered normal as outlined below according to World Evans Organization (WHO) criteria with a low fracture risk. There has been worsening of bone density since the previous examination. Reference Information: The T-score is the number of standard deviations above or below the standard which is normal for young adults at their peak bone mineral density. The World Health Organization (WHO) interprets the T-scores as follows: Above -1 Normal bone density Between -1 and -2.5 Osteopenia Equal to / or below -2.5 Osteoporosis As a practical clinical guideline, osteopenia may be graded as follows: Mild -1 through -1.5 Moderate -1.6 through -2.0 Severe -2.1 through -2.4 The Z-score is the number of standard deviations above or below age-matched controls. A Z-score of less than -1.5 would be considered abnormal. References: 1. NIH Osteoporosis and Related Bone Diseases www osteo.org 2. International Society for Clinical Densitometry www iscd.org 3. National Osteoporosis Foundation www nof.org Electronically Signed: Ricco Dominguez MD at 12:46 EDT ,
== END | disposition home or self-care (01) ==
LOC: OPBD 12:28
PROVIDERS: PCP Family Medicine; Referring Provider Internal Medicine Medical Oncology; Visit Provider Internal Medicine Medical Oncology
DX: Z78.0 Asymptomatic menopausal state (principal)
CPT/HCPCS: 77080

== ENCOUNTER → 2021-12-24 | Outpatient (CLI) | payer MEDICARE, SELFPAY ==
[2020-11-27 14:35] VITALS: BMI 34.9
--- NOTE | 2021-12-24 07:44 | NM_ITS ---
CLINICAL: Female, 71 years old. JOINT PAIN, DIFFICULT AMBULATION, GENERALIZED STIFFNESS -- BREAST CANCER 3 YEARS AGO WITH RECENT RECURRANCE WHOLE BODY NUCLEAR BONE SCAN TECHNIQUE: Following the IV administration of 25.4 mCi of Tc MDP, whole body bone imaging was performed with a gamma camera following a three hour delay. COMPARISON STUDIES : NM - None. CR - Not available for review at this time. CT - Not available for review at this time. MR - Not available for review at this time. US - Not available for review at this time. FINDINGS: There is a normal concentration of radiopharmaceutical throughout the axial and appendicular skeletal system without either a focal decrease or increase in uptake. NM/Bone Scan Whole Body IMPRESSION: Normal whole body nuclear bone scan. Electronically Signed: Pradeep Horowitz MD at 9:43 EDT ,
== END | disposition home or self-care (01) ==
PROVIDERS: PCP Family Medicine; Referring Provider Internal Medicine Medical Oncology; Visit Provider Internal Medicine Medical Oncology
DX: M25.50 Pain in unspecified joint (principal); Z85.3 Personal history of malignant neoplasm of breast
CPT/HCPCS: 78306; A9503

== ENCOUNTER → 2022-01-27 | Outpatient (CLI) | payer MEDICARE, SELFPAY ==
[2020-11-27 14:35] VITALS: BMI 34.9
--- NOTE | 2022-01-27 13:03 | NEURO ---
NCS and/or EMG Patient Report Ordering Doctor: Tristan Douglass DATE OF SERVICE: 01/27/22 Wendie presents for electrodiagnostic testing of the upper limbs. She reports numbness and tingling in both hands. Electrodiagnostic findings: Median motor nerve demonstrates prolonged distal latency on the left side with reduced amplitude and reduced conduction velocity. Right median motor nerve demonstrates prolonged distal latency with normal amplitude and reduced conduction velocity. Normal left and right ulnar motor response bilaterally. Prolonged median F wave bilaterally. Prolonged median sensory latency at the wrist bilaterally. Normal ulnar and radial sensory responses. On needle EMG, all muscles tested in the upper limbs showed no evidence of denervation with normal motor unit action potentials. Electrodiagnostic impression: This is an abnormal study in the upper limbs 1. Electrodiagnostic findings demonstrate bilateral median mononeuropathy. This is consistent with a mild to moderate right carpal tunnel syndrome and a moderate left carpal tunnel syndrome. 2. No electrodiagnostic evidence is noted for cervical radiculopathy.
== END | disposition home or self-care (01) ==
PROVIDERS: PCP Family Medicine; Referring Provider Physician Assistant Surgical; Visit Provider Physician Assistant Surgical
DX: R20.2 Paresthesia of skin (principal)
CPT/HCPCS: 95886; 95911

== ENCOUNTER 2022-03-10 14:30 | Outpatient (RCR) | payer MEDICARE, SELFPAY ==
[2020-11-27 14:35] VITALS: BMI 34.9
--- NOTE | 2022-02-18 07:35 | HP.OTEVAL_ITS ---
Patient's Visit Information CHELLE CAN is a 71 year old F, referred to Occupational Therapy by Dr. Estrada Mahoney DO, with a diagnosis of lymphedema. Date of Evaluation: 02/17/22 Occupational Therapist: Lien Louie, VINCE/Scar, CHT - Subjective This 71 year old female was seen for dx of lymphedema- pt states she went to o rtho for knee pain in sep- Flew in plan in Sep without compression sleeve and in October and noticed increase size of left UE- she developed bilateral tingling in median nerve distribution- and goes up her arm- pt had nerve conduction test done indicating hernandez nerve distribution-. pt had mastectomy 2018 revision in October 2019- and will undergo a left CTR on February 24. pt would like to know what she can do to decrease risk of lymphedema complications- - ROM Shoulder: right WNL left 100* flex states pulling at mastectomy site ROM Comments: pt demo limited left shoulder ROM. left digits pt demo limited composite fist of .5cm away from composite - Strength Wedger And Gluer: right 20# left 8# Lateral Pinch: right 6# left 4# Tripod Pinch: right 4# left unable Strength Comments: pt demo with bilateral weakness- greater on left - Lymphedema (Circumferential Measure) MCP: right 18.5 cm left 20cm Wrist: right 17cm left 17.5cm Lower forearm: right 22cm left 22.5cm Largest forearm: right 28cm left 28cm Elbow: right 27cm left 29cm Largest humerus: right 33cm left 35cm Axcillary: right 35cm left 36cm Upper Exremity Comments: pt states she had some swelling under her arm put and over chest wall some soreness - Sensation Thumb: right 2.83 left 2.83 Index: right 2.83 left 2.83 Middle: right 2.83 left 2.83 Ring: right 2.83 left 2.83 Little: right 2.83 left 2.83 Sensation Comments: sensation testing indicates normal sensation - Quick DASH-Disab of Arm,Shoulder& Hand Quick DASH Score: 37.5000 - Goals Demonstrate a 20% reduction in edema by d/c: Yes Demonstrate adequate knowledge of self-massage by 2nd week: Yes Demonstrate adequate knowledge skin care/prec by 2nd week: Yes Demonstrate adequate knowledge therapeutic exercises by d/c: Yes Select approp compression garment w/donning/care/wear by d/c: Yes Goal: Patient will demonstrate ROM WFL by discharge.: Yes Goal:: pt will demo a increase in left shoulder ROM by 40* to increase pts ind. with ADLs and IADLs. - Rehabilitation General Assessment: pt demo with limited left shoulder ROM and tightness along mastectomy's incision- pt having tingling in bilateral UE and demo weakness limiting pts ind. with ADLs and IADLs- pt also has not been to anyone for lymphedema and does not know what she can do to mtg. swelling and prevent complications- pt would benefit from skilled OT services 1-2x week for 4 weeks to ed. pt on lymphedema mtg- skin care- lymph stimulation exercise and self manual lymph drainage- therapist ed. pt on compression garments for arm and hand. pt demo understanding and agrees to POC. Rehabilitation Potential: Good - Anticipated Interventions A/AAROM/PROM, Strengthening, Education re assistive Equipment, Education re Diagnosis, Manual Lymph Drainage, Education re Life-long lymphedema Management, Education re Skin Care and Precautions, Education re Self Massage Techniques, Education re Correct Donning Tech,Care&Wearing Sched Comp Garments, Home Program - Visit Plan Frequency: 1-2x /Week Duration: 4 Weeks TEXT: Thank you for the opportunity to evaluate your patient. For Medicare and Medicare HMO plans, please review the plan of care and approve it. It will need to be FAXED BACK to us at [phone] for Medicare purposes. Please let me know if there are questions or concerns regarding this plan of care. Physician Signature: Date:
== END 2022-03-10 19:00 | disposition home or self-care (01) ==
LOC: OT 14:30
PROVIDERS: PCP Family Medicine; Visit Provider Student in an Organized Health Care Education/Training Program
DX: I89.0 Lymphedema, not elsewhere classified (principal)
CPT/HCPCS: 97110; 97166; 97530

== ENCOUNTER 2022-05-18 13:00 | Outpatient (RCR) | payer MEDICARE, SELFPAY ==
[2020-11-27 14:35] VITALS: BMI 34.9
--- NOTE | 2022-04-21 14:00 | HP.PTEVAL_ITS ---
Patient's Visit Information CHELLE CAN is a 71 year old F referred to Physical Therapy by Dr. Estrada Mahoney, with a diagnosis of Bilateral Shoulder Pain. Date of Evaluation: 04/21/22 Physical Therapist: Tran Silvestre DPT - Visit Plan Frequency: 2x /Week Duration: 4 Weeks Plan: Focus on UE and scapular strength/stabilization- modality of heat/ice only. HEP Given IE: Postural correction, bilateral ER with OTB, scapular retraction - Subjective Diagnosed with breast cancer 2017- masectomy August 2018- came back October 2020. Late fall last year it all started with a cancer medication that caused blisters- took about a month to get that taken care of then she started having knee pains- went to PCP who referred her to Dr. Mahoney who gave her an injection, so her knee has not bothered her since. Then she was unable to sleep due to pain in bilateral shoulders. So she was only sleeping about 2 hours- woke her up shook it out and took Ibuprofen. Links it all back to the cancer medication. Had carpal tunnel surgery on the left and is planning to have surgery next month for the right. She saw OT who gave her some exercises and that is feeling much better. She started on a new medication a few months ago which has helped. She had a mastectomy on her left. She has pain in her bilateral shoulders- from the mid deltoid along the upper trap. Still having N/T due to carpal tunnel. Describes the pain as dull and achy. Does not have neck pain. No SUNSHINE, blurred vision or dizziness. Worst: 10/10 Agg: nothing in particular- sleep was the worst. Eases: Ibuprofen (not currently taking). Best: 1-2/10. Right hand dominate but does report using her left hand a lot. Has had x-rays but no MRI- they did show some OA but no RTC tear. Has had an injection in her left shoulder last time she was in his office and did fell that it helped. PMHx/Meds: no change since oncology visit 03/22/22. - Objective Posture: FH, RS can correct with verbal and tactile cues but does not maintain. Gait: good arm swing and trunk rotation. Palpation: tender along medial scapula bilateral. ROM: Cervical: WNL, Shoulder: WFL in all planes- reports increased discomfort with descent of flexion in the right>left, Elbow/Wrist/Hand: WFL. Strength: Coating And Embossing Unit Operator: not tested due to carpal tunnel, Elbow: 4+/5, Shoulder: isometric: 4/5 throughout with pain abduction right>left. Scap: fair minus. Sensation: WFL to gross touch bilateral. - Special Tests R Shoulder Empty Can - SS: Positive R Shoulder Belly Press - SupScap: Positive R Shoulder Neer - Impingement: Positive R Shoulder Almaraz Theo - Impingement: Positive L Shoulder Empty Can - SS: Positive L Shoulder Belly Press - SupScap: Positive L Shoulder Neer - Impingement: Positive L Shoulder Almaraz Theo - Impingement: Positive - Balance/Special Test Scores Quick DASH Score: 29.5450 - Goals Goal 1:: Patient will be I with HEP and progression Goal Time Frame: 4-6 Weeks Goal 2:: Patient will demo full AROM of bilateral UE Goal Time Frame: 4-6 Weeks Goal 3:: Patient will maintain proper posture t/o tx session to demo increased scap s/s. Goal Time Frame: 4-6 Weeks Goal 4:: Patient will report 80% improvement. Goal Time Frame: 4-6 Weeks - Rehabilitation Potential Physical Therapy Diagnosis: Patient presents with hypomobility- she has decreased UE and scapular s/s, UE ROM and muscular endurance leading to poor posture and increased pain with ADL's. Rehabilitation Potential: Fair - Anticipated Interventions Patient/Client Instruction: Educate patient on: Benefits of Fitness Program Therapeutic Exercise to Include: Strength training, Endurance training, Coordination, Agility training, Body mechanics, Postural training, Flexibilty training, Passive ROM, Active ROM, Dynamic Lumbar Stabilization, Scapular Strength/Stabilization For the Purpose of:: To improve muscle performance and motor function TENS: No Cryotherapy (ice pack, ice massage): Yes Thermo therapy (hot pack): Yes Ultrasound (thermal/non thermal): No Thank you for the opportunity to evaluate your patient. For Medicare and Medicare HMO plans, please review the plan of care and approve it. It will need to be FAXED BACK to us at [phone] for Medicare purposes. For Medicare only, by signing this I certify the plan of care. Please let me know if there are questions or concerns regarding this plan of care. Physician Signature: Date:
--- NOTE | 2022-05-18 13:37 | HP.PTDCSUM_ITS ---
It has been my pleasure to treat CHELLE CAN referred by Dr. Estrada Mahoney DO, with the diagnosis of Bilateral Shoulder Pain for a total of 8 visit(s). Discharge Date: Please see the following information for a summary of their discharge status. Subjective: Patient reports that she is doing well- she has carpal tunnel surgery tomorrow on the right. She has no pain with ADL's and sleeping is a lot better Shoulder pain Pain Intensity (Out of 10): 4 % Improvement: 80 Objective/Function: Posture: fair throughout Gait: good arm swing and trunk rotation. Palpation: not tender to touch ROM: Cervical: WNL, Shoulder: WFL in all planes- slow to raise above 90 in both flexion and abduction Elbow/Wrist/Hand: WFL. Strength: Property Utilization Officer: not tested due to carpal tunnel, Elbow: 5/5, Shoulder: isometric: 4+/5 throughout no pain. Scap: fair. Sensation: WFL to gross touch bilateral. Goal 1:: Patient will be I with HEP and progression Goal Progress: Goal Met Goal 2:: Patient will demo full AROM of bilateral UE Goal Progress: Goal Met Goal 3:: Patient will maintain proper posture t/o tx session to demo increased scap s/s. Goal Progress: Goal Met Goal 4:: Patient will report 80% improvement. Goal Progress: Goal Met Plan: Discharge to I HEP- encouraged to call if questions If there are questions or concerns regarding this patient's physical therapy, please feel free to call me at [phone]. Thank you for the referral of this patient. Sincerely, Tran Silvestre, YOSHIT Balance/Gait/Functional tests - Balance/Special Test Scores Quick DASH Score: 22.7250
== END 2022-05-18 19:00 | disposition home or self-care (01) ==
LOC: PT 13:00
PROVIDERS: PCP Family Medicine; Referring Provider Student in an Organized Health Care Education/Training Program; Visit Provider Student in an Organized Health Care Education/Training Program
DX: M25.511 Pain in right shoulder (principal); M25.512 Pain in left shoulder
CPT/HCPCS: 97110; 97162; 97164

== ENCOUNTER → 2022-09-10 | Outpatient (CLI) | payer MEDICARE, SELFPAY ==
[2020-11-27 14:35] VITALS: BMI 34.9
[2022-09-12 22:29] LABS: Cancer Antigen 125 6.8 U/mL (0.0-38.1); Carcinoembryonic Antigen 1.5 ng/mL (0.0-4.7)
== END | disposition home or self-care (01) ==
LOC: LAB 12:56
PROVIDERS: PCP Nurse Practitioner Primary Care; Referring Provider Obstetrics & Gynecology; Visit Provider Obstetrics & Gynecology
DX: C50.912 Malignant neoplasm of unspecified site of left female breast (principal)
CPT/HCPCS: 36415; 82378; 86304

== ENCOUNTER → 2022-09-14 | Outpatient (CLI) | payer MEDICARE, SELFPAY ==
[2020-11-27 14:35] VITALS: BMI 34.9
--- NOTE | 2022-09-14 12:58 | US_ITS ---
EXAM: US PELVIS TRANSABDOMINAL AND TRANSVAGINAL, COMPLETE CLINICAL INDICATION: palb2 TECHNIQUE: Transabdominal and transvaginal pelvic ultrasound was performed with grayscale and color Doppler imaging. Transvaginal imaging was used for better evaluation of the endometrium and adnexa. This report was created using [employer] report [employer] technology. COMPARISON: None. FINDINGS: UTERUS/CERVIX: Uterus measures 7.1 cm in length. Uterine echogenicity is heterogeneous associated with ill-defined endometrium. Less than 5 mm cysts noted along superior portion of the cervical canal suggestive of nabothian cysts. RIGHT OVARY: Ovaries are not visualized likely related to atrophic change and overlying bowel gas. LEFT OVARY: See above. FREE FLUID: No adnexal mass or free pelvic fluid. BLADDER: Unremarkable as visualized. Wall is normal thickness for degree of distention. US/Pelvic (Non ) IMPRESSION: Heterogeneous uterine echotexture with ill-defined endometrium which may be related to adenomyosis or diffuse interstitial fibroid involvement of the uterus. Nonvisualization of the ovaries. Recommend gynecological follow-up and MRI of the pelvis if clinically warranted. Electronically Signed: Thom Murphy MD at 8:37 EST ,
== END | disposition home or self-care (01) ==
LOC: US 12:57
PROVIDERS: PCP Nurse Practitioner Primary Care; Referring Provider Obstetrics & Gynecology; Visit Provider Obstetrics & Gynecology
DX: C50.919 Malignant neoplasm of unspecified site of unspecified female breast (principal)
CPT/HCPCS: 76830; 76856

== ENCOUNTER → 2022-10-11 | Outpatient (CLI) | payer MEDICARE, SELFPAY ==
[2020-11-27 14:35] VITALS: BMI 34.9
--- NOTE | 2022-10-11 10:40 | MRI_ITS ---
STUDY: BILATERAL BREAST MR WITHOUT AND WITH CONTRAST REASON FOR EXAM: Female, 72 years old. History of breast cancer status post left mastectomy. 3 prior biopsies of right breast. TECHNIQUE: Multi-sequence multi-echo imaging of both breasts was performed with a dedicated breast coil. T1-weighted and T2-weighted images were performed before the administration of contrast. T1-weighted images were also performed after the intravenous administration of 18 cc of Clariscan contrast. COMPARISON: Left breast ultrasound dated November 2021, bilateral mammogram dated August 16, 2018 and prior breast MRI study dated November 2021. FINDINGS: RIGHT BREAST: Scattered fibroglandular densities with no significant background enhancement. No abnormal enhancing masses or areas of non-mass enhancement in the right breast. LEFT BREAST: Changes of left mastectomy. No abnormal enhancing masses or areas of non-mass enhancement in the remaining soft tissues. No enlarged or abnormal lymph nodes. No abnormality in the visualized regions of the chest or liver. MRI/Breast Bilateral W/O and W IMPRESSION: Changes of left mastectomy. No other abnormality identified. Follow-up yearly mammogram would be appropriate. CATEGORY: BIRADS Category 2: Benign. A letter regarding these results will be sent to the patient by the facility within 30 days. Electronically Signed: Danial Cates, at 13:39 EST ,
[2022-10-11 11:31] LABS: CREATININE FINGERSTICK < 0.9 mg/dL (0.55-1.02); EGFR FINGERSTICK > 60.0000 mL/min (>60)
== END | disposition home or self-care (01) ==
LOC: MRI 10:40
PROVIDERS: PCP Nurse Practitioner Primary Care; Referring Provider Obstetrics & Gynecology; Visit Provider Obstetrics & Gynecology
DX: C50.912 Malignant neoplasm of unspecified site of left female breast (principal)
CPT/HCPCS: 77049; A9575; A4216; C8908

== ENCOUNTER 2022-11-19 05:40 | Day surgery (SDC) | payer MEDICARE, SELFPAY ==
[2020-11-27 14:35] VITALS: BMI 34.9
[2022-11-17 13:30] LABS: Absolute Lymphocyte Count 1.08 X10^3/uL (0.83-4.51); Basophil# 0.03 X10^3/uL; Basophil% 0.5 % (0-1); Eosinophil# 0.13 X10^3/uL; Eosinophils% 2.3 % (0-5); Hematocrit 37.6 % (37-47); Hemoglobin 12.1 g/dL (12.0-15.0); Lymphocyte # 1.08 X10^3/ul (0.83-4.51); Lymphocyte % 19.2 % (19-41); Mean Corp Hgb Conc 32.2 g/dL (32-36); Mean Corpuscular Hgb 30.7 pg (27.0-32.0); Mean Corpuscular Volume 95.4 fL (81-99); Mean Platelet Vol. 10.9 fl (6.2-12.0); Monocyte# 0.42 X10^3/uL; Monocyte% 7.5 % (0-10); NRBC Flagged by Analyzer 0 % (0-5); Neutrophil # 3.95 X10^3/uL (2.7-7.7); Neutrophil % 70.1 % (47-70); Platelet Count 245 K/mm3 (150-450); RBC Distribution Width CV 12.4 % (11.6-14.6); RBC Distribution Width SD 43.4 fl (35.1-43.9); Red Blood Count 3.94 M/mm3 (4.2-5.4); White Blood Count 5.6 K/mm3 (4.4-11.0)
[2022-11-17 13:54] LABS: Anion Gap 6 (5-15); BUN 14 mg/dL (7-18); BUN/Creat Ratio 17.1 RATIO (10-20); Calcium,Total 9.1 mg/dL (8.5-10.1); Chloride 107 mmol/L (98-107); Creatinine, Serum 0.82 mg/dL (0.55-1.02); EST Glomerular Filtration Rate 73 mL/min (>60); Est Glom Filt Rate - Afr Amer 89 mL/min (>60); Glucose 95 mg/dL (74-106); Sodium Level 141 mmol/L (136-145)
[2022-11-19] VITALS (7 sets, daily range): BP systolic 117–162; BP diastolic 53–80; PULSE 68–85; RESP 12–18; TEMP 36.2–36.8; O2SAT 89–100; BMI 35.1
--- NOTE | 2022-11-19 | FALS_PTH ---
PATIENT: CHELLE CAN [place] [facility] [place][id number] AGE/SX: 72/F ROOM: RE11/19/[address]: Dr. 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 Right and left fallopian tubes with benign paratubal cysts and dystrophic microcalcifications. AM:nehal 11/22/2022 MICROSCOPIC DESCRIPTION Slides are reviewed. GROSS DESCRIPTION Received in fixative is one container labeled with the patient's name and designated bilateral tubes and ovaries. The specimen consists of bilateral fallopian tubes and ovaries. They are not identified as right or left. One of the fallopian tubes measure 4.5 cm in length and 0.5 cm in diameter. The fimbrial end is identified. Sections of fallopian tube reveal unremarkable cut surfaces. The adjacent ovary measures 2.2 x 1.5 x 1.0 cm. A rosario-white solid nodule is noted on the surface measuring 0.5 cm in greatest dimension. Sections of the rest of the ovary reveal unremarkable cut surfaces. The second fallopian tube is similar appearance to the first one and measures 4.5 cm in length and 0.5 cm in diameter. It is similar appearance to the first one. The second adjacent ovary measures 2.5 x 2.0 x 1.2 cm. Sections reveal unremarkable cut surfaces. Cooler Servicer sections are submitted in six cassettes as follows: 1-3 - one fallopian tube and adjacent ovary (1 - one fallopian tube, 2 - ovary including rosario, solid nodule on the surface of ovary, 3 - additional section of ovary), 4-6 - second fallopian tube and ovary (4 - fallopian tube, 5 & 6 - second ovary). / SJ:nehal 4.02/2023 TC:5 CPT: 05206 x2
--- NOTE | 2022-11-19 | FLU_PTH ---
PATIENT: CHELLE CAN LOC: [facility] [place] U#:[id number] AGE/SX: 72/F ROOM: RE11/19/[address]: Dr. Akiko Godfrey MD : 1950 BED: DIS: 11/19/2022 SPEC #: [id number] RECD: 11/19/22 09:18 STATUS: JAMIE RENéstor #: [id number] MANNY: 11/19/22 00:[address]: Akiko Godfrey DEPT: CYTOLOGY RECD BY: Danny Salas ENTERED: 11/19/22 09:18 SP TYPE: Fluid OTHR DR: Eb Galo, COMMUNITY OUTREACH COORDINATOR-C Tissues: Pelvis, NOS Procedures: Special Stain Group II Surgery Specimen Level IV Cytospin Fluid HEADER OPERATION: Laparoscopic salpingo-oophorectomy, cytology washings PRE-OP DIAGNOSIS: PALB2-related breast cancer TISSUE SUBMITTED: Pelvic washings DIAGNOSIS CYTOLOGY Pelvic washing fluid (cytospin and cell block): Negative for malignant cells. See comment. FELTON:nehal 11/22/2022 COMMENT Please make reference to corresponding surgical specimen [id number]. Correlation with clinical findings and appropriate follow up are necessary. Please make reference to previous specimens ([id number]) left breast, mastectomy with diagnosis of ?invasive ductal carcinoma? and ([id number]) left chest wall mass, wire localization excisional biopsy with diagnosis of ?metastatic invasive ductal carcinoma.? CYTOLOGY STUDY Slides are reviewed. CYTOLOGY GROSS Received is 5 ml of light pink fluid labeled with the patient's name and and designated per the requisition as pelvic washings. Submitted for cytology preparation including cell block. / nehal 11/19/2022 TC:5 CPT: 04004, 37803
[2022-11-19] MEDS: Lactated Ringers 1,000 ML 15 ML IV ×2 (06:15→09:55)
[2022-11-19] MEDS: Cefazolin 2 GM in 0.9% Normal Saline 100 ML IV (07:28)
--- NOTE | 2022-11-19 07:31 | PCM.HP.BLA ---
History and Physical [facility] [address] [place] [address] OFFICE VISIT Date of Service:? 10/28/22 MR#: [id number] Acct: [id number] Name:CHELLE TAVARES Rep #: [id number] : 1950 ? ? Provider: Dr. Akiko Godfrey MD Age/Sex:? 72/F ? ? [place] [facility] [place]: Signed Intake Vital Signs ? 09/10/2311:11 10/28/2310:04 10/28/2310:05 Height 5 ft 3 in 5 ft 3 in 5 ft 3 in Weight: ? 202 lb 6 oz ? BMI ? 35.8 ? BP ? 141/82 H ? Intake Visit Reasons:?BSO Is patient in pain?: No Allergies nitrofurantoin [From Macrobid] Allergy (Mild, Verified 10/28/22 11:05) othernaproxen Allergy (Verified 10/28/22 11:05) Other Medications omeprazole 40 mg capsule,delayed release 40 mg PO DAILY REFLUX 09/05/18 [History Confirmed 10/28/22] cholecalciferol (vitamin D3) 10 mcg (400 unit) capsule 10 mcg PO DAILY 12/01/21 [History Confirmed 10/28/22] exemestane 25 mg tablet (Aromasin) 25 mg PO DAILY #30 tabs 01/13/22 [Rx Confirmed 10/28/22] calcium carbonate 500 mg calcium (1,250 mg) chewable tablet (Calcium 500) 500 mg PO DAILY 02/11/22 [History Confirmed 10/28/22] tumeric 100 mg-angelina 150 mg-olive 50 mg-oreg 150 mg-caprylate capsule cap PO 02/11/22 [History Confirmed 10/28/22] Post menopausal: Yes Patient : No : No [facility] History?(Updated 10/28/22 @ 11:[address] Akiko Godfrey MD) Breast cancer (~08/2018) delivery delivered Elevated serum globulin level GERD (gastroesophageal reflux disease) IBS (irritable bowel syndrome) Metastatic breast cancer Surgical History?(Updated 10/28/22 @ 11:[address] Akiko Godfrey MD) History of carpal tunnel surgery History of conization of cervix History of left mastectomy History of right breast biopsy Hx laparoscopic cholecystectomy Tubal ligation status Family History? Mother Breast cancerFather Colon cancerAunt Breast cancer ?? ? 5 with breast cancer Social History? Smoking Status:? Former smoker alcohol intake:? never substance use type:? does not use caffeine:? Yes what type of physical activity do you participate in:? walking seatbelt use:? always do you feel safe at home:? Yes additional social history:? Aguilar- both are retired HPI BSO Details: CHELLE CAN is a 72 year old who presents for Female Reproductive History Menopausal Symptoms: No hot flashes, No night sweats, No difficulty concentrating and No change in libido History ? ? ? 3 ? Elective abortions ? Hx Para ? ? ? 3 ? Spontaneous abortions ? Hx # Term Pregnancies ? Ectopic pregnancies ? Hx # Pregnancies ? Multiple births ? # of living children ? ROS Const Constitutional: Reports as per HPI; Denies fatigue, increased appetite, poor appetite, night sweats, weight gain or weight loss Cardio Card: Denies chest pain Resp Resp: Denies cough or dyspnea GI GI: Reports as per HPI; Denies abdominal pain, bloating, constipation, nausea or vomiting : Reports as per HPI and other; Denies difficulty voiding, dysuria, hematuria, hot flashes, nipple discharge, pelvic pain, prolapse symptoms, urinary frequency, urinary incontinence, urinary urgency, vaginal discharge, vaginal dryness, vaginal odor or vaginal pruritus Skin Skin/Breast: Denies changing lesions, breast mass, breast pain, breast skin changes or nipple discharge Psych Psych: Denies anxiety, change in libido, depression or difficulty concentrating Exam Const General: cooperative, healthy appearing, comfortable, no acute distress, well developed and well groomed [facility] Head: normal to inspection and normocephalic Ears: hearing grossly normal bilaterally and external ears normal Nose: external nose normal Face and sinus: normal facial exam Neck Neck: normal visual inspection, full ROM and no lymphadenopathy Thyroid: thyroid normal Resp Effort & Inspection: normal respiratory effort Auscultation: clear to auscultation bilaterally Cardio Rate: regular rate Rhythm: regular rhythm Heart Sounds: S1 normal and S2 normal GI Inspection: normal to inspection and non-distended Palpation: soft, no hepatosplenomegaly and no guarding General: bladder normal to palpation External Female Exam: normal external appearance, normal appearance of the urethra and no lesions Urethra: normal appearance of the urethra and normal palpation Speculum Exam - Vagina: normal appearance of the vagina and normal vaginal discharge Speculum Exam - Cervix: normal appearance of the cervix, no cervical discharge, no lesions and nontender Bimanual Exam- Vagina & Uterus: normal bimanual exam, uterine size normal, bladder normal to palpation, No tender, uterine mobility normal, consistency normal, non-tender and no cervical motion tenderness Bimanual Exam- Adnexa, other: normal adnexae, no masses and non-tender Skin General: no rashes or lesions noted Neuro General: patient alert, moves all extremities and no focal motor deficits Extrem General: normal to inspection and no pedal edema Psych Appearance: grossly normal Mental Status: mental status grossly normal Affect: normal affect Speech and Movement: speech and movement normal Attitude: cooperative Coding Level of Care Code No Charge Diagnoses 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 no family history of ovarian or pancreatic cancer.? us and [id number] Plan After discussing the patient's diagnosis and treatment plan options, patient wishes to proceed with surgical management.? I have discussed with the patient the risks, benefits, and alternatives of the procedure which include but are not limited to risks of anesthesia, bleeding, infection, possible damage to bowel, bladder, or surrounding vasculature which could lead to additional surgery to evaluate any complications.? Patient agrees to procedure and wishes to proceed.? ACOG/uptodate references given for additional information regarding procedure.? UPDATE- I have seen the patient and performed any clinically relevant updates to the history and physical exam. Akiko Godfrey MD
--- NOTE | 2022-11-19 07:31 | PCM.OPRPT ---
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: (2) Recurrent cancer of left breast: (3) S/P BSO (bilateral salpingo-oophorectomy): Report of Operation Date of Procedure: 11/19/22 Pre-Operative Diagnosis: see problem list Post-Operative Diagnosis: same Surgery/Procedure Performed:: laparoscopic bilateral salpingoo-ophorectomy pelvic washings Surgeon: Akiko Godfrey imcu specialist: Valentine De La Torre Type of Anesthesia: General and Local Special Medications: none Specimen's removed: tubes and ovaries Drains: none Estimated Blood Loss (mL): 50 Fluids Replaced: crystalloid Description of Procedure: Patient was taken in the operating room and was placed under general anesthesia was prepped and draped in normal sterile fashion in the dorsal lithotomy position. Bladder was drained of clear urine and SCDs were on preoperatively. Uterus was sounded and a uterine manipulator was placed after dilating. Attention was then paid to the abdominal portion of the procedure and the umbilicus was elevated with towel clamps and injected with Marcaine and after a 5 mm incision was made and the Veress needle was entered into the abdomen confirmed to be intra-abdominal with a low opening pressure of less than 5 mmHg. Abdomen was insufflated with CO2 gas and a 5 mm optical trocar was placed under direct visualization. A right and left lower quadrant 5 mm ports were placed under direct visualization. pelvic washings taken. Uterus was well visualized and bilateral fallopian tubes and ovaries were identified and the bilateral infundibulopelvic ligament were transected across using the LigaSure device followed by transecting across the mesosalpinx to the attachment to the uterine corpus bilaterally the tubes and ovaries were removed without complication. Excellent hemostasis was noted. Specimens were removed through the enlarged 12 mm left lower quadrant port site through a bag without any intra-abdominal spillage of contents. The fascial incision was closed using the Sadiq Bejarano and an 0 Vicryl. Liver and upper abdomen were visualized notably within normal limits and no other gross abnormalities were seen in the abdomen. All instruments removed from the abdomen after gas was desufflated. Port sites were closed with 3-0 Monocryl Steri's and op sites were applied. All instruments removed from the vagina and patient was awoken and taken recovery in stable condition. Grafts/Implants Used: none Complications none Admit VTE Documentation VTE Present on Admission: No VTE Mechan Device Prophylaxis: SCD's Multi Select Codes Urinary/Genital Urinary/Genital CPT Codes: 94109 Laproscopic BS/O
--- NOTE | 2022-11-19 07:35 | DCINST_ITS ---
Discharge Instructions Diet Discharge Diet: No restrictions Activity Discharge Activity: Return to Normal Activity, May Drive (when pain free) and May Shower May resume sexual activity in: 1 week Weight Bearing Status: Full weight bearing Lifting Restrictions: 30 lbs for 2 weeks Dressing / Incision Call your doctor if your incision/area has: Continuous Slow Oozing, Sudden Increased Bleeding, Increased Pain/ Swelling, Increased Redness and Foul Smelling Discharge Call your doctor if you observe: Fever of 101 or Higher, Using more than 1 pad per hour, Shortness of breath, Chest pain and Uncontrolled pain Suture Line Care: Avoid Pulling/Pushing and Avoid Pinching/Bending Remove Dressing in: 1 week (if present) Cleanse incision/area with: Soap & Water and Keep Dressing Clean & Dry Follow Up Care Please Follow Up With: Akiko Godfrey MD When: Call to make an appointment with your doctor for a postop visit in 2 weeks Test Results: Test results from this visit will be discussed in further detail at your follow- up appointment, if applicable. Discharge Plan Admission Attending Provider: Akiko Godfrey Primary Care Provider: Eb Galo NP Discharge Orders/Prescriptions Prescriptions: New oxycodone-acetaminophen [Percocet] 5-325 mg tablet 1 tab PO Q6H PRN (Reason: pain) 7 Days Qty: 20 0RF Continued cholecalciferol (vitamin D3) 10 mcg (400 unit) capsule 10 mcg PO DAILY calcium carbonate [Calcium 500] 500 mg calcium (1,250 mg) tablet,chewable 500 mg PO DAILY omeprazole 40 MG capsule,delayed release(DR/EC) 40 mg PO DAILY ascorbic acid (vitamin C) [Vitamin C] 250 mg Tablet 250 mg PO DAILY d-mannose 500 mg Capsule 500 mg PO DAILY exemestane [Aromasin] 25 mg tablet 25 mg PO DAILY Rx Instructions: must administer after a meal Referrals / Follow Up: Eb Galo NP, POCKETED SPRING MACHINE OPERATOR-C [Primary Care Provider] - Disposition Disposition (needs filled in before D/C Order can be placed): Home, Self Care
[2022-11-19] MEDS: Bupivacaine 0.25% 30 ML Vial (08:05)
[2022-11-19] MEDS: HYDROcodone Bitartrate/Apap 5/325 Tablet PO (10:28)
[2022-11-24 06:02] LABS: Cytology, Body Fluid / CSF SEE PATHOLOGY REPORT
== END 2022-11-19 11:07 | disposition home or self-care (01) ==
LOC: SDC 05:40 → AC 05:41
PROVIDERS: PCP Nurse Practitioner Primary Care; Referring Provider Obstetrics & Gynecology; Visit Provider Obstetrics & Gynecology
PROC: (CPT 58661; principal; 2022-11-19 07:15)
DX: C50.912 Malignant neoplasm of unspecified site of left female breast (principal); Z87.891 Personal history of nicotine dependence; Z90.721 Acquired absence of ovaries, unilateral
CPT/HCPCS: 58661; 00840; 36415; 80048; 85025; 86850; 86900; 86901; 88108; 88302; 88305; 88313; 93005; J7120; J2405

== ENCOUNTER → 2022-12-28 | Outpatient (CLI) | payer MEDICARE, SELFPAY ==
[2020-11-27 14:35] VITALS: BMI 34.9
--- NOTE | 2022-12-28 13:34 | CT_ITS ---
INDICATION: Left supraclavicular swelling, history of breast cancer. EXAMINATION: CT Chest W/ Contrast Injection TECHNIQUE: Helically acquired images were obtained of the chest following IV contrast. A radiation dose optimization technique was used for this scan. IV Contrast dosage and agent: 75 mL Isovue-370. COMPARISON: CT neck exams December 28, 2022. CT chest September 05, 2020. CT treatment planning exam (Chest) December 04, 2020. PET/CT September 23, 2020. FINDINGS: LUNGS, PLEURA AND LARGE AIRWAYS: No masses, consolidation, or edema. No pleural effusion or thickening. No pneumothorax. CHEST WALL: Left mastectomy. THYROID: No thyroid lesions. HEART AND PERICARDIUM: Heart size is normal. No pericardial effusion. No significant coronary artery calcification. VESSELS: Thoracic aorta is not dilated. No aortic dissection. Great vessels are widely patent. There is no significant aortic calcification. No central pulmonary embolism although this study was not performed with the pulmonary embolism protocol. MEDIASTINUM AND MIGEL: No mediastinal or hilar adenopathy. Scattered tracheobronchial calcifications. The esophagus is unremarkable. No hiatal hernia. No axillary adenopathy. No supraclavicular adenopathy or abnormal fluid collection. UPPER ABDOMEN: No acute pathology. Cholecystectomy. BONES: No suspicious lytic or blastic abnormality. Degenerative changes most significant involving the lower cervical spine. No acute osseous injury. CT/Chest WITH Contrast IMPRESSION: No acute thoracic findings. Electronically Signed: Ash Monsalve MD at 17:17 EDT ,
--- NOTE | 2022-12-28 13:34 | CT_ITS ---
INDICATION: SUPRACLAVICULAR SWELLING. HISTORY OF BREAST CARCINOMA. EXAMINATION: CT Soft Tissue Neck W/ Contrast Injection TECHNIQUE: Helically acquired images were obtained of the neck following IV contrast. A radiation dose optimization technique was used for this scan. IV Contrast dosage and agent: 75 mL Isovue-370 RADIATION DOSAGE (If Supplied By Facility): CTDIvol = ( 13.61 ) mGy, DLP = ( 999.17 ) mGycm COMPARISON: CT chest December 28, 2022. PET/CT imaging September 23, 2020. FINDINGS: NASOPHARYNX: Unremarkable. SUPRAHYOID NECK: Unremarkable oropharynx, oral cavity, parapharyngeal fat spaces, and retropharyngeal space. Normal epiglottis. INFRAHYOID NECK: Unremarkable larynx, hypopharynx, and supraglottis. THYROID: No focal lesions. SALIVARY GLANDS: No interstitial edema or mass. LYMPH NODES: No cervical or supraclavicular lymphadenopathy. No necrotic lymph nodes. VASCULAR STRUCTURES: Mild carotid arterial calcifications. Mild medial deviation of the common carotid arteries. Normal appearance of the aortic arch and great vessels. VISUALIZED PORTIONS OF THE ORBITS, PARANASAL SINUSES, MASTOID AIR CELLS AND SKULL BASE: Mastoid air cells and paranasal sinuses are clear. No air-fluid levels. Orbits are unremarkable. Skull base is intact. Partially empty sella appearance. BONES: Cervical spondylosis changes most significant at the C5-6 and C6-7 levels. Central protrusion-disc complex causes mild ventral cord flattening at C6-7. THORACIC INLET: Small scarring in the anterior left upper lobe, likely treatment related change. CT/Soft Tissue Neck WITH Contrast IMPRESSION: No mass or adenopathy. Electronically Signed: Ash Monsalve MD at 17:24 EDT ,
== END | disposition home or self-care (01) ==
LOC: CT 13:33
PROVIDERS: PCP Nurse Practitioner Primary Care; Referring Provider Internal Medicine Medical Oncology; Visit Provider Internal Medicine Medical Oncology
DX: R22.2 Localized swelling, mass and lump, trunk (principal); I89.0 Lymphedema, not elsewhere classified; Z85.3 Personal history of malignant neoplasm of breast
CPT/HCPCS: 70491; 71260; Q9967

== ENCOUNTER → 2023-09-22 | Outpatient (CLI) | payer MEDICARE, SELFPAY ==
[2020-11-27 14:35] VITALS: BMI 34.9
--- NOTE | 2023-09-22 | IMM_PTH ---
PATHOLOGY RESULTS PATIENT: CHELLE CAN LOC: JENNI U#:[id number] AGE/SX: 73/F ROOM: RE09/22/[address]: Dr. Jono Jaffe MD : 1950 BED: DIS: 09/22/2023 SPEC #: [id number] RECD: 09/23/23 12:52 STATUS: JAMIE REQ #: [id number] MANNY: 09/22/23 00:[address]: Jono Jaffe DEPT: IMMUNOHISTOCHEMISTRY RECD BY: Mica Prakash ENTERED: 09/23/23 12:53 SP TYPE: IMMUNO OTHR DR: Eb Galo, BRIM BUSTER-C Tissues: Right breast, NOS Procedures: CALPONIN-1 (add) CK5-6 (add) CK8 (add) E-CAD (add) HER2 YOLA (add) KI-67 (add) P53 (add) MN (add) P40 (add) MOC-31 (add) ER (initial) PHYSICIAN & INSTITUTION [address] [address] SPECIMEN INFORMATION: Tissue Source: Right breast Clinical Info: Abnormal mammogram right breast Specimen Number: [id number] CPT code: 84942, 46727 x7, 99960 x3 METHODOLOGY: Deparaffinized sections of prefer/formalin-fixed tissue or PAP/DQ stained slides are incubated with monoclonal/polyclonal antibodies/oligonucleotide probes. Localization is made via biotin free immunoperoxidase method. Appropriate controls are performed and reacted as expected. Results on target cell population are indicated in the following table: RESULTS: ANTIBODY / CLONE RESULT P53 (DO-7) negative, null pattern Ki-67 (30-9) positive, 48% CK8 (95ymzgV82) positive CK5-6 (D5 & 1684) positive, focal Calponin-1 (ZD096S) negative P40 (BC28) negative E-Cad (ECH-6) positive MOC-31 (4561) positive MORPHOMETRIC ANALYSIS ER (clone 6F11) 0% MN (clone 16/1E2) 0% Her-2Neu (clone CB11) 0 The prognostic test for HER2 is performed on formalin-fixed paraffin embedded tissue. A 3+ (positive) staining pattern is defined as intense, homogeneous, complete, circumferential membranous staining in >10% of contiguous tumor cells. A similar weak (2+) staining pattern is interpreted as equivocal. MAHESH follow-up testing is recommended for all equivocal cases. Positivity/negativity for ER/MN is reported if > or < 1% of the tumor cells are immuno- reactive, respectively. The ASCO/CAP criteria is used for scoring. Reference: Journal of Clinical Oncology, 2013; 31:0101-4721 & 2010; 16:7540-6037. Ischemic time: Less than one hour. Duration of fixation: 9.5 Hrs; Sample Adequate: Yes. These assays have not been validated on decalcified tissues. Results should be interpreted with caution given the likelihood of false negativity on decalcified specimens or fixation greater than 72 hours. Alternative testing methods (FISH/dualISH for Her2; gene expression for ER) are recommended, if applicable. Please notify the laboratory if additional testing is required. These tests were developed and their performance characteristics determined by [facility]. They may not have been cleared or approved by the U.S. Food and Drug Administration. The FDA has determined that such clearance or approval is not necessary. The above immunohistochemical/dualISH markers are ordered and reviewed by the Pathologist. INTERPRETATION: Right breast, ultrasound-guided core biopsy: Invasive ductal carcinoma, nuclear grade 3/3. Negative for estrogen receptors (unfavorable prognostic indicator). Negative for progesterone receptors (unfavorable prognostic indicator). Negative for overexpression of RJY1dxi. AM:nehal 09/26/2023
--- NOTE | 2023-09-22 10:17 | BRBX_PTH ---
PATHOLOGY RESULTS PATIENT: CHELLE CAN LOC: JENNI U#:[id number] AGE/SX: 73/F ROOM: RE09/22/[address]: Dr. Jono Jaffe MD : 1950 BED: DIS: 09/22/2023 SPEC #: [id number] RECD: 09/22/23 11:40 STATUS: JAMIE SARGENT #: [id number] MANNY: 09/22/23 10:[address]: Jono Jaffe DEPT: SURGICAL PATHOLOGY RECD BY: Tiana Banda ENTERED: 09/22/23 11:41 SP TYPE: BREAST BX OTHR DR: Eb Galo, BIGG Tissues: Right breast, NOS Procedures: Surgery Specimen Level IV HEADER OPERATION: Ultrasound-guided needle core biopsy, right breast mass PRE-OP DIAGNOSIS: Abnormal mammogram right breast TISSUE SUBMITTED: Right breast tissue MICROSCOPIC DIAGNOSIS Right breast, core biopsy: Invasive ductal carcinoma with basal-like features and with the following characteristics: Nuclear grade - 3/3 Maximal length - 4.2 millimeters See comment. AM:nehal 09/23/2023 COMMENT ER/VT/Kio2vws studies are being performed on sections of tumor and the results from this study will be reported separately ([id number]). Immunohistochemistry ([id number]) supports the above diagnosis. Case has been reviewed in consultation with Dr. Alfonso who concurs with the above diagnosis. IDC:SJ MICROSCOPIC DESCRIPTION Slides are reviewed. GROSS DESCRIPTION Received in fixative is one container labeled with the patient's name and designated right breast biopsy. The specimen consists of multiple irregular and elongated fragments of rosario tissue that in aggregate measure 2.5 x 0.8 x 0.1 cm. The specimen is totally submitted in one cassette. / AM:nehal 09/22/2023 TC:0 Ischemic Time: 1 minute Fixation Time: 9.5 hours CPT: 72227
== END | disposition home or self-care (01) ==
LOC: LABSPEC 11:17
PROVIDERS: PCP Nurse Practitioner Primary Care; Referring Provider Surgery; Visit Provider Surgery
DX: C50.911 Malignant neoplasm of unspecified site of right female breast (principal); R92.8 Other abnormal and inconclusive findings on diagnostic imaging of breast
CPT/HCPCS: 81002; 88305; 88341; 88342

== ENCOUNTER 2023-10-12 12:03 | Observation (INO) | payer MEDICARE, SELFPAY ==
[2020-11-27 14:35] VITALS: BMI 34.9
[2023-10-12] VITALS (12 sets, daily range): BP systolic 143–187; BP diastolic 65–89; PULSE 77–108; RESP 16–20; TEMP 36.3–37.2; O2SAT 93–100; BMI 36.7
--- NOTE | 2023-10-12 | IMM_PTH ---
PATHOLOGY RESULTS PATIENT: CHELLE CAN LOC: MS3 U#:[id number] AGE/SX: 73/F ROOM: [facility] [place] RE10/12/[address]: Dr. Jono Jaffe MD : 1950 BED: 1 DIS: 10/13/2023 SPEC #: [id number] RECD: 10/17/23 12:29 STATUS: JAMIE ARIE #: [id number] MANNY: 10/12/23 00:[address]: Jono Jaffe DEPT: IMMUNOHISTOCHEMISTRY RECD BY: Mica Prakash ENTERED: 10/17/23 12:34 SP TYPE: IMMUNO OTHR DR: BIGG [place] Tissues: Axillary lymph node, NOS Axillary lymph node, NOS Procedures: CK7 (add) Pankeratin (initial) Pankeratin (add) PHYSICIAN & INSTITUTION [place] [address] SPECIMEN INFORMATION: Tissue Source: A - Right sentinel lymph nodes, B - Right sentinel lymph nodes #2 Clinical Info: Right breast cancer Specimen Number: [id number] A1-A4, B1-B3 CPT code: 19457 x2, 40153 x12 METHODOLOGY: Deparaffinized sections of prefer/formalin-fixed tissue or PAP/DQ stained slides are incubated with monoclonal/polyclonal antibodies/oligonucleotide probes. Localization is made via biotin free immunoperoxidase method. Appropriate controls are performed and reacted as expected. Results on target cell population are indicated in the following table: RESULTS: ANTIBODY / CLONE RESULT Block A1 AE1-3 (AE1/AE3/PCK26) negative CK7 (OV-TL12/30) negative Block A2 AE1-3 (AE1/AE3/PCK26) negative CK7 (OV-TL12/30) negative Block A3 AE1-3 (AE1/AE3/PCK26) negative CK7 (OV-TL12/30) negative Block A4 AE1-3 (AE1/AE3/PCK26) negative CK7 (OV-TL12/30) negative Block B1 AE1-3 (AE1/AE3/PCK26) negative CK7 (OV-TL12/30) negative Block B2 AE1-3 (AE1/AE3/PCK26) negative CK7 (OV-TL12/30) negative Block B3 AE1-3 (AE1/AE3/PCK26) negative CK7 (OV-TL12/30) negative These tests were developed and their performance characteristics determined by [facility]. They may not have been cleared or approved by the U.S. Food and Drug Administration. The FDA has determined that such clearance or approval is not necessary. The above immunohistochemical/dualISH markers are ordered and reviewed by the Pathologist. INTERPRETATION: A. Right sentinel lymph nodes, biopsy: Three out of three lymph nodes, negative for metastatic carcinoma. B. Right sentinel lymph nodes #2, biopsy: Two out of two lymph nodes, negative for metastatic carcinoma. SJ:nehal 10/18/2023
--- NOTE | 2023-10-12 | AXNB_PTH ---
PATHOLOGY RESULTS PATIENT: CHELLE CAN LOC: MS3 U#:[id number] AGE/SX: 73/F ROOM: [facility] [place] RE10/12/[address]: Dr. Jono Jaffe MD : 1950 BED: 1 DIS: 10/13/2023 SPEC #: [id number] RECD: 10/12/23 11:02 STATUS: JAMIE ARIE #: [id number] MANNY: 10/12/23 00:[address]: Jono Jaffe DEPT: SURGICAL PATHOLOGY RECD BY: Mica Prakash ENTERED: 10/12/23 11:58 SP TYPE: AX NODE BX OTHR DR: Eb Galo, AIR CONDITIONING MECHANIC-C Tissues: Axillary lymph node, NOS Axillary lymph node, NOS Right breast, NOS Skin of breast, NOS Procedures: Frozen Section (charge) Frozen Section Add'l ([facility]) Surgery Specimen Level IV Surgery Specimen Level V HEADER OPERATION: Right total mastectomy with blue dye and radiotracer, sentinel lymph node biopsy PRE-OP DIAGNOSIS: Right breast cancer TISSUE SUBMITTED: A - Right sentinel lymph node, frozen section, B - Right sentinel lymph node #2, frozen section, C - Right breast, short stitch - superior, long stitch - lateral, D - Right breast, superior extra skin FROZEN SECTION DIAGNOSIS A. Right sentinel lymph nodes, biopsy: Three out of three lymph nodes, negative for metastatic carcinoma. B. Right sentinel lymph nodes #2, biopsy: Two out of two lymph nodes, negative for metastatic carcinoma. FELTON:nehal 10/12/2023 MICROSCOPIC DIAGNOSIS A. Right sentinel lymph nodes, biopsy: Three out of three lymph nodes, negative for metastatic carcinoma. See comment. B. Right sentinel lymph nodes #2, biopsy: Two out of two lymph nodes, negative for metastatic carcinoma. See comment. C. Right breast, mastectomy: Invasive ductal carcinoma. See cancer summary in the comment section. D. Right breast, superior extra skin: Skin with underlying tissue, no pathologic diagnosis. FELTON:nehal 10/17/2023 COMMENT A & B. The lymph nodes are negative for metastatic carcinoma on multiple H & E levels and immuno-histochemical stains for cytokeratins ([id number]). C. INVASIVE DUCTAL CARCINOMA SUMMARY Procedure - total mastectomy Specimen laterality - right Tumor site - lower outer quadrant Tumor size - 1.8 x 1.5 x 1.4 cm Histologic type - Invasive ductal carcinoma, not otherwise specified. Histologic grade (Dak[place] grade): Glandular/tubular differentiation score - 3 Nuclear pleomorphism score - 3 Mitotic count score - 3 Overall grade - grade 3 (score of 9) Tumor focality - single focus of invasive carcinoma. Ductal carcinoma in situ - present Negative for extensive intraductal component (EIC). Size (extent) of DCIS - DCIS comprise about 10% of the total tumor volume. Number of blocks with DCIS - 4 Number of blocks examined - 12 Architectural pattern - solid Nuclear grade - grade 3 (high) Necrosis - not identified Lobular carcinoma in situ - not identified Tumor extension: Skin - skin is present and uninvolved. Nipple - Ductal carcinoma in situ does not involve the nipple epidermis. Skeletal muscle - Skeletal muscle is present and free of carcinoma. Margins: Invasive carcinoma is 0.6 cm away from the closest inferior margin. Ductal carcinoma in situ is 0.3 cm away from the closest inferior margin. Regional lymph nodes: Total number of lymph nodes examined - 5 Number of sentinel lymph nodes examined - 5 Number of lymph nodes with macrometastases, micrometastases or isolated tumor cells - 0 Treatment effect - no known presurgical therapy. Lymphvascular invasion - not identified Dermal lymphvascular invasion - not identified Distant metastasis - not applicable Additional Pathologic Findings - fibrocystic changes and intraductal hyperplasia with focal atypia. Ancillary Studies: Previously performed on same tumor ([id number] / [id number]) ER: negative (0%) DC: negative (0%) Obp8fun: negative (0) Microcalcifications - not identified Clinical History - Please make reference to previous specimen ([id number]) right breast, core biopsy with diagnosis of invasive ductal carcinoma with basal-like features. Radiologic Findings - Abnormal mammogram PATHOLOGIC STAGE: pT1c pN0(sn) pMx The above summary is in compliance with [employer] (CAP) Cancer Protocols Checklist and [place] [employer] Committee on Cancer (AJCC), Staging Manual, 8th Ed. Case has been reviewed in consultation with Dr. Cornejo who concurs with the above diagnosis. IDC:AM MICROSCOPIC DESCRIPTION Slides are reviewed. GROSS DESCRIPTION A - Received fresh for frozen section diagnosis labeled with the patient's name is a specimen designated right sentinel lymph nodes. The specimen consists of multiple irregular fragments of yellow adipose tissue measuring in aggregate 5.5 x 4.0 x 1.5 cm. Three nodules consistent with lymph nodes are identified measuring 1.0 to 3.5 cm in greatest dimension. The lymph nodes are submitted in entirety for frozen section diagnosis in four cassettes as follows: 1 - one lymph node, 2 - one bisected lymph node, 3 & 4 - one serially sectioned lymph node. / FELTON:nehal 10/12/2023 B - Received fresh for frozen section diagnosis labeled with the patient's name is a specimen designated right sentinel lymph nodes #2. The specimen consists of a piece of yellow adipose tissue measuring 4.0 x 3.0 x 1.2 cm. Two nodules consistent with lymph nodes are identified measuring 1.5 to 2.0 cm in greatest dimension. The lymph nodes are submitted in entirety for frozen section diagnosis in three cassettes as follows: 1 & 2 - one serially sectioned lymph node, 3 - one serially sectioned lymph node. / FELTON:nehal 10/12/2023 C - Received in fixative is one container labeled with the patient's name and designated right breast. The specimen consists of a mastectomy specimen consisting of breast tissue with overlying skin ellipse. The breast tissue measures 22.0 x 17.0 x 6.0 cm. The overlying skin ellipse measures 19.0 x 8.5 cm. The nipple measures 1.8 cm in greatest dimension. No skin lesion is identified. Blue dye discoloration is noted on the skin surface. The specimen is inked as follows: posterior - black, superior - blue, inferior - green, medial - red and lateral - orange. Further dictation will follow after fixation. / FELTON:nehal 10/12/2023 Serial sections reveal a rosario, indurated tumor mass in the lower outer quadrant measuring 1.8 x 1.5 x 1.4 cm. This tumor is close to the inferior margin of the specimen 0.6 cm away from the inferior margin. Sections of the rest of the specimen reveal rosario-yellow adipose cut surfaces with scant fibrous area. Crinkling Machine Operator sections are submitted in 12 cassettes as follows: 1 - nipple, entirely submitted, 2??perpendicular medial and lateral margins and skin, 3 - perpendicular superior margin and posterior margin, 4-7 - tumor with closest inferior margin, 8-12 - product support sales representative sections adjacent to and away from the tumor. Sections are submitted after additional fixation. / FELTON:nehal 10/13/2023 D - Received in fixative is one container labeled with the patient's name and designated extra skin right breast. The specimen consists of a piece of rosario-white skin measuring 13.0 x 3.0 and up to 2.0 cm in thickness. No skin lesion is identified. Sections do not reveal any mass lesion. Crinkling Machine Operator sections are submitted in two cassettes. / FELTON:nehal 10/13/2023 TC:0 CPT: 11562 x3, 42921, 97094 x2, 59221 x3
--- OUTSIDE RECORDS SUMMARY | 2023-10-12 07:00 | XMS RPT_ITS | CCD ---
Author Name Unknown Address [address] [place] [address] Organization [facility] Care Team Providers Care Medical Clerical Assistant Name Role Phone Dhiraj Lemos Primary Care Provider 1( 30) SHUKRI CALLAWAY, DHIRAJ Rajput Primary Care Physician [phone] LORENA CUBAN-CUSTODIAL OPERATIONS MANAGER, REINALDO Primary Care Physician ([phone]) LORENA ROBERTS, REINALDO Primary Care Physician ([phone]) LORENA APONTE-CUSTODIAL OPERATIONS MANAGER, REINALDO Primary Care Physician ([phone]) HAMIDATES SISAL OPERATOR-CUSTODIAL OPERATIONS MANAGER, REINALDO Attending Unavailabl e BALTES SISAL OPERATOR-CUSTODIAL OPERATIONS MANAGER, REINALDO Primary Care Unavailabl e BALTES SISAL OPERATOR-CUSTODIAL OPERATIONS MANAGER, REINALDO Attending Unavailabl e BALTES SISAL OPERATOR-CUSTODIAL OPERATIONS MANAGER, REINALDO Primary Care Unavailabl e BALTES SISAL OPERATOR-CUSTODIAL OPERATIONS MANAGER, REINALDO Attending Unavailabl e BALTES SISAL OPERATOR-CUSTODIAL OPERATIONS MANAGER, REINALDO Primary Care Unavailabl e Allergies Allergy Classification Reported Allergen(s) Allergy Type Date of Onset Reaction(s) Facility (1 source) Naproxen Drug Allergy 7 Intolerance [facility] (9 sources) oxaprozin; Translations: [oxaprozin] Drug Allergy dizziness [facility] Work Phone: (8 sources) NITROFURANTOIN, MACROCRYSTALS / Nitrofurantoin, Monohydrate; Translations: [nitrofurantoin] Drug Allergy Unknown (qualifier value) [facility] Work Phone: (5 sources) Sulfamethoxazole / Trimethoprim; Translations: [sulfamethoxazole-tr imethoprim] Drug Allergy [facility] Medications Current Medications Medication Drug Class(es) Dates Sig (Normalized) Sig (Original) acetaminophen 500 mg oral tablet (5 sources) Start: 02-23-2022 acetaminophen 500 mg oral tablet Dose : 1,000 mg = 2 tab(s), Oral, TID, PRN pain or fever, 0 Refill(s) Start Date: 02/23/22 Status: Ordered anastrozole 1 mg oral tablet (4 sources) Aromatase Inhibitor Start: 02-19-2021 anastrozole 1 mg oral tablet 0 Refill(s) Start Date: 02/19/21 Status: Ordered betamethasone 0.5 mg/ml / clotrimazole 10 mg/ml topical cream (3 sources) Azole Antifungal, Corticosteroid Start: 06-29-2021 Lotrisone 1%-0.05% topical cream Apply 1 katerine, Topical, BID, # 15 gram(s), 3 Refill(s), Pharmacy: [facility]/pharmacy #[id number], Cream, 158, cm, 06/29/21 15:40:00 EST, Height, 92.7, kg, 06/29/21 15:40:00 EST, Dosing Weight Start Date: 06/29/21 Status: Ordered Completed/Discontinued Medications Medication Drug Class(es) Dates Sig (Normalized) Sig (Original) esomeprazole 20 mg delayed release oral capsule (1 source) Proton Pump Inhibitor Start: 11-16-2006 NEXIUM 20 MG CAP Take one(1) capsule daily. 0 11/16/2006 Active Problems Active Problems Problem Classification Problem Date Documented Date Episodic/Chronic Abdominal pain (1 source) Abdominal pain 09-09-2023 Episodic Cancer of breast (5 sources) Malignant tumor of breast 02-25-2022 Chronic Cancer of breast (9 sources) History of malignant neoplasm of breast 08-13-2020 Episodic Esophageal disorders (2 sources) Gastroesophageal reflux disease without esophagitis; Translations: [Gastro-esophageal reflux disease without esophagitis] Onset: 06-12-2022 Chronic Fever of unknown origin (1 source) Fever; Translations: [Fever, unspecified] Onset: 06-12-2022 Episodic Genitourinary symptoms and ill-defined conditions (2 sources) Unspecified symptoms and signs involving the genitourinary system; Translations: [Unspecified symptoms and signs involving the genitourinary system] Onset: 10-04-2023 Episodic Other nutritional; endocrine; and metabolic disorders (5 sources) Body mass index 30+ - obesity 02-25-2022 Chronic Residual codes; unclassified (1 source) Family history of breast cancer 09-09-2023 Episodic Residual codes; unclassified (1 source) FH: Stomach cancer 09-09-2023 Episodic Unclassified (5 sources) Patient encounter status 02-25-2022 Urinary tract infections (1 source) Urinary tract infectious disease; Translations: [Urinary tract infection, site not specified] Onset: 06-12-2022 Episodic Past or Other Problems Problem Classification Problem Date Documented Da te Episodic/Chronic Allergic reactions (1 source) Contact dermatitis due to solar radiation; Translations: [Other chronic dermatitis due to solar radiation] Onset: 11-17-2006 11-17-2006 Episodic Other inflammatory condition of skin (1 source) Seborrheic dermatitis; Translations: [Other seborrheic dermatitis] Onset: 11-17-2006 11-17-2006 Episodic Other skin disorders (1 source) Other seborrheic keratosis; Translations: [Other seborrheic keratosis] Onset: 11-17-2006 11-17-2006 Episodic Other skin disorders (1 source) Actinic keratosis; Translations: [Actinic keratosis] Onset: 01-02-2007 01-02-2007 Episodic Viral infection (2 sources) Verruca vulgaris; Translations: [Other specified viral warts] Onset: 11-17-2006 11-17-2006 Episodic Results Test Name Value Interpretation Reference Range Facil ity Vital Signs Date Time Vital Sign Value Performing Clinician Mony tyler 06-13-2022 07:45-0400 Body temperature 98.24 [degF] ROLAN ROBERTS [facility] 06-13-2022 07:45-0400 Diastolic blood pressure 80 mm[Hg] ROLAN ROBERTS [facility] 06-13-2022 07:45-0400 Heart rate 96 /min ROLAN ROBERTS [facility] 06-13-2022 07:45-0400 Reason For Taking VItal Signs ROLAN KENNEN SISAL OPERATOR-CUSTODIAL OPERATIONS MANAGER [facility] 06-13-2022 07:45-0400 Respiratory rate 18 /min ROLAN ROBERTNEN SISAL OPERATOR-CUSTODIAL OPERATIONS MANAGER [facility] 06-13-2022 07:45-0400 Systolic blood pressure 121 mm[Hg] ROLAN KENNEN SISAL OPERATOR-CUSTODIAL OPERATIONS MANAGER [facility] 06-13-2022 05:46-0400 Body temperature 98.24 [degF] ROLAN ROBERTNEN SISAL OPERATOR-CUSTODIAL OPERATIONS MANAGER [facility] 06-13-2022 05:46-0400 Diastolic blood pressure 78 mm[Hg] ROLAN KENNEN SISAL OPERATOR-CUSTODIAL OPERATIONS MANAGER [facility] 06-13-2022 05:46-0400 Heart rate 98 /min ROLAN ROBERTNEN SISAL OPERATOR-CUSTODIAL OPERATIONS MANAGER [facility] 06-13-2022 05:46-0400 Respiratory rate 18 /min ROLAN KENNEN SISAL OPERATOR-CUSTODIAL OPERATIONS MANAGER [facility] 06-13-2022 05:46-0400 Systolic blood pressure 141 mm[Hg] ROLAN ROBERTNEN SISAL OPERATOR-CUSTODIAL OPERATIONS MANAGER [facility] 06-13-2022 02:45-0400 Body temperature 97.7 [degF] ROLAN ROBERTNEN SISAL OPERATOR-CUSTODIAL OPERATIONS MANAGER [facility] 06-12-2022 23:15-0400 Diastolic blood pressure 83 mm[Hg] ROLAN KENNEN SISAL OPERATOR-CUSTODIAL OPERATIONS MANAGER [facility] 06-12-2022 23:15-0400 Heart rate 100 /min ROLAN KENNEN SISAL OPERATOR-CUSTODIAL OPERATIONS MANAGER [facility] 10-29-2022 23:15-0400 Respiratory rate 18 /min ROLAN LA SISAL OPERATOR-CUSTODIAL OPERATIONS MANAGER [facility] 06-12-2022 23:15-0400 Systolic blood pressure 156 mm[Hg] ROLANLEAH ARRIOLAN SISAL OPERATOR-CUSTODIAL OPERATIONS MANAGER [facility] 06-12-2022 15:58-0400 Reason For Taking VItal Signs ROLAN LA SISAL OPERATOR-CUSTODIAL OPERATIONS MANAGER [facility] 06-12-2022 12:14-0400 Heart rate 111 /min ROLANLEAH ARRIOLAN SISAL OPERATOR-CUSTODIAL OPERATIONS MANAGER [facility] 06-12-2022 12:14-0400 Reason For Taking VItal Signs ROLANLEAH LA SISAL OPERATOR-CUSTODIAL OPERATIONS MANAGER [facility] 06-12-2022 07:10-0400 Heart rate 108 /min ROLANLEAH ARRIOLAN SISAL OPERATOR-CUSTODIAL OPERATIONS MANAGER [facility] 06-12-2022 07:10-0400 Mean blood pressure 84 mm[Hg] ROLAN ARRIOLAN SISAL OPERATOR-CUSTODIAL OPERATIONS MANAGER [facility] 06-12-2022 04:35-0400 Heart rate 91 /min ROLANLEAH ARRIOLAN SISAL OPERATOR-CUSTODIAL OPERATIONS MANAGER [facility] 06-12-2022 04:35-0400 Mean blood pressure 92 mm[Hg] ROLANLEAH ARRIOLAN SISAL OPERATOR-CUSTODIAL OPERATIONS MANAGER [facility] 06-11-2022 23:30-0400 Mean blood pressure 80 mm[Hg] ROLANLEAH JONESNEN SISAL OPERATOR-CUSTODIAL OPERATIONS MANAGER [facility] 06-11-2022 18:29-0400 Body height 160 cm ROLANLEAH ARRIOLAN SISAL OPERATOR-CUSTODIAL OPERATIONS MANAGER [facility] 06-11-2022 18:29-0400 Body weight 91.8 kg ROALN LA SISAL OPERATOR-CUSTODIAL OPERATIONS MANAGER [facility] 06-11-2022 18:29-0400 Body weight 35.86 kg/m2 ROLAN LA SISAL OPERATOR-CUSTODIAL OPERATIONS MANAGER [facility] 06-11-2022 15:28-0400 Heart rate 133 /min ROLAN LA SISAL OPERATOR-CUSTODIAL OPERATIONS MANAGER [facility] Encounters Encounter Date Encounter Type Care Provider Facility Start: 10-04-2023 End: 10-09-2023 ambulatory REINALDO MEIALEIDA SISAL OPERATOR-CUSTODIAL OPERATIONS MANAGER Facility:B Start: 09-19-2023 End: 09-20-2023 ambulatory REINALDO MEIALEIDA SISAL OPERATOR-CUSTODIAL OPERATIONS MANAGER Facility:[facility] Start: 09-19-2023 End: 09-19-2023 Patient encounter procedure REINALDO LORENA SISAL OPERATOR-CUSTODIAL OPERATIONS MANAGER [facility] Start: 09-06-2023 End: 09-07-2023 ambulatory REINALDO CARRILLO SISAL OPERATOR-CUSTODIAL OPERATIONS MANAGER Facility:[facility] Start: 09-06-2023 End: 09-06-2023 Patient encounter procedure REINALDO LORENA SISAL OPERATOR-CUSTODIAL OPERATIONS MANAGER [facility] Start: 09-02-2022 End: 09-02-2022 Patient encounter procedure REINALDO CARRILLO SISAL OPERATOR-CUSTODIAL OPERATIONS MANAGER [facility] Start: 07-09-2022 End: 07-13-2022 Outreach Lab REINALDO CARRILLO SISAL OPERATOR-CUSTODIAL OPERATIONS MANAGER [facility] Start: 06-11-2022 End: 06-13-2022 Evaluation and management of inpatient ROLAN LA SISAL OPERATOR-CUSTODIAL OPERATIONS MANAGER [facility] Start: 12-02-2021 End: 12-02-2021 Patient encounter procedure DHIRAJ LEMOS MD [facility] Start: 08-31-2021 End: 09-04-2021 Outreach Lab DHIRAJ LEMOS MD [facility] Start: 08-31-2021 End: 08-31-2021 Patient encounter procedure DHIRAJ LEMOS MD [facility] Start: 06-06-2021 End: 06-06-[address] ROSY BHATT DO [facility] Start: 09-26-2020 End: 09-26-2020 Patient encounter procedure Anish Dave Work Phone: [facility] Start: 09-26-2020 Results Only Anish Jean dy Work Phone: General Surgery Procedures Date Procedure Procedure Detail Performing Clinician Start: 09-26-2020 PT ED PATIENT INFORMATION Anish Dave Work Phone: Start: 09-07-2018 Mastectomy of left breast DR ROSY BHATT DO Start: 06-28-2007 Laparoscopic cholecy stectomy with cholangiography DR ROSY BHATT DO Start: 02-13-[address] ROSY BHATT DO Start: 08-15-[address] VARINDER BHATT DO Plan of Treatment Date Care Activity Detail Author Start: 04-15-2020 Influenza vaccination INFLUENZA (#1) [facility] Start: 2016 ADVANCE DIRECTIVE DISCUSSION ADVANCE DIRECTIVE DISCUSSION [facility] Start: 2016 BONE DENSITY BONE DENSITY [facility] Start: 2016 PNEUMOVAX AGE 65 AND OVER WITH 5YR LOOKBACK (#1) PNEUMOVAX AGE 65 AND OVER WITH 5YR LOOKBACK (#1) [facility] Start: 2001 Screening for malign ant neoplasm of colon [facility] Start: 2001 SHINGRIX VACCINE (1 of 2) FLORES GRIX VACCINE (1 of 2) [facility] Start: 1996 DIABET[facility] SCREEN [facility] Start: 1996 LIPID SCREEN LIPID SCREEN [facility] Start: 1991 Mammography MAMMOGRAM [facility] Start: 1970 Urine microalbumin profile DTAP,TDAP ,TD (1 - Tdap) [facility] Start: 1969 HEPATITIS C SCREENING HEPATITIS C SC REENING [facility] Start: 1963 Adult depression scr eening assessment DEPRESSION SCREENING [facility] PT ED PATIENT INFORMATION PT ED PATIENT INFORMATION Other 09/26/2020 [facility] Immunizations Immunization Date Immunization Notes Care Provider Fa [facility] 06-08-2023 SARS-CoV-2 (COVID-19 ) [id number] REINALDO CARRILLO SISAL OPERATOR-CUSTODIAL OPERATIONS MANAGER [facility] 05-23-2023 influenza virus vaccine, unspecified formulation REINALDO CARRILLO SISAL OPERATOR-CUSTODIAL OPERATIONS MANAGER [facility] 12-02-2021 COVID-19, mRNA, LNP- S, PF, 100 mcg or 50 mcg dose; Translations: [Moderna COVID-19 Vaccine] DHIRAJ LEMOS MD [facility] 06-17-2021 COVID-19, mRNA, LNP- S, PF, 100 mcg or 50 mcg dose; Translations: [Moderna COVID-19 Vaccine] DHIRAJ LEOMS MD [facility] 06-03-2021 zoster vaccine recombinant DHIRAJ LEMOS MD [facility] 04-03-2021 influenza virus vaccine, unspecified formulation DHIRAJ LEMOS MD [facility] 04-03-2021 zoster vaccine recombinant DHIRAJ LEMOS MD [facility] 11-10-2020 SARS-CoV-2 (COVID-19 ) mRNA-1273 vaccine DHIRAJ LEMOS MD [facility] 10-13-2020 SARS-CoV-2 (COVID-19 ) mRNA-[address] ROSY BHATT DO [facility] Payers Date Payer Category Payer Unknown [id number] 2020 Unknown PRIMETIME PRIMET [employer] HMO POS [id number] 2020-Present HMO [id number] 1950 Unknown [id number] 1950 Unknown [id number] 1950 Unknown [id number] Social History Date Type Detail Facility [facility]: 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 Start: 1950 Sex Assigned At [facility] on [facility] Exposure to SARS-CoV -2 (event) Not sure [facility] Start: 06-06-2021 Ex-smoker (finding) [facility] Functional Status Date Assessment Result Facility 06-13-2022 Functional Status Remains out of bed, Remains up in chair [facility] 06-13-2022 Functional Status Door open [facility] 06-13-2022 Functional Status [facility] 06-13-2022 Functional Status [facility] 06-13-2022 Functional Status [facility] 06-12-2022 Functional Status [facility] 06-12-2022 Functional Status Single level home [facility] 06-11-2022 Functional Status SCD On/Re-appl ied bilateral knee high [facility] 06-11-2022 Functional Status Sensory Deficits None [facility] Mental Status Date Assessment Result Facility 06-13-2022 Mental Status Oriented x 4 [facility] 06-13-2022 Mental Status [facility] 06-12-2022 Mental Status [facility] Clinical Notes 09-29-2020 to 10-05-2023 LaboratoryRadiology Note Date & Type Note Facility 10-05-2023 Note . MICRO - Microbiology PROCEDURE: Urine Culture [*1] SOURCE: Urine, Clean Catch BODY SITE: COLLECTED DATE/TIME: 10/04/2023 13:49 EST RECEIVED DATE/TIME: 10/04/2023 19:06 EST START DATE/TIME: 10/04/2023 19:06 EST FREE TEXT SOURCE: FINAL REPORTS Final Report [] Verified Date/Time/Personnel: 10/05/2023 14:23 EST 10,000 - 50,000 cfu/ml Multiple bacterial morphotypes present. Probable Contamination. Suggest recollection if clinically indicated. Performing Locations *1: This test was performed at: [facility], [address] [place] [address], [address] , [facility] ([place]) 09-06-2023 Note ORIGINAL FROM: [facility] [address] [place], [place] [address] PROCEDURE FOR: CHELLE WINTER [address] [id number] Home: PID#: [id number] Exam#: [id number] : 1950 Age: 73 TO: REINALDO CARRILLO APRN [facility] [place], [place] [address] Fax: NO FAX EXAMINATION: ULTRASOUND OF THE LEFT BREAST 09/06/2023 10:12 am TECHNIQUE: Color flow and real-time targeted ultrasound of the left breast retroareolar region were performed. COMPARISON: 09/02/2022 HISTORY: ORDERING SYSTEM PROVIDED HISTORY: Reason for Exam: hty of breast cancer, breast pain Left breast pain/palpable area retroareolar region near the incision site FINDINGS: There is a 2.7 cm seroma in the left breast retroareolar region. This correlates with the patient's lump/pain. This is not significantly changed from the prior exam. IMPRESSION: The 2.7 cm seroma in the left breast is considered benign. This does not require imaging follow-up. Please note that a screening right mammogram was performed today and recommended a right breast ultrasound for a mass that was not evaluated on this exam. BIRADS: MAMMOGRAM BI-RADS: 2: Benign finding RECALL: none RECALL TYPE: unspecified LETTER SENT: Normal BI-RADS 1 and 2 Interpreted by: Frances Bender MD Preliminary Report By: Frances Bender MD Electronically signed By Frances Bender MD Dictated Date: 09/06/2023 1:07:54 PM Prelim Date: 09/06/2023 1:11:20 PM Sign Date: 09/06/2023 1:11:20 PM Ordering Provider: REINALDO CARRILLO CLINICAL: MASTODYNIA. copy to: LAILA TAPIA DO, ph: [phone], fax: [phone] copy to: NOVA HE MD, ph: [phone], fax: [phone] copy to: BAYRON BENÍTEZ MD, ph: [phone], fax: [phone] Canceling Machine Operator: AVELINO SANTOS RT(R) RDMS letter sent: Normal BI-RADS 1 and 2 Ultrasound BI-RADS: 2 Benign [facility] 09-06-2023 Note ORIGINAL FROM: [place] [id number] [place], [place] [address] PROCEDURE FOR: CHELLE WINTER [address] [phone] Home: PID#: [id number] Exam#: [id number] : 1950 Age: 73 TO: REINALDO CARRILLO SISAL OPERATOR [facility] [address] [place], [place] [address] Fax: NO FAX EXAMINATION: SCREENING DIGITAL RIGHT MAMMOGRAM WITH TOMOSYNTHESIS, 09/06/2023 10:12 am TECHNIQUE: Screening mammography of the right breast was performed with tomosynthesis. 2D standard and 3D tomosynthesis combination imaging performed through the right breast in the MLO and CC projection. Computer aided detection was utilized in the interpretation of this exam. COMPARISON: 09/02/2022, 08/31/2021, 08/26/2020 HISTORY: Breast cancer screening. FINDINGS: BREAST DENSITY: Scattered fibroglandular tissue There is a new 1.1 cm irregular mass in the right breast at 10 o'clock middle depth. This is confirmed on additional tomographic views. There are no other significant masses, calcifications, or other findings. IMPRESSION: The new 1.1 cm irregular mass in the right breast at 10 o'clock is indeterminate. A right breast ultrasound is recommended. We will contact the patient to arrange for the exam. Tyrer Cuzick risk calculations do not apply for this patient. BIRADS: MAMMOGRAM BI-RADS: 0: Needs addl evaluation RECALL: immediate RECALL TYPE: Right US LETTER SENT: Abnormal-Needs additional work up BI-RADS 0 Interpreted by: Frances Bender MD Preliminary Report By: Frances Bender MD Electronically signed By Frances Bender MD Dictated Date: 09/06/2023 12:45:45 PM Prelim Date: 09/06/2023 1:07:32 PM Sign Date: 09/06/2023 1:07:32 PM Ordering Provider: REINALDO CARRILLO copy to: LAILA TAPIA DO, ph: [phone], fax: [phone] copy to: NOVA HE MD, ph: [phone], fax: [phone] copy to: BAYRON BENÍTEZ MD, ph: [phone], fax: [phone] Canceling Machine Operator: CLEMENTE PHILLIPS RT (R)(M) letter sent: Abnormal-Needs additional work up BI-RADS 0 Mammogram BI-RADS: 0 Indeterminate [facility] 02-23-2023 Evaluation + Plan note Future Scheduled TestsLipid Profile 02/23/23 [facility] 07-09-2022 Evaluation + Plan note Future Scheduled TestsMA Mammo Screening Right w/ Avel 07/09/22US Breast Left Complete 07/09/22 [facility] 06-13-2022 Note Discharge Instructions Thank you for allowing [facility] to assist you with your healthcare needs. The following is important discharge information regarding your hospital visit. Your Care Team REINALDO CARRILLO APRN-CUSTODIAL OPERATIONS MANAGER Your Diagnosis UTI (urinary tract infection) Fever GERD - Gastro-esophageal reflux disease What to do next The Following Activity and Diet Have Been Ordered for You Discharge Activity - Ordered -- Resume your pre-hospitalization activity, 06/13/22 8:37:00 EDT Discharge Diet - Ordered -- No changes were made to your diet during your hospital stay. Please resume your pre hospitalization diet on discharge., 06/13/22 8:37:00 EDT The Following Equipment Has Been Ordered for You No qualifying data available. The Following Treatments Have Been Ordered for You Discharge Labs No qualifying data available. Discharge Radiology No qualifying data available. Other Therapies No qualifying data available. Post Acute Orders No qualifying data available. Someone Will Contact You Regarding These Home Health Referrals No home referrals have been ordered for you. No one will call you. Allergies Bactrim Daypro (dizziness) nitrofurantoin (Unknown) Medications Please ask your primary doctor or pharmacist before taking any other medication not listed, including over the counter drugs, herbal medications, vitamins and or supplements as they may interact with your home medications. What How Much When Instructions Last Dose New cefuroxime (cefuroxime 500 mg oral tablet) 1 tab(s) by mouth Two (2) times a day Duration: 7 Days Pickup at [facility]/pharmacy #[id number] Unchanged acetaminophen (acetaminophen 500 mg oral tablet) 2 tab(s) by mouth Three (3) times a day as needed for pain or fever Unchanged cholecalciferol (Vitamin D3) 600 IU by mouth Every day per pt Unchanged exemestane (exemestane 25 mg oral tablet) 1 tab(s) by mouth Once a day Unchanged omeprazole (omeprazole 40 mg oral delayed release capsule) 1 cap by mouth Once a day Pharmacy Information [facility]/pharmacy #[id number]: [address], [place] [id number] [phone] Please take this list to your next doctor s visit. Bring all medications you take, including over the counter medications, herbals and other supplements with you to your doctor s visit. Patients and families are reminded to discard old lists and to update any records with all medication providers or retail pharmacies. Medication Leaflets cefuroxime (oral/injection) (SEF ue BRITTANY eem) What is the most important information I should know about cefuroxime? Cefuroxime can cause serious or life-threatening allergic reactions. Tell your doctor if you have an allergy to an antibiotic, especially penicillin. What is cefuroxime? Cefuroxime is a cephalosporin (SEF a low spor in) antibiotic that is used to treat bacterial infections of the ear, nose, throat, lungs, skin, bones, joints, bladder, or kidneys. Cefuroxime is also used to treat gonorrhea, sepsis, or early Lyme disease. Cefuroxime injection is sometimes given before and after a surgery to prevent infection. Cefuroxime may also be used for purposes not listed in this medication guide. What should I discuss with my healthcare provider before using cefuroxime? Cefuroxime can cause serious or life-threatening allergic reactions. You should not use this medicine if you have ever had a severe allergic reaction to an antibiotic, such as: cefuroxime, cefadroxil, cefdinir, cefoxitin, cefprozil, ceftriaxone, cephalexin, Keflex, Omnicef, and others; avibactam, relebactam, sulbactam, tazobactam, vaborbactam, and others; or amoxicillin (Amoxil, Augmentin, Moxatag), ampicillin, dicloxacillin, oxacillin, penicillin, and others. Tell your doctor if you have ever had: an stomach or intestinal disorder such as colitis; kidney disease; liver disease; or heart problems. Cefuroxime oral suspension may contain phenylalanine and could be harmful if you have phenylketonuria (PKU). Tell your doctor if you are or . If you are being treated for gonorrhea: Having gonorrhea during may increase the risk of complications including premature , low weight, or gonorrhea developing the . The benefit of treating this condition may outweigh any risks to the baby. Not approved for use by anyone younger than 3 months old. How should I use cefuroxime? Follow all directions on your prescription label and read all medication guides or instruction sheets. Use the medicine exactly as directed. Cefuroxime oral is taken by mouth. Swallow the tablet whole and do not crush, chew, or break it. Take with or without food. Shake the oral suspension (liquid). Measure a dose with the supplied measuring device (not a kitchen spoon). Take with food. Tell your doctor if a child taking cefuroxime has trouble swallowing the medicine. Cefuroxime oral may be given as a single dose to treat gonorrhea. For most other infections, cefuroxime oral is usually given for 7 to 10 days, or for 20 days to treat early Lyme disease. Your dose needs may change if you switch from tablets to oral suspension. Follow your doctor's dosing instructions very carefully. Cefuroxime injection is given into a muscle or a vein, usually for 5 to 10 days. Ask your doctor or pharmacist if you don't understand how to use an injection. You may need to mix cefuroxime with a liquid (diluent) before using it. Use only the diluent your doctor has recommended. Prepare an injection only when you are ready to give it. Call your pharmacist if the medicine has changed colors or has particles in it. Do not reuse a needle or syringe. Place them in a puncture-proof 'sharps' container and dispose of it following state or local laws. Keep out of the reach of children and pets. Keep using this medicine even if your symptoms quickly improve. Skipping doses could make your infection resistant to medication. Cefuroxime will not treat a viral infection (flu or a common cold). Cefuroxime can affect the results of certain medical tests. Tell any doctor who treats you that you are using cefuroxime. Store the tablets at room temperature away from moisture and heat. Keep the bottle tightly closed when not in use. Store the oral suspension in the refrigerator, do not freeze. Throw away any unused medicine after 10 days. After mixing cefuroxime for injection, you will need to use it within a certain number of hours or days. This will depend on the diluent and how you store the mixture (at room temperature or in a refrigerator). Be sure you understand how to properly mix and store the medicine if using injections at home. If the cefuroxime injection is frozen when you receive it, thaw the medicine at room temperature (do not use heat). After thawing, you may store the cefuroxime injection at room temperature for up to 24 hours, or in a refrigerator for up to 7 days. Do not refreeze the medicine once it has been thawed. What happens if I miss a dose? Take the medicine as soon as you can, but skip the missed dose if it is almost time for your next dose. Do not use take doses at one time. Call your doctor for instructions if you miss a cefuroxime injection. What happens if I overdose? Seek emergency medical attention or call the Poison Help line at . Overdose symptoms may include seizure. What should I avoid while using cefuroxime? Antibiotic medicines can cause diarrhea. Tell your doctor if you have diarrhea that is watery or bloody. What are the possible side effects of cefuroxime? Get emergency medical help if you have signs of an allergic reaction (hives, difficult breathing, swelling in your face or throat) or a severe skin reaction (fever, sore throat, burning in your eyes, skin pain, red or purple skin rash that spreads and causes blistering and peeling). Call your doctor at once if you have: severe stomach pain, diarrhea that is watery or bloody (even if it occurs months after your last dose); jaundice (yellowing of the skin or eyes); fever, chills; a seizure; or chest pain. Common side effects may include: nausea, vomiting, diarrhea; flu-like symptoms; vaginal itching or discharge; or diaper rash (in people using the oral suspension). This is not a complete list of side effects and others may occur. Call your doctor for medical advice about side effects. You may report side effects to FDA at 4-193-RBX-5684. What other drugs will affect cefuroxime? Tell your doctor about all your other medicines, especially: any other IV antibiotic; probenecid; a diuretic or 'water pill'; a blood thinner--warfarin, Coumadin, Jantoven; or a stomach acid occupational therapist's assistant--esomeprazole, famotidine, Nexium, Pepcid, Prevacid, Prilosec, Tagamet, Zantac, and others. This list is not complete. Other drugs may affect cefuroxime, including prescription and plpy-cvi-bvzfjgm medicines, vitamins, and herbal products. Not all possible drug interactions are listed here. Where can I get more information? Your pharmacist can provide more information about cefuroxime. Remember, keep this and all other medicines out of the reach of children, never share your medicines with others, and use this medication only for the indication prescribed. Every effort has been made to ensure that the information provided by [employer]') is accurate, up-to-date, and complete, but no guarantee is made to that effect. Drug information contained herein may be time sensitive. [employer] information has been compiled for use by healthcare practitioners and consumers in the [place] and therefore [employer] does not warrant that uses outside of the [place] are appropriate, unless specifically indicated otherwise. [employer]'s drug information does not endorse drugs, diagnose patients or recommend therapy. [facility] drug information is an informational resource designed to assist licensed healthcare practitioners in caring for their patients and/or to serve consumers viewing this service as a supplement to, and not a substitute for, the expertise, skill, knowledge and judgment of healthcare practitioners. The absence of a warning for a given drug or drug combination in no way should be construed to indicate that the drug or drug combination is safe, effective or appropriate for any given patient. [employer] does not assume any responsibility for any aspect of healthcare administered with the aid of information [employer] provides. The information contained herein is not intended to cover all possible uses, directions, precautions, warnings, drug interactions, allergic reactions, or adverse effects. If you have questions about the drugs you are taking, check with your doctor, nurse or pharmacist. Copyright 6379-8775 [facility], [place]. Version: 10.. Revision Date: 06/16/2021. Additional Information VACCINATE! IT SAVES LIVES! Members of the community who have not yet received the COVID-19 vaccine and would like to receive it can visit one of [facility] vaccine clinics. There are many vaccine clinic locations within the [facility]. For locations and available times, please visit [email or web address] hio.gov/. It is important to note that some COVID mobile vaccine clinics are held outdoors and may be canceled in rainy or stormy conditions. To learn more about pediatric vaccinations (ages 5-11), we invite you to visit the [employer] webpage. [email or web address]/p [email or web address]-Wfzfw-Mdxktshwwwm-Freq tluows-Ixxvg-Wsgzzmuit.html To learn more about the COVID-19 vaccine, we invite you to visit the [facility] website for a list of frequently asked questions. [email or web address] [email or web address]-Dwqguwf-P requently_[email or web address]-Questions.pdf [employer] Patient Portal Access Instructions: Stay connected with your healthcare team and access your personal medical information anytime with the [employer] Patient Portal.If you would like a full copy of your medical records, please contact the [facility] Medical Records Department, Tuesday through Tuesday between 8a.m. and 4:30p.m. Please follow the directions below to access the portal: 1.Access the email account you provided upon registration to the [facility].2.Look for an invitation email from [facility].3.Open the email and access the invitation link: Accept Invitation to [employer]4.Fill in the required kwan to create your account. Sign into [email or web address] In with your username and password that you created in the above steps to stay up to date. You can then view a summary of results, a summary of your visits, and the ability to download your summaries to your computer or send the information securely to a physician. Remember that your healthcare information is confidential, so carefully consider who you will allow to register on the [employer] Patient Portal for access to your information. You can also access the [facility] Patient Portal on the [employer] [facility] katerine. Simply click on Health Records under Health Data and then click on the [employer] logo. HOW TO SAFELY DISPOSE OF PRESCRIPTION MEDICATIONS Please use one of the following methods to safely dispose of your unused medications. 1.Use a drug disposal kit: the drug disposal pouch allows you to safely discard your old and unused drugs. Ask your nurse to give you one when you are discharged.2.Visit a local take-back location: Many local pharmacies and police departments have programs that collect old and unwanted prescription drugs. Call your local pharmacy or go to http://[employer]MediCard/8B7Iz3v to find one close to you.3.Make use of household items: Use cat litter or old coffee grounds to dispose medications if other options are not available. Mix your drugs with these household products, seal them in an airtight container and throw it into the garbage. Call [facility]: [phone] to be sure your drugs can be disposed of in this way. Some medicines may require a different approach.4.Never flush your medications down the toilet. IF YOU HAVE BEEN PRESCRIBED AN OPIOID FOR PAIN If you have been prescribed an opioid (such as hydrocodone, oxycodone or morphine), it is critical to understand the possible side effects and risks of opioid pain medications. Even when taken as directed, opioids can have several side effects including: Tolerance, meaning you might need to take more of a medication for the same pain relief. Nausea, vomiting and/or constipation. Sleepiness, dizziness, dry mouth, confusion, depression or itching. Physical dependence, meaning you have withdrawal symptoms when a medication is stopped, can develop within a few days. KNOW YOUR RESPONSIBILITIES It is important to know exactly how much and how often to take the opioid pain medications you are prescribed. Never take opioids in higher amounts or more often than prescribed. Do not combine opioids with alcohol or other drugs that cause drowsiness, such as benzodiazepines, also known as benzos, including diazepam and alprazolam, muscle relaxants or sleep aids. Never sell or share prescription opioids. This is illegal. Store opioids in a secure place and out of reach of others (including children, family, friends and visitors). The last page of this document has been signed and retained as a CHART COPY. Signatures Patient Education Materials Medication Leaflets cefuroxime (oral/injection) My discharge plan and instructions have been reviewed and explained to me and I,PAMELLA CHELLE Scar understand my current condition and have read and understand these discharge instructions. I have received a written copy of the plan/instructions. If I have questions, I am aware that I should contact my doctor. 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 UTI (urinary tract infect ion) 2. Fever 3. GERD - Gastro-esophageal reflux disease UTI continue Rocephin 1 g daily. Patient's urinary symptoms have ceased. She remains hemodynamically stable. Fever patient has had persistent temperature requiring Tylenol. We will check respiratory panel as well as a chest x-ray for completeness. GERD pantoprazole 40 mg daily. DVT prophylaxis: SCDs Labs, diagnostics, and progress notes reviewed as noted in HPI Code Status: Full code Plan of care discussed with patient. All questions answered. Patient verbalizes understanding is agreeable to plan of care. This dictation was performed using voice recognition software and may include grammatical and/or spelling errors. [facility] 10-29-2022 Note ORIGINAL EXAMINATION: ONE XRAY VIEW OF THE CHEST 06/12/2022 11:45 am COMPARISON: None. HISTORY: ORDERING SYSTEM PROVIDED HISTORY: Reason for Exam: fever FINDINGS: The cardiac and mediastinal contours are within normal limits. Mildly low lung volumes. There is no appreciable pneumothorax, pleural effusion, or vascular congestion. No focal consolidations. Very mild streaky opacities of right lung base are compatible with subsegmental atelectasis. Degenerative changes are evident of the spine. IMPRESSION: 1. Findings compatible with very mild right basilar subsegmental atelectasis. Otherwise, no evidence of acute cardiopulmonary process. Interpreted by: Everett Mcdonald DO Preliminary Report By: Everett Mcdonald DO Electronically signed By Everett Mcdonald DO Dictated Date: 06/12/2022 12:03:14 PM Prelim Date: 06/12/2022 12:04:08 PM Sign Date: 06/12/2022 12:04:08 PM Ordering Provider: [facility] [place], [facility]10-29-2022 Note ORIGINAL EXAMINATION: ONE XRAY VIEW OF THE CHEST 06/12/2022 11:45 am COMPARISON: None. HISTORY: ORDERING SYSTEM PROVIDED HISTORY: Reason for Exam: fever FINDINGS: The cardiac and mediastinal contours are within normal limits. Mildly low lung volumes. There is no appreciable pneumothorax, pleural effusion, or vascular congestion. No focal consolidations. Very mild streaky opacities of right lung base are compatible with subsegmental atelectasis. Degenerative changes are evident of the spine. IMPRESSION: 1. Findings compatible with very mild right basilar subsegmental atelectasis. Otherwise, no evidence of acute cardiopulmonary process. Interpreted by: Everett Mcdonald DO Preliminary Report By: Everett Mcdonald DO Electronically signed By Everett Mcdonald DO Dictated Date: 06/12/2022 12:03:14 PM Prelim Date: 06/12/2022 12:04:08 PM Sign Date: 06/12/2022 12:04:08 PM Ordering Provider: [facility]10-29-2022 Note Date of Service 06/12/2022 Chief Complaint Pt alert and oriented. C/o dysuria, fever. and chills for 3 days. States started on BActrim but it was causing itching. Sent from [facility]. History of Present Illness 71-year-old female with past medical history significant for GERD. Patient took a home test to determine that she had a urinary tract infection. Called PCP and was initiated on Bactrim for this on 06/10/2022. She began having confusion and came into see the PCP. Shewas directed to go to the emergency department.In the emergency department patient was febrile at 38.9, tachycardic at 136. She was hemodynamically stable with adequate oxygen saturations on room air. White blood cell count 15,000. Specific gravity of urine 1.025. Negative for nitrates, positive for leukocyte Estrace, 2+ bacteria. Sodium level 133, creatinine 1.28. Patient was given a liter of normal saline and initiated on antibiotics. Additionally urine and blood cultures were collected. Blood cultures show no growth to date. Overnight patient continued to have fevers with a T high of 39.4.This morning she was 37.8. She has been receiving acetaminophen. Remains hemodynamically stable with adequate oxygen saturations on room air. No leukocytosis this morning. Creatinine improving at 1.16. GFR 46. On exam today patient states that she feels better than she had been. Admits continued fever. No chills. Denies any headaches or dizziness. No chest pain or palpitations. Denies cough, dyspnea, wheeze. No nausea or vomiting. No constipation or diarrhea. Denies any urinary frequency, urgency, dysuria today. No new paresthesias. Denies pain. Review of Systems See HPI for specific ROS. All other systems reviewed and negative. Physical Exam Vitals and Measurements T: 37.8 C (Oral) TMIN: 36.9 C (Oral) TMAX: 39.4 C (Oral) HR: 108(Monitored) RR: 20 BP: 109/72 SpO2:92% HT: 160 cm WT: 91.8 kg BMI: 35.86 Weight Dosing Weight: 91.8 kg (06/11/22) GEN: Appears well-developed. EYES: No conjunctival erythema, drainage. EOMI EARS: Hearing grossly intact. NOSE: No nasal discharge. THROAT: Oral cavity and pharynx pink and moist. CHEST: Normal S1 and S2. Rhythm is regular. Clear to auscultation, without rales, rhonchi, wheezing. ABD: Positive bowel sounds x 4 quads. Soft, nondistended, nontender. EXT: No significant deformity or joint abnormality. No edema. Peripheral pulses intact. NEURO: Sensation grossly intact SKIN: Skin color normal PSYCH: The mental examination revealed the patient was alert and oriented x 4 Lab Results 06/12 07:52 WBC: 9.4 Hgb: 10.9 L Hct: 32.3 L Platelet: 184 Neutrophil %: 91.1 H Glucose Level: 99 Sodium Level: 138 Potassium Level: 3.9 BUN: 17 Creatinine Lvl (s): 1.16 H 06/11 17:02 Protime: 15.9 H PT International Ratio: 1.4 H 06/11 15:54 WBC: 15.8 H Hgb: 12.5 Hct: 37.4 Platelet: 227 Neutrophil %: 94.8 H Glucose Level: 120 H Sodium Level: 133 L Potassium Level: 4.3 BUN: 19 H Creatinine Lvl (s): 1.28 H Assessment/Plan 1. UTI (urinary tract infection) 2. Fever 3. GERD - Gastro-esophageal reflux disease UTI continue Rocephin 1 g daily. Patient's urinary symptoms have ceased. She remains hemodynamically stable. Fever patient has had persistent temperature requiring Tylenol. We will check respiratory panel as well as a chest x-ray for completeness. GERD pantoprazole 40 mg daily. DVT prophylaxis: SCDs Labs, diagnostics, and progress notes reviewed as noted in HPI Code Status: Full code Plan of care discussed with patient. All questions answered. Patient verbalizes understanding is agreeable to plan of care. This dictation was performed using voice recognition software and may include grammatical and/or spelling errors. Problem List/Past Medical History Ongoing BMI 35.0-35.9,adult Breast cancer History of breast cancer in female Well adult exam Historical No qualifying data Procedure/Surgical History Mastectomy of left breast: 09/07/18 Laparoscopic cholecystectomy with cholangiography: 06/28/07 Bilateral tubal ligation: 02/1988 section: 1979 Medications Home Medications (4) Active acetaminophen 500 mg oral tablet 1,000 mg = 2 tab(s), PRN, Oral, TID exemestane 25 mg oral tablet 25 mg = 1 tab(s), Oral, qDay omeprazole 40 mg oral delayed release capsule 40 mg = 1 cap(s), Oral, qDay Vitamin D3 600 IU, Oral, Daily Allergies Bactrim Daypro (dizziness) nitrofurantoin (Unknown) Social History Alcohol Use: Never., 02/18/2020 Employment/School Status: Retired., 02/18/2020 Home/Environment Domestic Concerns: None. Living situation: Home/Independent. 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 Appetite Good. Eating Difficulties None. Caffeine intake amount: 2 coffee daily., 02/23/2022 Substance Abuse Use: Never., 02/18/2020 Tobacco Nicotine Use: Former smoker, quit more than 30 days ago., 06/06/2021 Family History Breast cancer: Mother. Colon cancer: Father. Hyperthyroidism: Sister and Brother. Parkinson's disease: Brother. Immunizations pneumococcal 13-valent conjugate vaccine: 0.5 unknown unit (11/13/18) pneumococcal 23-valent vaccine(Pneumovax: 0.5 unknown unit (03/11/20) SARS-CoV-2 (COVID-19) mRNA-1273 vaccine: 50 mcg (12/02/21) SARS-CoV-2 (COVID-19) mRNA-1273 vaccine: 50 mcg (06/17/21) SARS-CoV-2 (COVID-19) mRNA-1273 vaccine: 100 unknown unit (11/10/20) SARS-CoV-2 (COVID-19) mRNA-1273 vaccine: 100 unknown unit (10/13/20) tetanus/diphth/pertuss (Tdap) adult/adol: 0 unknown unit (11/14/14) zoster vaccine, inactivated: 0.5 unknown unit (06/03/21) zoster vaccine, inactivated: 0.5 unknown unit (04/03/21) Code Status Code Status - Ordered -- 06/11/22 17:09:00 EDT, Full Code, Constant Order Digitally Signed by ROLAN LA APRN-AKIL on 06/12/2022 11:43 AM [facility]10-29-2022 HCoV 229E RNA MARY+non-probe Ql (Nph) Not Detected *NA* (06/12/22 10:50 AM) Auto Viro/Sero [id number] NoteHNO ID: [id number] Author: Wendy Springer APRN.AKIL Service: ? Author Type: Nurse Practitioner Type: Progress Notes Filed: 07/03/2021 2:22 PM Note Text: Subjective The history is provided by the patient. No transmitter supervisor was used. Patient presents with: Rash: both hands blistering, possible vaccine reaction? x1 month Chelle Winter is a 70 year old female who presents with a complaint of a rash on the both hand (s) for the past 1 week(s) that is not going away. The patients reports no new exposures, no recent contact with unusual or new material, no recent change in detergents, soap, or shampoo, no other family members with the same rash.. The rash is discribed as erythematous, scaling, papular and pruritic Past treatments Yes. Patient saw pcp, put on clobetasol and has used for 4 days. She also has been using vinegar and alcohol for itching. Does the patient have a personal history of: Seasonal allergies: no Recent travel: no Recent infections: no Beginning a new medication: no Symptoms are triggered by: nothing Other symtoms include none of the folowing: appetite change, weight change, fever, chills, malaise and fatigue Review of Systems Constitutional: Negative for chills and fever. Musculoskeletal: Negative for joint pain and myalgias. Skin: Positive for itching and rash. All other systems reviewed and are negative. Objective Physical Exam Vitals and nursing note reviewed. Pulmonary: Effort: Pulmonary effort is normal. Skin: General: Skin is warm and dry. Findings: Erythema and rash present. Rash is papular, scaling and vesicular. Neurological: Mental Status: She is alert and oriented to person, place, and time. Psychiatric: Mood and Affect: Affect normal. ASSESSMENT/PLAN: 1. Rash - ICD9: 782.1, ICD10: R21 Appears to be irritant dermatitis Continue clobetesol as prescribed by pcp - Decrease use of soap, especially those containing coloring or perfumes. - Oral Benadryl 25-50 mg at bedtime as needed for itching -Moisturize daily with Aquafor, Cetaphil, Cere've, vaniply, or vaseline in tubs -Use mild soap - dove for sensitive skin -Use steroid creams for severe areas only and DO NOT use for longer then 2 weeks. Follow up with dermatology if no improvement Do not use vinegar or alcohol on hands. Diagnosis and treatment plan were discussed and questions were answered to the patient's satisfaction. Pt acknowledged understanding of concepts and follow up plan. Specific signs and symptoms that would indicate the need for higher level of care were discussed in detail warranting prompt ER evaluation. Wendy Springer APRN.[facility]04-19-2021 NoteHNO ID: [id number] Author: Anish Dave Service: ? Author Type: Physician Type: Progress Notes Filed: 12/01/2020 9:37 AM Note Text: Subjective: Patient status post excision of a metastatic breast cancer on her left chest wall. She has been seen by her radiation oncologist who was concerned that she had a seroma and that it might need to be drained prior to having any radiation therapy. Is not noticing any discomfort in the area. Objective:There were no vitals taken for this visit. Incision is healing up quite nicely the pocket that was left looks like it is healed up quite well there is no signs of cellulitis or infection and there is possibly only minimal fluid in there. Assessment: Aftercare Plan: At this point I think that she can proceed with her radiation therapy. I do not think there is anything for me to drain at this time. I do believe there is a discussion to be had with regards to her PET scan showing abnormalities within the ascending colon with a negative colonoscopy. And I have instructed her to get back with Dr. Fall to discuss whether or not she needs to be seen by oncologic surgeon or if a repeat PET scan needs to be performed.[facility]03-26-2021 Note HNO ID: [id number] Author: Marie Scott Service: ? Author Type: Physician Type: Progress Notes Filed: 11/08/2020 10:27 AM Note Text: FOLLOW UP VISIT - POST OP NAME: Chelle Winter [facility] NO.: [id number] DATE OF SERVICE: 11/07/2020 : 1950 REFERRING PHYSICIAN: Dhiraj Lemos MD Chelle is a patient I am following for Dr. Dave. She is status post left chest wall - excision of mass done at [facility] on 10/31/2020. Pathology reveals metastatic breast cancer. 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 Immunohistochemistry ([id number]) supports the above diagnosis. The resection margins are free of tumor. Skeletal muscle tissue is also noted in the specimen and free of tumor. RESULTS: ER (6F11) positive (>95%, moderate intensity) AK (1E2) positive (48%, moderate intensity) Her-2neu (CB11) negative (1+) E-Cad (ECH-6) positive Mammaglobin (31A5) positive GATA3 (L50-823) positive AE1-3 (AE1/AE3/PCK26) positive CK7 (OV-TL12/30) positive CK8 (73lsbdI96) positive CK20 (KS20.8) negative TTF-1 (8G7G3/1) negative Napsin A (Rabbit Polyclonal) negative HepPar (OCh1E5) negative RCC (PN-15) positive, weak CK5-6 (D5 AND 1684) negative P40 (BC28) negative She states that she has minimal discomfort at the site. She denies fevers. She states that they found something intraabdominally on the right side of her abdomen and that Dr. Dave would refer her to a specialist if any surgery was required. I reviewed the CT scan 10/13/2020 and the colonoscopy results on 10/29/2020 and told her that no treatment at this point in time was required. She states that she will discuss this with Dr. He. VITALS: There were no vitals taken for this visit. On examination, the wound is healing well, there is no evidence of infection. Assessment IMPRESSION: Status post excision of left chest wall mass, status post colonoscopy. PLAN: If the patient notes any problems or signs of wound infections, she should contact this clinic immediately. Diagnoses: (C50.919) Metastatic breast cancer (HCC) (primary encounter diagnosis) Return to Clinic: The patient is instructed to follow-up in this clinic as per needed. She is going to follow up with Dr. He early next week to discuss options of treatment. Follow up with Dr. Dave as per instructed. Marie Scott, [facility]03-17-2021 NoteHNO ID: [id number] Author: Guillermina WernerRn) JANAE Cuba Service: ? Author Type: Registered Nurse Type: Nursing Progress Note Filed: 10/29/2020 9:48 AM Note Text: Pt appears comfortable. Passing air rectally. Guillermina Cuba RNSt. [facility]03-08[facility]2021 NoteHNO ID: [id number] Author: Anish Dave Service: ? Author Type: Physician Type: Progress Notes Filed: 10/20/2020 2:51 PM Note Text: Preoperative diagnosis: Abnormal CT scan to left chest Postoperative diagnosis: The same Procedure: Ultrasound-guided needle core biopsy of abnormal CT scan of the left chest Surgeon: Jolie Procedure: Ultrasound of the left chest revealed the lesion in question. This was a hot nodule which was identified on a previous PET CT scan which was done at [facility] on 09/23/2020. Ultrasound was completed which confirmed the nodule in question. I prepped the skin with Betadine. I injected 1% lidocaine plain. Skin patrick was made. Local was injected down to the lesion. Under ultrasound guidance 2 needle core biopsies of this lesion were obtained. Photographs were obtained. Under ultrasound guidance a small titanium clip was applied. Sterile dressings were applied. The patient tolerated the procedure well.[facility]03-08-2021 Note ADDITIONAL PROCEDURES PRESENT Specimen originated from 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 EDK/eec 10/22/[address] Davis has reviewed select slides and concurs with the diagnosis of invasive carcinoma. Immunohistochemical stains for estrogen and progesterone receptors as well as HER2 will be performed and the results reported separately. Vita Lee D.O. (Electronic Signature) SPECIMEN SUBMITTED A: LEFT BREAST NEEDLE CORE BIOPSY ADDITIONAL PROCEDURE(S) BREAST MARKERS WITH HER2 (ERBB2) IHC Date Ordered: 10/24/2020 Date Reported: 10/27/2020 Procedure Results and Interpretation Breast Biomarkers Template RESULTS Estrogen Receptor (ER) Positive (90%) Stain intensity: Strong Internal controls: Present and appropriately reactive External controls: Appropriately reactive Progesterone Receptor (PgR) Positive (20%) Stain intensity: Moderate Internal controls: Present and appropriately reactive External controls: Appropriately reactive HER2 (ERBB2) IMMUNOHISTOCHEMISTRY ASSAY Interpretation: EQUIVOCAL for HER2 (ERBB2) Expression Score: 2+ (FISH for HER2 will be performed and the results reported separately) Percentage of cells with uniform intense complete membrane stainin (reported for 2+ and 3+ scores only) Block Number: A1 Tissue Analyzed: Left breast, invasive carcinoma, core needle biopsy Specimen fixative: 10% neutral buffered formalin Length of fixation: 13 hours and 58 minutes Cold ischemia time: 1 minute Latest ASCO/CAP guidelines for fixation met: yes These results should be interpreted with caution if the above pre-analytical values do not meet the ASCO/CAP guidelines for tissue fixation and handling. Reference Range for Hormone Receptors: Staining of greater than or equal to 1% of the tumor cells is considered positive. Reference Ranges for HER2 (ERBB2) immunohistochemistry: Positive (3+): Complete, intense circumferential membrane staining in >10% of tumor cells Equivocal (2+): Weak to moderate complete membrane staining observed in >10% of tumor cells Negative (1+): Incomplete, faint membrane staining in >10% of tumor cells Negative (0): No staining or incomplete, faint membrane staining in 10% of tumor cells Consideration of follow-up testing for HER2 (ERBB2) status by fluorescence in situ hybridization (FISH) for all equivocal (2+) results is recommended and will be ordered as a reflex test if FISH was not a testing methodology already employed. METHODS Estrogen Receptor: Food and Drug Administration (FDA) cleared: [place] Primary Antibody: SP1 Progesterone Receptor: FDA cleared: [employer] [place] Primary Antibody: IE2 HER2 (ERBB2) by IHC: FDA cleared: [place], [place] Primary Antibody: 4B5 The hormone receptor tests were performed and reported according to Ramona KH, [place] HAMMH, Pratik M, Telma SE, Leonora LA, Nichole PL, Shaan DF, Nolvia SR, Gertrude M, Jose A J, Lisa CM, Yordy MM, Kelechi DL, Chase WF, Sara EE, Polo L, Jennifer G, Soco TF, Bethany PAZ, Lucita AC. Estrogen and Progesterone Receptor Testing in Breast Cancer: ASCO/CAP Guideline Update. J Clin Oncol. 2019Dec 02;38(12):7337-2032. doi: 10.1200/JCO.19.22005. Ep2019Aug 27. PMID: [id number]. The hormone receptor assays have been internally validated on decalcified tissues Estrogen and progesterone receptor results are valid if tissue was processed according to ASCO/CAP guidelines. Antibody and Detection System: [place] [employer]'s Pathway anti-HER2 rabbit monoclonal antibody (clone 4B5), [place] anti-estrogen receptor rabbit monoclonal antibody (clone SP1) and [place] anti-progesterone receptor rabbit monoclonal antibody (clone IE2) detected with the [place] iView Detection System (indirect biotin streptavidin detection); [employer], [place], [place]. Control slides: Cell line controls with high, equivocal, low and negative HER2 protein expression, along with known positive control tissue as well as the patient's tissue are evaluated for HER2 expression. A separate slide of the patient's tissue is similarly processed without antibody (negative control); slides were reviewed and showed appropriate staining. The HER2 immunohistochemistry assay was developed, validated, scored, and reported in accordance with the guidelines approved by the [place] [employer] Oncologists and the College of (more content not included)... [facility]03-08-2021 NoteHNO ID: [id number] Author: Ángela Fisher RN Service: ? Author Type: ? Type: Progress Notes Filed: 10/20/2020 2:51 PM Note Text: UNIVERSAL PROTOCOL / SAFETY CHECKLIST Procedure to be performed: ultrasound guided needle core left breast biopsy Sign in Communication: Completed Time Out: Team Confirms the Correct Patient, Correct Procedure, Correct Site and Site Marking, Correct Position (if applicable), Prep and Dry Time (if applicable). Time: 1420 Affirmation of Time Out: YES Sign Out Discussion: Completed Ángela Fisher RNSt. [facility]03-04-2021 NoteHNO ID: [id number] Author: Anish Dave Service: ? Author Type: Physician Type: Progress Notes Filed: 10/16/2020 2:40 PM Note Text: HISTORY AND PHYSICAL Chelle Winter 1950 REFERRING PHYSICIAN: Dhiraj Lemos,* CHIEF COMPLAINT: Follow Up HPI: The patient is a 70 year old female referred for endoscopy. The patient is a 70 year old female with a complaint of An abnormal PET scan.-2018 I performed a left-sided mastectomy on this patient. She was ER/AK positive HER-2/judah negative tumor size was 15 mm. Patient's PET scan which was completed on 09/23/2020 showed an increased glucose metabolism identified in the left anterior chest wall but it did not fill strict criteria for a viable neoplasia. In addition there was another area of the abdomen which they recommended that the patient undergo a CT scan of the abdomen and pelvis with IV and p.o. contrast. Patient states that she had a colonoscopy on March 04, 2020 and this was negative. ? The patient has not had a CT scan of her abdomen and pelvis nor has she had an ultrasound of the chest wall to identify the area that was seen on the PET/CT.. Patient has had a CT scan of her abdomen and pelvis with IV and p.o. contrast which did not reveal any significant abnormalities however they recommended a repeat colonoscopy be performed. In addition she has had an ultrasound of the left chest wall which which did reveal the abnormality in question. I have discussed this with the radiologist and I believe the best thing to do for this is a ultrasound-guided needle core biopsy of it. PAST MEDICAL HISTORY Diagnosis Date - BENIGN HYPERTENSION - ESOPHAGEAL REFLUX PAST SURGICAL HISTORY Procedure Laterality Date - BREAST BIOPSY right benign (3) - DELIVERY ONLY 3 times Current Outpatient Medications Medication Sig - tamoxifen (NOLVADEX) 20 mg tablet Take 20 mg by mouth once daily. - NEXIUM 20 MG CAP Take one(1) capsule daily. - FORMALDEHYDE 10 % TOPICAL SOLN Use 5% Formaldehyde (diluted to 5%) for 30min soaks of plantar feet (and palmar hands optional) qday to qoday as directed and tolerated for tx of warts on plantar feet and palmar hands for 2-4wks, then take break using 40% Salicylic Acid plasters (Mediplast) for tx of thicker and or resistant warts - ALDARA 5 % TOPICAL PACKET Apply to warts selectively qod to qd in evening with occlusion as directed and tolerated for more resistant and/or severe warts on feet and hands. No current facility-administered medications for this visit. ALLERGIES: Naprosyn [Naproxen] PERSONAL HISTORY: Social History Tobacco Use - Smoking status: Current Every Day Smoker Substance Use Topics - Alcohol use: No - Drug use: Not on file FAMILY HISTORY: No family history on file. REVIEW OF SYSTEMS: General: The patient denies fatigue, denies weight loss, denies weight gain, denies feeling hot, and denies feelings of cold. Eyes: The patient denies glaucoma, denies eye injury/surgery, does not wear glasses or contacts. Ear/Nose/Throat: The patient denies allergies, denies hayfever, denies ear infections, and denies bloody noses. Cardiovascular: The patient denies chest pain, denies heart disease, denies high blood pressure,denies cardiac stent, denies prior heart attack, denies irregular heart beat, denies high cholesterol, denies poor circulation, denies heart failure, other cardiac issues, denies claudication, denies cold feet, denies peripheral arterial stent. Respiratory: The patient denies tuberculosis, denies pneumonia, denies frequent cough, denies pulmonary embolism, denies shortness of breath, and denies coughing up blood. Gastrointestinal: The patient denies difficulty swallowing, denies acid reflux, denies ulcers, denies vomiting, denies jaundice/hepatitis, denies gallbladder problems, denies black or tarry stools, denies hemorrhoids, denies bleeding from rectum, denies diverticulitis, denies constipation, denies diarrhea, denies loss of stool control, and denies hernias. Kidney/Bladder: The patient denies kidney stones, denies urine infections, and denies bloody urine. Skin: The patient denies a history of skin cancer, denies bleeding/changing moles, and denies a history of skin rash. Neurologic: The patient denies a history of epilepsy/convulsions, denies headaches, denies head/spinal injuries, and denies stroke/TIA. Psychiatric: The patient denies psychiatric medications, denies depression, and denies voices, denies substance abuse. Endocrine: The patient denies thyroid disorders, denies diabetes, and denies hormonal problems. Hematologic: The patient denies a history of bruising, denies bleeding, and denies anemia, denies blood clots. Infections: The patient denies a history of measles and mumps, denies rheumatic fever, and denies sexually transmitted diseases. Musculoskeletal: The patient denies back pain/injury, denies back pr (more content not included)...[facility]03-01-2021 NoteHNO ID: [id number] Author: Anthony Aparicio (Tech) Service: ? Author Type: Digital Campaign Specialist Type: Progress Notes Filed: 10/13/2020 12:30 PM Note Text: Radiology Service Progress Note DATE OF SERVICE: October 13, 2020 TIME: 12:29 PM PATIENT IDENTITY VERIFICATION COMPLETED USING TWO (2) STANDARD IDENTIFIERS: Name and Date of confirmed by patient verbally. FALL SCREENING: Has the patient had 2 falls in the last year or 1 fall with injury or currently using an Ambulatory Assistive Device (Walker, Cane, Wheelchair, Crutches, etc.)? No PATIENT GENDER DATA: Female. status: : No status: NO. PATIENT RELEVANT IMPLANT DATA REVIEWED: Yes ALLERGIES: Reviewed and unchanged CONTRAST ALLERGY: NO. EXAM: CT -CONTRAST INDUCED NEPHROPATHY RISK FACTORS: Patient age > 60 years CREATININE: Creatinine Date Value Ref Range Status 10/13/2020 0.92 0.58 - 0.96 mg/dL Final eGFR-All Other Races Date Value Ref Range Status 10/13/2020 >60 . Final Comment: eGFR (Estimated GFR) Units of measure: mL/min/1.73 meters squared eGFR is derived from the reexpressed MDRD Study equation using the following parameters: serum creatinine, age, gender and race. The creatinine assay has been calibrated to be traceable to IDMS. An eGFR <60 mL/min/1.73m2 for >3 months is consistent with chronic kidney disease. Refer to KDOQI guidelines for clinical interpretation. In patients with unstable renal function, e.g. those with acute kidney injury, the eGFR may not accurately reflect actual GFR. eGFR- Date Value Ref Range Status 10/13/2020 >60 Final P.O.C.T. RESULTS: POC done: Yes, See Lab Tab October 13, 2020 TREATMENT: N/A PERIPHERAL IV DATA: Ambulatory: A peripheral IV was started in the Right antecubital site with a Angio cath: 22 gauge. RADIOLOGY DEPARTMENT: CT; Exam(s) Completed: Abdomen/Pelvis SIGNATURE: Anthony Bello PATIENT NAME: Chelle Winter DATE: October 13, 2020 TIME: 12:29 [facility]02-15-2021 NoteHNO ID: [id number] Author: Anish Dave Service: ? Author Type: Physician Type: Progress Notes Filed: 09/29/2020 11:22 AM Note Text: HISTORY AND PHYSICAL Chelle Winter 1950 REFERRING PHYSICIAN: MD Caesar CHIEF COMPLAINT: PET scan results HPI: The patient is a 70 year old female with a complaint of An abnormal PET scan.-2018 I performed a left-sided mastectomy on this patient. She was ER/AK positive HER-2/judah negative tumor size was 15 mm. Patient's PET scan which was completed on 09/23/2020 showed an increased glucose metabolism identified in the left anterior chest wall but it did not fill strict criteria for a viable neoplasia. In addition there was another area of the abdomen which they recommended that the patient undergo a CT scan of the abdomen and pelvis with IV and p.o. contrast. Patient states that she had a colonoscopy on March 04, 2020 and this was negative. The patient has not had a CT scan of her abdomen and pelvis nor has she had an ultrasound of the chest wall to identify the area that was seen on the PET/CT.. The patient is being seen by me today at the request of Dr. Dhiraj Lemos MD for my opinion and advice regarding Abnormal gastrointestinal pet scan (primary encounter diagnosis) Abnormal positron emission tomography (pet) scan Abnormal findings on diagnostic imaging of other parts of digestive tract. PAST MEDICAL HISTORY Diagnosis Date - BENIGN HYPERTENSION - ESOPHAGEAL REFLUX PAST SURGICAL HISTORY Procedure Laterality Date - BREAST BIOPSY right benign (3) - DELIVERY ONLY 3 times Current Outpatient Medications Medication Sig - tamoxifen (NOLVADEX) 20 mg tablet Take 20 mg by mouth once daily. - iv contrast (will be provided with radiology test) CT ABD/PEL -Inject, intravenously, once for 1 dose.No IV access, insert saline lock prior to the beginning of sedation, infusion, injection of imaging exam. Discontinue saline lock post exam. If Pt. has a central line or IVAD, may access for administration according to line specific nursing protocol. Once exam is complete flush line and de-access according to line specific nursing protocol in the CT contrast administration guidelines link. - enteric contrast (will be provided with radiology test) For CT ABD/PEL W IVCON Routine order Administer, As Directed One Time Only, via Oral, Rectal, both Oral and Rectal, Enteric Tube, Stoma or Indwelling Catheter, Enteric Contrast as designated per enteric contrast guidelines - NEXIUM 20 MG CAP Take one(1) capsule daily. - FORMALDEHYDE 10 % TOPICAL SOLN Use 5% Formaldehyde (diluted to 5%) for 30min soaks of plantar feet (and palmar hands optional) qday to qoday as directed and tolerated for tx of warts on plantar feet and palmar hands for 2-4wks, then take break using 40% Salicylic Acid plasters (Mediplast) for tx of thicker and or resistant warts - ALDARA 5 % TOPICAL PACKET Apply to warts selectively qod to qd in evening with occlusion as directed and tolerated for more resistant and/or severe warts on feet and hands. No current facility-administered medications for this visit. ALLERGIES: Naprosyn [Naproxen] PERSONAL HISTORY: Social History Tobacco Use - Smoking status: Current Every Day Smoker Substance Use Topics - Alcohol use: No - Drug use: Not on file FAMILY HISTORY: No family history on file. REVIEW OF SYMPTOMS: The review of systems data was entered by the nurse and reviewed by ok Nursing Notes: Tamanna Landrum LPN 09/29/2020 10:25 AM Signed REVIEW OF SYSTEMS: General: The patient denies fatigue, denies weight loss, denies weight gain, denies feeling hot, and denies feelings of cold. Eyes: The patient denies glaucoma, denies eye injury/surgery, does not wear glasses or contacts. Ear/Nose/Throat: The patient denies allergies, denies hayfever, denies ear infections, and denies bloody noses. Cardiovascular: The patient denies chest pain, denies heart disease, denies high blood pressure,denies cardiac stent, denies prior heart attack, denies irregular heart beat, denies high cholesterol, denies poor circulation, denies heart failure, other cardiac issues, denies claudication, denies cold feet, denies peripheral arterial stent. Respiratory: The patient denies tuberculosis, denies pneumonia, denies frequent cough, denies pulmonary embolism, denies shortness of breath, and denies coughing up blood. Gastrointestinal: The patient denies difficulty swallowing, denies acid reflux, denies ulcers, denies vomiting, denies jaundice/hepatitis, denies gallbladder problems, denies black or tarry stools, denies hemorrhoids, denies bleeding from rectum, denies diverticulitis, denies constipation, denies diarrhea, denies loss of stool control, and denies hernias. Kidney/Bladder: The patient denies kidney stones, denies urine infections, and denies bloody urine. Skin: The patient denies a history of skin cancer, saran (more content not included)...[facility] Future Appointments Appointment Date:06/17/2021 01:00:00 PM Scheduled Provider: Location:[facility] ([place], [place]) Appointment Type:COVID AMB VACCINE Appointment Date:08/31/2021 11:00:00 AM Scheduled Provider: Location:[facility] Appointment Type:MA Mammogram Screening Bilateral w/ Avel Diagnostic Tests Pending * Urine Culture 06/06/21 Future Scheduled Tests Radiology* MA Mammo Screening Bilateral w/ Avel 08/31/21 * MA Mammo Screening Right w/ Avel 08/26/20 [facility] Evaluation + Plan note Future Appointments Appointment Date:02/23/2022 11:00:00 AM Scheduled Provider:REINALDO CARRILLO Location:[facility] ([place], [place]) Appointment Type:PC Wellness Primetime Enhanced [facility] Hospital course Narrative No data available for this section [facility] Hospital Discharge instructions No data available for this section [facility] Progress note No data available for this section [facility] Summary Purpose Family History No Family History Records Found No data available for this section No data available for this section No Family History Records Found Advance Directives No Advanced Directives Records FoundNo Advanced Directives Records Found Additional Source Comments Source Comments (unrecognize d section and content) In the event this informatio n is protected by the Federal Confidentiality of Alcohol and Drug Abuse Patient Records regulations: The Federal rules restrict any use of the information to criminally investigate or prosecute any alcohol or drug abuse patient.[facility] INFORMATION SOURCE (unrecogn ized section and content) DATE CREATED AUTHOR AUTHOR'S ORGANIZ ATION 10/11/2023 [facility] [place] ([place]) Care Team (unrecognized sect ion and content) Personnel Name: DHIRAJ LEMOS MD Address: [address] [place] [address] Care Team Personnel Name: REINALDO CARRILLO Position: P4 Advanced Missile Technician Member Role: Primary Care Physician Address: Address: [address] [place] [address]- [place] Name: RONALD GLORIA PA-C Position: Advanced Missile Technician Member Role: Orthopaedist Address: Address: [facility] [address] [place] [address]- [place] Name: Olivia Logan [facility] Position: Quality Review Member Role: Laborer [employer] Name: NOVA HE MD Member Role: Oncologist Address: Address: [address] [place], [place] [id number] Name: LAILA TAPIA DO Member Role: Radiation Oncologist Address: Address: [address] [facility]- [place] [address]- Care Team Related Persons Name: JASON WINTER Care Team Personnel Name: REINALDO CARRILLO Position: P4 Advanced Missile Technician Member Role: Primary Care Physician Address: Address: [address] [place] [address]- [place] Name: RONALD GLORIA PA-C Position: Advanced Missile Technician Member Role: Orthopaedist Address: Address: [facility] [place] [address] [place] [address]- [place] Name: Olivia Logan Position: Quality Review Member Role: Laborer [employer] Name: NOVA HE MD Member Role: Oncologist Address: Address: [address] [place] [address]- Name: LAILA TAPIA DO Member Role: Radiation Oncologist Address: Address: [address] [facility] [place] [address]- Care Team Related Persons Name: FRANCES WINTER Address: [address] [phone] Name: JASON WINTER Care Team (unrecognized sect ion and content) Care Team Personnel Name: REINALDO CARRILLO Position: P4 Advanced Practice Nurse Member Role: Primary Care Physician Address: Address: [address] [place] [address]- [place] Name: RONALD GLORIA PA-C Position: Physician [employer]of [employer] Tile Setter Member Role: Orthopaedist Address: Address: [facility] [place] [address] [place] [address]- [place] Name: NOVA HE MD Member Role: Oncologist Address: Address: [address] [place] [address]- [place] Name: TIMO OLIVA MD Position: ED Physician Address: Address: [facility] [address] [place] [address]- [place] Name: Ruth Boss RN Position: RN Member Role: ED RN Care Team Related Persons Name: JASON WINTER Care Team Personnel Name: REINALDO CARRILLO Position: P4 Advanced Practice Nurse Member Role: Primary Care Physician Address: Address: [address] [place] [address] Name: RONALD GLORIA PA-C Position: Physician [employer]of [employer] Tile Setter Member Role: Orthopaedist Address: Address: [facility] [place], [place] [address] Name: Olivia Logan Position: Quality Review Member Role: Laborer [employer] Name: NOVA HE MD Member Role: Oncologist Address: Address: [facility] [place], [place] [address] Name: LAILA TAPIA DO Member Role: Radiation Oncologist Address: Address: [address] [facility] [address] Care Team Related Persons Name: JASON WINTER Care Team Personnel Name: REINALDO CARRILLO Position: P4 Advanced Practice Nurse Member Role: Primary Care Physician Address: Address: [address] [place] [address] Name: RONALD GLORIA PA-C Position: Physician [employer]of [employer] Tile Setter Member Role: Orthopaedist Address: Address: [facility] [place] [id number] Name: Olivia Logan Position: Quality Review Member Role: Laborer [employer] Name: NOVA HE MD Member Role: Oncologist Address: Address: [address] [place] [id number] Name: LAILA TAPIA DO Member Role: Radiation Oncologist Address: Address: [address] [facility] [place] [id number] Care Team Related Persons Name: JASON WINTER FOR RECORDS PERTAINING TO PATIENTS WHO ARE OR HAVE BEEN ENROLLED IN A CHEMICAL DEPENDENCY/SUBSTANCEABUSE PROGRAM, SOME INFORMATION MAY BE OMITTED. This clinical summary was aggregated from multiple sources. Caution should be exercised in using it in the provision of clinical care. This summary normalizes information from multiple sources, and as a consequence, information in this document may materially change the coding, format and clinical context of patient data. In addition, data may be omitted in some cases. CLINICAL DECISIONS SHOULD BE BASED ON THE PRIMARY CLINICAL RECORDS. [facility]. provides no warranty or guarantee of the accuracy or completeness of information in this document.
[2023-10-12] MEDS: Lactated Ringers 1,000 ML 15 ML IV (07:44)
--- NOTE | 2023-10-12 08:00 | NM_ITS ---
PROCEDURE: NUCLEAR MEDICINE Injection Pilot Station Node - RIGHT breast(s). REASON FOR EXAM: Female, 73 years old. Right breast cancer. TECHNIQUE: Pilot Station node localization using radionuclide methods of the RIGHT breast(s) was performed following subcutaneous administration of 1.1 mCi of of sulfur colloid Tc-99m. COMPARISON STUDIES : NM - None. CR - Not available for review at this time. CT - Not available for review at this time. MR - Not available for review at this time. US - Not available for review at this time. FINDINGS: 1.1 mCi of technetium labeled sulfur colloid was injected subcutaneously in 4 equal aliquots in the right periareolar region. NM/Lymph Node Injection Only IMPRESSION: Periareolar subcutaneous injection of 1.1 mCi of technetium labeled sulfur colloid for sentinel node imaging. Electronically Signed: Ricco Dominguez MD at 11:52 EST ,
--- NOTE | 2023-10-12 08:44 | PCM.HP.BLA ---
History and Physical Date of Admission: 10/12/23 Intake Vital Signs 09/22/23 10:03 Height 5 ft 2 in Weight: 204 lb 2 oz BMI 37.3 BP 140/84 H Blood Pressure Location Rt brachial Position Sitting Respiration 18 Pulse 88 Pulse Source Monitor Temp 97.4 F L Temp Source Temporal Pulse Oximetry (%) 98 Oxygen Delivery Method room air Intake Visit Reasons: REVIEW BIOPSY RESULTS Chief Complaint: BIRADS 4 Right Breast Allergies nitrofurantoin [From Macrobid] Allergy (Mild, Verified 10/05/23 10:07) other naproxen Allergy (Verified 10/05/23 10:07) Other sulfamethoxazole [From Bactrim] Allergy (Verified 10/05/23 10:07) Other Sulfa (Sulfonamide Antibiotics) Adverse Reaction (Verified 10/05/23 10:07) weakness trimethoprim [From Bactrim] Adverse Reaction (Verified 10/05/23 10:07) Other Medications omeprazole 40 mg capsule,delayed release 40 mg PO DAILY REFLUX 09/05/18 [History Confirmed 10/05/23] exemestane 25 mg tablet 25 mg PO DAILY CANCER 10/04/23 [History Confirmed 10/05/23] PFSH Medical History Breast cancer (~08/2018) Cancer delivery delivered Elevated serum globulin level Former smoker Gastric reflux GERD (gastroesophageal reflux disease) High cholesterol History of IBS History of ulceration IBS (irritable bowel syndrome) Metastatic breast cancer Ovary removal, prophylactic Wears glasses Surgical History History of carpal tunnel surgery History of colonoscopy History of conization of cervix History of left mastectomy History of oophorectomy, unilateral History of right breast biopsy Hx laparoscopic cholecystectomy Tubal ligation status Family History Mother Breast cancer Heart disease Father Colon cancer Aunt Breast cancer 5 with breast cancer Heart disease Social History Smoking Status: Former smoker alcohol intake: never substance use type: does not use caffeine: Yes what type of physical activity do you participate in: walking seatbelt use: always do you feel safe at home: Yes additional social history: Aguilar- both are retired HPI HPI HPI: Patient is a 73-year-old female here to follow-up for her right breast cancer. Patient had core needle biopsy which was found to be a triple negative breast cancer on the right. ROS General General: Yes breast cancer; No weight change, appetite, fatigue, colon cancer or weakness HEENT HEENT: No difficulty swallowing, eye injury, eye surgery, swollen glands or hoarseness Endo Endocrine: No thyroid disease, diabetes mellitus, thyroid cancer, Hair loss, heat intolerance or cold intolerance Skin Skin: No rash or changing moles Breast Breast: Yes abnormal mammogram and abnormal US; No left breast lump, right breast lump, nipple discharge, breast pain or breast enlargement Additional Details: Right Breast Lymphedema left arm Musc Musculoskeletal: No back problems, arthritis, rheumatoid arthritis, gout or joint pain Cardio Cardiovascular: No murmur, pacemaker, heart disease, atrial fibrillation, high blood pressure, heart attack, heart stent, palpitations, shortness of breat with exertion or chest pain Psych Psychiatric: No depression, anxiety or hearing voices Resp Respiratory: No shortness of breath, No sleep apnea, No cough, No COPD, No asthma, No emphysema and No wheezing Gastro Gastrointestinal: No abdominal pain, No nausea or vomiting, No diarrhea, No constipation, No blood in stool, No acid reflux, No hemorrhoids, No ulcers, No gallbladder problem and No black,tarry stools Fabricio Hematologic: No blood thinners, No blood disorders, No bleeding, No anemia and No blood clots Neuro Neurologic: No system reviewed and no additional complaints, except as documented, No as per HPI, No abnormal gait, No abnormal hearing, No abnormal movements, No abnormal speech, No behavioral changes, No burning sensations, No confusion, No convulsions, No disequilibrium, No dizziness, No localized weakness, No frequent falls, No headache(s), No lack of coordination, No loss of vision, No memory loss, No numbness, No other visual disturbances, No radicular pain, No restless legs, No sensory deficit, No syncope, No tingling, No tremor(s), No weakness and No other Exam Const General: cooperative Orientation: alert and oriented x3 HENMT Head: normal to inspection Neck Neck: normal visual inspection and full ROM Chest Chest palpation & inspection: normal inspection of the chest Resp Effort & Inspection: normal respiratory effort Auscultation: clear to auscultation bilaterally Cardio Rate: regular rate Rhythm: regular rhythm GI Inspection: non-distended Palpation: soft and nontender Skin General: no rashes or lesions noted Neuro General: patient alert and patient oriented x3 Extrem General: full ROM Psych Appearance: grossly normal Mental Status: mental status grossly normal Assessment and Plan Assessment and Plan (1) Breast cancer, right: Status: Acute Qualifiers: Breast location: upper outer quadrant of breast Estrogen receptor status: negative Patient sex: female Qualified Code(s): C50.411 - Malignant neoplasm of upper-outer quadrant of right female breast; Z17.1 - Estrogen receptor negative status [ER-] Plan: The patient has a triple negative breast cancer in the right breast. The patient has had breast cancer in the left with a recurrence. She would like mastectomy on the right to match the left. I discussed right simple mastectomy with her in detail as well as the risks including not limited to bleeding, infection, seroma formation, nerve injury. I also discussed performing a right sentinel lymph node biopsy. I discussed with her that since it is triple negative if any of her nodes were positive on frozen section I would recommend pursuing axillary dissection. I discussed this with her in detail as well and discussed the risks of lymphedema and nerve injury and infection hematoma of the axilla. Patient understands all the risks. I also discussed blue dye injection with her. Jono Jaffe MD Pager: [facility] [address] [place] [address], [address] [place] [address] Office: I have examined the patient and the H&P has been reviewed. There are no clinical changes since date of exam.
[2023-10-12] MEDS: Cefazolin 2 GM in 0.9% Normal Saline (100mL Bag) 100 ML IV (09:50)
[2023-10-12] MEDS: Isosulfan Blue 1% 5 ML Vial (10:10)
[2023-10-12] MEDS: 0.9% Normal Saline (Pres. free 10 ML Vial (10:10)
[2023-10-12] MEDS: Bupivacaine Mpf 0.5% 30 ML VIAL (11:43)
--- NOTE | 2023-10-12 12:06 | OP.PCM_ITS ---
Report of Operation Date of Procedure: 10/12/23 Pre-Operative Diagnosis: Right breast triple negative cancer lower outer quadra nt Post-Operative Diagnosis: Same Surgery/Procedure Performed:: 1. Right axillary lymph node biopsy 2. Right simple mastectomy 3. Injection of blue dye Type of Anesthesia: General/Regional Specimen's removed: Right axillary lymph nodes and right breast Drains: ESTEBAN to bulb suction Estimated Blood Loss (mL): 50 Description of Procedure: Patient was brought back to the operating room and general anesthesia was river carlos. The right breast and axilla were prepped and draped in usual sterile fashion. Next 5 cc of Lymphazurin was injected under the retroareolar space as well as 5 cc of saline following it and then it massaged in place. Next the breast and axilla were prepped and draped again in the sterile fashion. An incision was marked and the lateral side of the incision was incised and electrocautery was used to raise flaps on the superior and inferior edge. Next dissection was carried superiorly to the axilla. Once the axilla was encountered it was dissected and several lymph nodes were identified and sent for pathology. There was only one that was blue but the others were slightly enlarged. After the lymph nodes were removed there was good hemostasis and the ex was packed with wet gauze. Superiorly the skin flap was raised all the way to the scapula and then inferiorly the flap was raised down to the inframammary crease. The breast was taken off of the pectoral muscle including the pectoral fascia from medial to lateral. Care was taken to allow for extra tissue around the tumor in the right lower outer quadrant. The specimen was sent off. The lymph nodes came back as no cancer. Next the area is irrigated suctioned dry. Hemostasis was obtained using electrocautery. Next a 15 Yoruba round drain was placed through the lateral chest wall and into the breast area and placed over the pectoral muscle and into the axilla. Surgicel powder was sprayed around the pectoral area and then the incision was closed with interrupted 3-0 Vicryl sutures. The skin was closed with a running 4-0 Monocryl suture. Local anesthetic was injected into the incision. The drain was sutured in place using 3-0 nylon and placed to suction. Dermabond glue was placed over the incision. Patient was awoken and taken to PACU in stable condition and tolerated the procedure well Admit VTE Documentation VTE Mechan Device Prophylaxis: SCD's
[2023-10-12] MEDS: Acetaminophen 325 MG Tablet 650 MG PO ×2 (13:52→20:33)
[2023-10-12] MEDS: 0.9% Normal Saline (1000mL) 1,000 ML 60 ML IV (16:24)
--- NOTE | 2023-10-12 16:30 | EX.PCM.DISCH ---
Discharge Instructions Procedure Breast Surgery Diet Discharge Diet: No restrictions Activity Discharge Activity: May Not Drive (for 2-3 days or while taking narcotic pain medications.) May shower in (days): 1 Lifting Restrictions: 15 lbs for 1 week Dressing / Incision Call your doctor if your incision/area has: Continuous Slow Oozing, Sudden Increased Bleeding, Increased Pain/ Swelling, Increased Redness, Foul Smelling Discharge and Swelling at the incision site Call your doctor if you observe: Fever of 101 or Higher Suture Line Care: Avoid Pulling/Pushing and Avoid Pinching/Bending Cleanse incision/area with: Soap & Water Additional Dressing/Incision Instructions:: Remove bulky dressing tomorrow Follow Up Care Please Follow Up With: Jono Jaffe MD When: Please call to schedule 2 week follow up appointment. [phone] Test Results: Test results from this visit will be discussed in further detail at your follow-up appointment, if applicable. Discharge Plan Admission Admit Date/Time: 10/12/23 12:03 Attending Provider: Jono Jaffe Primary Care Provider: Eb Galo NP Discharge Orders/Prescriptions Prescriptions: New acetaminophen 325 mg Tablet 650 mg PO Q4H PRN PRN (Reason: Pain 1-10 Or Fever) Qty: 0 0RF oxycodone 5 mg Tablet 5 - 10 mg PO Q4H PRN PRN (Reason: Pain Score 4-10) 5 Days Qty: 30 0RF Continued omeprazole 40 MG capsule,delayed release(DR/EC) 40 mg PO DAILY exemestane 25 mg tablet 25 mg PO DAILY Rx Instructions: TAKE 1 TABLET BY MOUTH EVERY DAY AFTER A MEAL Referrals / Follow Up: Eb Galo NP, [facility] [Primary Care Provider] - Disposition Disposition (needs filled in before D/C Order can be placed): Home, Self Care
[2023-10-12] MEDS: oxyCODONE 5 MG Tablet PO ×2 (17:56→22:42)
--- OUTSIDE RECORDS SUMMARY | 2023-10-13 00:39 | XMS RPT_ITS | CCD ---
Author Name Unknown Address [address] [place] [address] Organization [facility] Care Team Providers Care Career Technical Education Teacher Name Role Phone Dhiraj Lemos Primary Care Provider 1( 30) SHUKRI CALLAWAY, DHIRAJ Rajput Primary Care Physician ([phone] LORENA CUBAN-ECONOMIC DEVELOPMENT DIRECTOR, REINALDO Primary Care Physician ([phone]) LORENA ROBERTS, REINALDO Primary Care Physician ([phone]) LORENA APONTE-ECONOMIC DEVELOPMENT DIRECTOR, REINALDO Primary Care Physician ([phone]) HAMIDATES PREFORMS LAMINATOR-ECONOMIC DEVELOPMENT DIRECTOR, REINALDO Attending Unavailabl e BALTES PREFORMS LAMINATOR-ECONOMIC DEVELOPMENT DIRECTOR, REINALDO Primary Care Unavailabl e BALTES PREFORMS LAMINATOR-ECONOMIC DEVELOPMENT DIRECTOR, REINALDO Attending Unavailabl e BALTES PREFORMS LAMINATOR-ECONOMIC DEVELOPMENT DIRECTOR, REINALDO Primary Care Unavailabl e BALTES PREFORMS LAMINATOR-ECONOMIC DEVELOPMENT DIRECTOR, REINALDO Attending Unavailabl e BALTES PREFORMS LAMINATOR-ECONOMIC DEVELOPMENT DIRECTOR, REINALDO Primary Care Unavailabl e Allergies Allergy Classification Reported Allergen(s) Allergy Type Date of Onset Reaction(s) Facility (1 source) Naproxen Drug Allergy 7 Intolerance [facility] (9 sources) oxaprozin; Translations: [oxaprozin] Drug Allergy dizziness [facility] Work Phone: (8 sources) NITROFURANTOIN, MACROCRYSTALS / Nitrofurantoin, Monohydrate; Translations: [nitrofurantoin] Drug Allergy Unknown (qualifier value) [facility] Work Phone: (5 sources) Sulfamethoxazole / Trimethoprim; Translations: [sulfamethoxazole-tr imethoprim] Drug Allergy [facility] Medications Current Medications Medication Drug Class(es) Dates [...] BID, # 15 gram(s), 3 Refill(s), Pharmacy: [facility]/pharmacy #[id number], Cream, 158, cm, 06/29/21 15:40:00 EST, Height, [...] 07:45-0400 Body temperature 98.24 [degF] ROLAN ROBERTS [facility] 06-13-2022 07:45-0400 Diastolic blood pressure 80 mm[Hg] ROLAN ROBERTS [facility] 06-13-2022 07:45-0400 Heart rate 96 /min ROLAN ROBERTS [facility] 06-13-2022 07:45-0400 Reason For Taking VItal Signs ROLAN KENNEN PREFORMS LAMINATOR-ECONOMIC DEVELOPMENT DIRECTOR [facility] 06-13-2022 07:45-0400 Respiratory rate 18 /min ROLAN ROBERTNEN PREFORMS LAMINATOR-ECONOMIC DEVELOPMENT DIRECTOR [facility] 06-13-2022 07:45-0400 Systolic blood pressure 121 mm[Hg] ROLAN KENNEN PREFORMS LAMINATOR-ECONOMIC DEVELOPMENT DIRECTOR [facility] 06-13-2022 05:46-0400 Body temperature 98.24 [degF] ROLAN ROBERTNEN PREFORMS LAMINATOR-ECONOMIC DEVELOPMENT DIRECTOR [facility] 06-13-2022 05:46-0400 Diastolic blood pressure 78 mm[Hg] ROLAN KENNEN PREFORMS LAMINATOR-ECONOMIC DEVELOPMENT DIRECTOR [facility] 06-13-2022 05:46-0400 Heart rate 98 /min ROLAN ROBERTNEN PREFORMS LAMINATOR-ECONOMIC DEVELOPMENT DIRECTOR [facility] 06-13-2022 05:46-0400 Respiratory rate 18 /min ROLAN KENNEN PREFORMS LAMINATOR-ECONOMIC DEVELOPMENT DIRECTOR [facility] 06-13-2022 05:46-0400 Systolic blood pressure 141 mm[Hg] ROLAN ROBERTNEN PREFORMS LAMINATOR-ECONOMIC DEVELOPMENT DIRECTOR [facility] 06-13-2022 02:45-0400 Body temperature 97.7 [degF] ROLAN ROBERTNEN PREFORMS LAMINATOR-ECONOMIC DEVELOPMENT DIRECTOR [facility] 06-12-2022 23:15-0400 Diastolic blood pressure 83 mm[Hg] ROLAN KENNEN PREFORMS LAMINATOR-ECONOMIC DEVELOPMENT DIRECTOR [facility] 06-12-2022 23:15-0400 Heart rate 100 /min ROLAN KENNEN PREFORMS LAMINATOR-ECONOMIC DEVELOPMENT DIRECTOR [facility] 10-29-2022 23:15-0400 Respiratory rate 18 /min ROLAN LA PREFORMS LAMINATOR-ECONOMIC DEVELOPMENT DIRECTOR [facility] 06-12-2022 23:15-0400 Systolic blood pressure 156 mm[Hg] ROLANLEAH ARRIOLAN PREFORMS LAMINATOR-ECONOMIC DEVELOPMENT DIRECTOR [facility] 06-12-2022 15:58-0400 Reason For Taking VItal Signs ROLAN LA PREFORMS LAMINATOR-ECONOMIC DEVELOPMENT DIRECTOR [facility] 06-12-2022 12:14-0400 Heart rate 111 /min ROLANLEAH ARRIOLAN PREFORMS LAMINATOR-ECONOMIC DEVELOPMENT DIRECTOR [facility] 06-12-2022 12:14-0400 Reason For Taking VItal Signs ROLANELAH LA PREFORMS LAMINATOR-ECONOMIC DEVELOPMENT DIRECTOR [facility] 06-12-2022 07:10-0400 Heart rate 108 /min ROLANLEAH ARRIOLAN PREFORMS LAMINATOR-ECONOMIC DEVELOPMENT DIRECTOR [facility] 06-12-2022 07:10-0400 Mean blood pressure 84 mm[Hg] ROLAN ARRIOLAN PREFORMS LAMINATOR-ECONOMIC DEVELOPMENT DIRECTOR [facility] 06-12-2022 04:35-0400 Heart rate 91 /min ROLANLEAH ARRIOLAN PREFORMS LAMINATOR-ECONOMIC DEVELOPMENT DIRECTOR [facility] 06-12-2022 04:35-0400 Mean blood pressure 92 mm[Hg] ROLANLEAH ARRIOLAN PREFORMS LAMINATOR-ECONOMIC DEVELOPMENT DIRECTOR [facility] 06-11-2022 23:30-0400 Mean blood pressure 80 mm[Hg] ROLANLEAH JONESNEN PREFORMS LAMINATOR-ECONOMIC DEVELOPMENT DIRECTOR [facility] 06-11-2022 18:29-0400 Body height 160 cm ROLANLEAH ARRIOLAN PREFORMS LAMINATOR-ECONOMIC DEVELOPMENT DIRECTOR [facility] 06-11-2022 18:29-0400 Body weight 91.8 kg ROLAN LA PREFORMS LAMINATOR-ECONOMIC DEVELOPMENT DIRECTOR [facility] 06-11-2022 18:29-0400 Body weight 35.86 kg/m2 ROLAN LA PREFORMS LAMINATOR-ECONOMIC DEVELOPMENT DIRECTOR [facility] 06-11-2022 15:28-0400 Heart rate 133 /min ROLAN LA PREFORMS LAMINATOR-ECONOMIC DEVELOPMENT DIRECTOR [facility] Encounters Encounter Date Encounter Type Care Provider Facility Start: 10-04-2023 End: 10-09-2023 ambulatory REINALDO MEIALEIDA PREFORMS LAMINATOR-ECONOMIC DEVELOPMENT DIRECTOR Facility:B Start: 09-19-2023 End: 09-20-2023 ambulatory REINALDO MEIALEIDA PREFORMS LAMINATOR-ECONOMIC DEVELOPMENT DIRECTOR Facility:[facility] Start: 09-19-2023 End: 09-19-2023 Patient encounter procedure REINALDO LORENA PREFORMS LAMINATOR-ECONOMIC DEVELOPMENT DIRECTOR [facility] Start: 09-06-2023 End: 09-07-2023 ambulatory REINALDO CARRILLO PREFORMS LAMINATOR-ECONOMIC DEVELOPMENT DIRECTOR Facility:[facility] Start: 09-06-2023 End: 09-06-2023 Patient encounter procedure REINALDO LORENA PREFORMS LAMINATOR-ECONOMIC DEVELOPMENT DIRECTOR [facility] Start: 09-02-2022 End: 09-02-2022 Patient encounter procedure REINALDO CARRILLO PREFORMS LAMINATOR-ECONOMIC DEVELOPMENT DIRECTOR [facility] Start: 07-09-2022 End: 07-13-2022 Outreach Lab REINALDO CARRILLO PREFORMS LAMINATOR-ECONOMIC DEVELOPMENT DIRECTOR [facility] Start: 06-11-2022 End: 06-13-2022 Evaluation and management of inpatient ROLAN LA PREFORMS LAMINATOR-ECONOMIC DEVELOPMENT DIRECTOR [facility] Start: 12-02-2021 End: 12-02-2021 Patient encounter procedure DHIRAJ LEMOS MD [facility] Start: 08-31-2021 End: 09-04-2021 Outreach Lab DHIRAJ LEMOS MD [facility] Start: 08-31-2021 End: 08-31-2021 Patient encounter procedure DHIRAJ LEMOS MD [facility] Start: 06-06-2021 End: 06-06-[address] ROSY BHATT DO [facility] Start: 09-26-2020 End: 09-26-2020 Patient encounter procedure Anish Dave Work Phone: [facility] Start: 09-26-2020 Results Only Anish Jean [...] Author Start: 04-15-2020 Influenza vaccination INFLUENZA (#1) [facility] Start: 2016 ADVANCE DIRECTIVE DISCUSSION ADVANCE DIRECTIVE DISCUSSION [facility] Start: 2016 BONE DENSITY BONE DENSITY [facility] Start: 2016 PNEUMOVAX AGE 65 AND OVER WITH 5YR LOOKBACK (#1) PNEUMOVAX AGE 65 AND OVER WITH 5YR LOOKBACK (#1) [facility] Start: 2001 Screening for malign ant neoplasm of colon [facility] Start: 2001 SHINGRIX VACCINE (1 of 2) FLORES GRIX VACCINE (1 of 2) [facility] Start: 1996 DIABET[facility]CRE[facility] Start: 1996 LIPID SCREEN LIPID SCREEN [facility] Start: 1991 Mammography MAMMOGRAM [facility] Start: 1970 Urine microalbumin profile DTAP,TDAP ,TD (1 - Tdap) [facility] Start: 1969 HEPATITIS C SCREENING HEPATITIS C SC REENING [facility] Start: 1963 Adult depression scr eening assessment DEPRESSION SCREENING [facility] PT ED PATIENT INFORMATION PT ED PATIENT INFORMATION Other 09/26/2020 [facility] Immunizations Immunization Date Immunization Notes Care Provider [facility] 06-08-2023 SARS-CoV-2 (COVID-19 ) mRNAMUL.[id number] REINALDO CARRILLO PREFORMS LAMINATOR-ECONOMIC DEVELOPMENT DIRECTOR [facility] 05-23-2023 influenza virus vaccine, unspecified formulation REINALDO CARRILLO PREFORMS LAMINATOR-ECONOMIC DEVELOPMENT DIRECTOR [facility] 12-02-2021 COVID-19, mRNA, LNP- S, PF, 100 mcg or 50 mcg dose; Translations: [Moderna COVID-19 Vaccine] DHIRAJ LEMOS MD [facility] 06-17-2021 COVID-19, mRNA, LNP- S, PF, 100 mcg or 50 mcg dose; Translations: [Moderna COVID-19 Vaccine] DHIRAJ LEMOS MD [facility] 06-03-2021 zoster vaccine recombinant DHIRAJ LEMOS MD [facility] 04-03-2021 influenza virus vaccine, unspecified formulation DHIRAJ LEMOS MD [facility] 04-03-2021 zoster vaccine recombinant DHIRAJ LEMOS MD [facility] 11-10-2020 SARS-CoV-2 (COVID-19 ) mRNA-1273 vaccine DHIRAJ LEMOS MD [facility] 10-13-2020 SARS-CoV-2 (COVID-19 ) mRNA-[address] ROSY BHATT DO [facility] Payers Date Payer Category Payer Unknown [id number] 2020 Unknown PRIMETIME PRIMET TERESA HMO POS [id number] 2020-Present HMO [id number] 1950 Unknown [id number] 1950 Unknown [id number] 1950 Unknown [id number] Social History Date Type Detail Facility Start: 03-27-2007 [facility] Start: 03-27-2007 Alcohol intake 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 (finding) [facility] Start: 1950 [facility] Exposure to SARS-CoV -2 (event) Not sure [facility] Start: 06-06-2021 Ex-smoker (finding) [facility] Functional Status Date Assessment Result Facility 06-13-2022 Functional Status Remains out of bed, Remains up in chair [facility] 06-13-2022 Functional Status Door open [facility] 06-13-2022 Functional Status [facility] 06-13-2022 Functional Status [facility] 06-13-2022 Functional Status [facility] 06-12-2022 Functional Status [facility] 06-12-2022 Functional Status Single level home [facility] 06-11-2022 Functional Status SCD On/Re-appl ied bilateral knee high [facility] 06-11-2022 Functional Status Sensory Deficits None [facility] Mental Status Date Assessment Result Facility 06-13-2022 Mental Status Oriented x 4 [facility] 06-13-2022 Mental Status [facility] 06-12-2022 Mental Status [facility] Clinical Notes 09-29-2020 to 10-05-2023 LaboratoryRadiology Note [...] Locations *1: This test was performed at: [facility], [address] [place] [address], [address] , [facility] ([place]) 09-06-2023 Note ORIGINAL FROM: JEN ELMIRA [address] [place], [place] [address] PROCEDURE FOR: CHELLE WINTER [address] [place] [id number] Home: PID#: [id number] Exam#: [id number] : 1950 Age: 73 TO: REINALDO CARRILLO APRN [facility] [place], [place] [address] Fax: NO FAX EXAMINATION: ULTRASOUND OF THE [...] MASTODYNIA. copy to: LAILA TAPIA DO, ph: [phone], fax: [phone] copy to: NOVA HE MD, ph: [phone], fax: [phone] copy to: BAYRON BENÍTEZ MD, ph: [phone], fax: [phone] Furnishings Conservator: AVELINO SANTOS RT(R) RDMS letter sent: Normal BI-RADS 1 and 2 Ultrasound BI-RADS: 2 Benign [facility] 09-06-2023 Note ORIGINAL FROM: [place] [address] [place], [place] [address] PROCEDURE FOR: CHELLE WINTER [address] [place] [id number] Home: PID#: [id number] Exam#: [id number] : 1950 Age: 73 TO: REINALDO CARRILLO PREFORMS LAMINATOR [facility] [address] [place], [place] [address] Fax: NO FAX EXAMINATION: SCREENING DIGITAL RIGHT [...] CARRILLO copy to: LAILA TAPIA DO, ph: [phone], fax: [phone] copy to: NOVA HE MD, ph: [phone], fax: [phone] copy to: BAYRON BENÍTEZ MD, ph: [phone], fax: [phone] Furnishings Conservator: CLEMENTE PHILLIPS RT (R)(M) letter sent: Abnormal-Needs additional work up BI-RADS 0 Mammogram BI-RADS: 0 Indeterminate [facility] 02-23-2023 Evaluation + Plan note Future Scheduled TestsLipid Profile 02/23/23 [facility] 07-09-2022 Evaluation + Plan note Future Scheduled TestsMA Mammo Screening Right w/ Avel 07/09/22US Breast Left Complete 07/09/22 [facility] 06-13-2022 Note Discharge Instructions Thank you for allowing [facility] to assist you with your healthcare needs. The following is important discharge information regarding your hospital visit. Your Care Team REINALDO CARRILLO APRN-ECONOMIC DEVELOPMENT DIRECTOR Your Diagnosis UTI (urinary tract infection) Fever [...] a day Duration: 7 Days Pickup at [facility]/pharmacy #[id number] Unchanged acetaminophen (acetaminophen 500 mg [...] by mouth Once a day Pharmacy Information [facility]/pharmacy #[id number]: [address] [place], [place] [id number] [phone] Please take this list to your next [...] may report side effects to FDA at 1-758-XKG-9674. What other drugs will affect cefuroxime? Tell your doctor about all your other medicines, especially: any other IV antibiotic; probenecid; a diuretic or 'water pill'; a blood thinner--warfarin, Coumadin, Jantoven; or a stomach acid psychiatry adult physician--esomeprazole, famotidine, Nexium, Pepcid, Prevacid, Prilosec, Tagamet, Zantac, and others. This list is not complete. Other drugs may affect cefuroxime, including prescription and lyhl-ddy-asmlpxd medicines, vitamins, and herbal products. Not all [...] to ensure that the information provided by [employer]. ('[employer]') is accurate, up-to-date, and complete, but no guarantee is made to that effect. Drug information contained herein may be time sensitive. [employer] information has been compiled for use by healthcare practitioners and consumers in the [place] and therefore [employer] does not warrant that uses outside of the [place] are appropriate, unless specifically indicated otherwise. [employer]'s drug information does not endorse drugs, diagnose patients or recommend therapy. [employer] drug information is an informational resource designed [...] effective or appropriate for any given patient. [employer] does not assume any responsibility for any aspect of healthcare administered with the aid of information [employer] provides. The information contained herein is not intended to cover all possible uses, directions, precautions, warnings, drug interactions, allergic reactions, or adverse effects. If you have questions about the drugs you are taking, check with your doctor, nurse or pharmacist. Copyright 6481-5297 [facility] [employer], Tonie. Version: 10.. Revision Date: 06/16/2021. Additional Information VACCINATE! IT SAVES LIVES! Members of the community who have not yet received the COVID-19 vaccine and would like to receive it can visit one of [facility] vaccine clinics. There are many vaccine clinic locations within the [facility]. For locations and available times, please visit [email or web address].o hio.gov/. It is important to note that some COVID mobile vaccine clinics are held outdoors and may be canceled in rainy or stormy conditions. To learn more about pediatric vaccinations (ages 5-11), we invite you to visit the [facility] webpage. https://www.Patients Know Bests.org/p ages/4949-Uhfza-Nipvkrukvan-Freq oxxlqm-Kbqao-Vdlhhqbjy.html To learn more about the COVID-19 vaccine, we invite you to visit the [facility] website for a list of frequently asked questions. [email or web address]://jen.org/assets/Patie kxi-njl-Omomqrmb/jaxpo-Hkxpflk-O requently_Asked-Questions.pdf [facility] Patient Portal Access Instructions: Stay connected with your healthcare team and access your personal medical information anytime with the [facility] Patient Portal.If you would like a full copy of your medical records, please contact the [facility] Medical Records Department, Tuesday through Tuesday between 8a.m. and 4:30p.m. Please follow the directions below to access the portal: 1.Access the email account you provided upon registration to the [facility].2.Look for an invitation email from [facility].3.Open the email and access the invitation link: Accept Invitation to [facility]4.Fill in the required kwan to create your account. Sign into www.Freezing Point with your username and password that you [...] you will allow to register on the [employer] Patient Portal for access to your information. You can also access the [employer] Patient Portal on the [employer] katerine. Simply click on Health Records under Health Data and then click on the [employer] logo. HOW TO SAFELY DISPOSE OF PRESCRIPTION [...] Call your local pharmacy or go to [email or web address] to find one close to you.3.Make use of household items: Use cat litter or old coffee grounds to dispose medications if other options are not available. Mix your drugs with these household products, seal them in an airtight container and throw it into the garbage. Call [facility]: [phone] to be sure your drugs can be [...] aware that I should contact my doctor. 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 UTI (urinary tract infect ion) 2. [...] and may include grammatical and/or spelling errors. [facility] 10-29-2022 Note ORIGINAL EXAMINATION: ONE XRAY VIEW [...] Sign Date: 06/12/2022 12:04:08 PM Ordering Provider: [facility] ([facility]-2022 Note ORIGINAL EXAMINATION: ONE XRAY VIEW OF [...] Sign Date: 06/12/2022 12:04:08 PM Ordering Provider: [facility]10-29-2022 Note Date of Service 06/12/2022 Chief Complaint Pt alert and oriented. C/o dysuria, fever. and chills for 3 days. States started on BActrim but it was causing itching. Sent from [facility]. 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 Author Type: Nurse Practitioner Type: Progress Notes Filed: 07/03/2021 2:22 PM Note Text: Subjective The history is provided by the patient. No language path was used. Patient presents with: Rash: both [...] detail warranting prompt ER evaluation. Wendy Springer APRN.[facility]04-19-2021 NoteHNO ID: [id number] Author: Anish Dave Service: ? Author Type: [...] a repeat PET scan needs to be performed.[facility]03-26-2021 Note HNO ID: [id number] Author: Marie Scott Service: ? Author Type: Physician Type: Progress Notes Filed: 11/08/2020 10:27 AM Note Text: FOLLOW UP VISIT - POST OP NAME: [facility] NO[facility] [id number] DATE OF SERVICE: 11/07/2020 : 1950 REFERRING PHYSICIAN: Dhiraj Lemos MD Chelle is a patient I am following for Dr. Dave. She is status post left chest wall - excision of mass done at [facility] on 10/31/2020. Pathology reveals metastatic breast cancer. 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 Immunohistochemistry ([id number]) supports the above diagnosis. The resection margins are free of tumor. Skeletal muscle tissue is also noted in the specimen and free of tumor. RESULTS: ER (6F11) positive (>95%, moderate intensity) IL (1E2) positive (48%, moderate intensity) Her-2neu (CB11) negative (1+) E-Cad (ECH-6) positive Mammaglobin (31A5) positive GATA3 (L50-823) positive AE1-3 (AE1/AE3/PCK26) positive CK7 (OV-TL12/30) positive CK8 (07ygnvI31) positive CK20 (KS20.8) negative TTF-1 (8G7G3/1) negative [...] Dr. Dave as per instructed. Marie Scott, [facility]03-17-2021 NoteHNO ID: [id number] Author: Guillermina WernerRn) JANAE Cuba Service: ? Author Type: Registered Nurse Type: Nursing Progress Note Filed: 10/29/2020 9:48 AM Note Text: Pt appears comfortable. Passing air rectally. Guillermina Cuba [facility]-2021 NoteHNO ID: [id number] Author: Anish Dave Service: ? Author Type: [...] PET CT scan which was done at [facility] on 09/23/2020. Ultrasound was completed which confirmed [...] were applied. The patient tolerated the procedure well.[facility]03-08-2021 Note ADDITIONAL PROCEDURES PRESENT Specimen originated from [facility] Specimen #: [id number] Submitting Physician: ANISH DAVE ([id number]) FINAL DIAGNOSIS Left breast, mass, needle core biopsy - Invasive ductal carcinoma, provisional [place] grade 2 (please see comment). EDK/eec 10/22/2020 [...] Receptor: Food and Drug Administration (FDA) [place] Primary Antibody: SP1 Progesterone Receptor: FDA cleared: [employer] [place], [place] Primary Antibody: IE2 HER2 (ERBB2) by IHC: FDA cleared: [employer] [place], [place] Primary Antibody: 4B5 The hormone receptor [...] ASCO/CAP Guideline Update. J Clin Oncol. 2019Dec 02;38(12):0150-9492. doi: 10.1200/JCO.19.01770. Ep2019Aug 27. PMID: [id number]. The hormone receptor assays have been internally validated on decalcified tissues Estrogen and progesterone receptor results are valid if tissue was processed according to ASCO/CAP guidelines. Antibody and Detection System: [employer] Pathway anti-HER2 rabbit monoclonal antibody (clone 4B5), [employer] anti-estrogen receptor rabbit monoclonal antibody (clone SP1) and [employer] anti-progesterone receptor rabbit monoclonal antibody (clone IE2) detected with the [employer] iView Detection System (indirect biotin streptavidin detection); [employer], [place], [place]. Control slides: Cell line controls with [...] accordance with the guidelines approved by the [place] Society [employer] Clinical Oncologists and the College of (more content not included)... [facility]03-08-2021 NoteHNO ID: [id number] Author: Ángela Fisher RN Service: ? Author [...] YES Sign Out Discussion: Completed Ángela Fisher [facility]03-04-2021 NoteHNO ID: [id number] Author: Anish Dave Service: ? Author Type: [...] left-sided mastectomy on this patient. She was ER/[place] positive HER-2/judah negative tumor size was 15 [...] pain/injury, denies back pr (more content not included)...[facility] [facility] NoteHNO ID: [id number] Author: Anthony Aparicio (Tech) Service: ? Author Type: Mat Making Machine Tender Type: Progress Notes Filed: 10/13/2020 12:30 PM [...] Winter DATE: October 13, 2020 TIME: 12:29 [facility]02-15-2021 NoteHNO ID: [id number] Author: Anish Dave Service: ? Author Type: Physician Type: Progress Notes Filed: 09/29/2020 11:22 AM Note Text: HISTORY AND PHYSICAL Chelle Winter 1950 REFERRING PHYSICIAN: MD Caesar CHIEF COMPLAINT: PET scan results HPI: The patient is a 70 year old female with a complaint of An abnormal PET scan.-2018 I performed a left-sided mastectomy on this patient. She was ER/IL positive HER-2/judah negative tumor size was 15 [...] entered by the nurse and reviewed by nc Nursing Notes: Tamanna Landrum LPN 09/29/2020 10:25 [...] of skin cancer, saran (more content not included)...[facility] Appointment Date:06/17/2021 01:00:00 PM Scheduled Provider: Location:[facility] Appointment Type:COVID AMB VACCINE Appointment Date:08/31/2021 11:00:00 AM Scheduled Provider: Location:[facility] Appointment Type:MA Mammogram Screening Bilateral w/ Avel Diagnostic Tests Pending * Urine Culture 06/06/21 Future Scheduled Tests Radiology* MA Mammo Screening Bilateral w/ Avel 08/31/21 * MA Mammo Screening Right w/ Avel 08/26/20 [facility] Evaluation + Plan note Future Appointments Appointment Date:02/23/2022 11:00:00 AM Scheduled Provider:REINALDO CARRILLO Location:[facility] Appointment Type:PC Wellness Primetime Enhanced [facility] Hospital course Narrative No data available for this section [facility] Hospital Discharge instructions No data available for this section [facility] Progress note No data available for this section [facility] Summary Purpose Family History No Family History [...] or prosecute any alcohol or drug abuse patient.[facility] INFORMATION SOURCE (unrecogn ized section and content) DATE CREATED AUTHOR AUTHOR'S ORGANIZ ATION 10/11/2023 [facility] Care Team (unrecognized sect ion and content) Personnel Name: DHIRAJ LEMOS MD Address: [address] [place] [address] Care Team Personnel Name: REINALDO CARRILLO Position: P4 Advanced Sql Server Bi Developer Member Role: Primary Care Physician Address: Address: [address] [place] [address]- [place] Name: RONALD GLORIA PA-C Position: Advanced Sql Server Bi Developer Member Role: Orthopaedist Address: Address: [facility] [address] [place] [address]- [place] Name: Olivia Logan [facility] Position: Quality Review Member Role: Artificial Inseminator Name: NOVA HE MD Member Role: Oncologist Address: Address: [address] [place], [place] [id number] Name: LAILA TAPIA DO Member Role: Radiation Oncologist Address: Address: [address] [facility] [address]- Care Team Related Persons Name: JASON WINTER Care Team Personnel Name: REINALDO CARRILLO Position: P4 Advanced Sql Server Bi Developer Member Role: Primary Care Physician Address: Address: [address] [place] [address]- [place] Name: RONALD GLORIA PA-C Position: Advanced Sql Server Bi Developer Member Role: Orthopaedist Address: Address: [facility] [place] [address] [place] [address]- [place] Name: Olivia Logan Position: Quality Review Member Role: Artificial Inseminator Name: NOVA HE MD Member Role: Oncologist Address: Address: [address] [place] [address]- Name: LAILA TAPIA DO Member Role: Radiation Oncologist Address: Address: [address] [facility] [address]- Care Team Related Persons Name: FRANCES WINTER Address: [address] [phone] Name: JASON WINTER Care Team (unrecognized sect ion and content) Care Team Personnel Name: REINALDO CARRILLO Position: P4 Advanced Practice Nurse Member Role: Primary Care Physician Address: Address: [address] [place] [address]- [place] Name: RONALD GLORIA PA-C Position: Physician Tax Manager Public Member Role: Orthopaedist Address: Address: [facility] [place] [address] [place] [address]- [place] Name: NOVA HE MD Member Role: Oncologist Address: Address: [address] [place] [address]- [place] Name: TIMO OLIVA MD Position: ED Physician Address: Address: [facility] [address] [place] [address]- [place] Name: Ruth Boss RN Position: RN Member Role: ED RN Care Team Related Persons Name: JASON WINTER Care Team Personnel Name: REINALDO CARRLILO Position: P4 Advanced Practice Nurse Member Role: Primary Care Physician Address: Address: [address] [place] [address] Name: RONALD GLORIA PA-C Position: Physician Tax Manager Public Member Role: Orthopaedist Address: Address: [facility] [place], [place] [address] Name: Olivia Logan Position: Quality Review Member Role: Artificial Inseminator Name: NOVA HE MD Member Role: Oncologist Address: Address: [facility] [place], [place] [address] Name: LAILA TAPIA DO Member Role: Radiation Oncologist Address: Address: [address] [facility] CANCER [facility]- RADIATION ONCOLOGIST [address] Care Team Related Persons Name: JASON WINTER Care Team Personnel Name: REINALDO CARRILLO Position: P4 Advanced Practice Nurse Member Role: Primary Care Physician Address: Address: [address] [place] [address] Name: RONALD GLORIA PA-C Position: Physician Tax Manager Public Member Role: Orthopaedist Address: Address: [facility] [place] [id number] Name: Olivia Logan Position: Quality Review Member Role: Artificial Inseminator Name: NOVA HE MD Member Role: Oncologist Address: Address: [address] [place] [phone] Name: LAILA TAPIA DO Member Role: Radiation Oncologist Address: Address: [address] [facility] CANCER [facility]- RADIATION ONCOLOGIST [place] [id number] Care Team Related Persons Name: JASON WINTER [...] BE BASED ON THE PRIMARY CLINICAL RECORDS. [facility] provides no warranty or guarantee of the accuracy or completeness of information in this document.
--- NOTE | 2023-10-13 01:00 | NURSING ---
this nurse assisted WEATHERIZATION OPERATIONS MANAGER with care of patient
[2023-10-13 03:56] VITALS: BP 146/62; PULSE 95; RESP 16; TEMP 36.5; O2SAT 93
[2023-10-13 06:45] VITALS: BP 140/65; PULSE 87; RESP 16; TEMP 36.8; O2SAT 95
[2023-10-13] MEDS: 0.9% Normal Saline (1000mL) 1,000 ML 60 ML IV (07:31)
[2023-10-13 07:51] VITALS: BP 154/69; PULSE 87; RESP 16; TEMP 36.8; O2SAT 96
--- NOTE | 2023-10-13 08:20 | PCM.PN.SRG ---
Subjective Subjective Patient is a 73 y/o I am following s/p right mastectomy with axillary lymph node biopsy by Dr. Jaffe. Patient is recovering very well. She notes minimal discomfort. She notes not much has been coming out of the drain. Objective Data Objective Data Vital Signs: Vital Signs Temp Pulse Resp BP Pulse Ox O2 Del Method O2 Flow Rate 98.3 F 87 16 154/69 H 96 Room Air 2 10/13/23 07:51 10/13/23 07:51 10/13/23 07:51 10/13/23 07:51 10/13/23 07:51 10/13/23 07:51 10/12/23 13:00 Oxygen Flow Rate (L/min) 2 Oxygen Delivery Method Room Air Weight: 201 lb Body Mass Index (BMI) 36.7 Intake & Output: Intake and Output for Last 24 Hours 10/11/23 10/12/23 10/13/23 23:59 23:59 23:59 Intake Total 1240.25 / 1240.25 907 / 907 Output Total 30 30 Balance 1210.25 / 1210.25 907 / 907 Radiography Diagnostic Testing: Radiology Impression [place] Node 10/12/23 08:00 IMPRESSION: Periareolar subcutaneous injection of 1.1 mCi of technetium labeled sulfur colloid for sentinel node imaging. Electronically Signed: Ricco Dominguez MD at 11:52 EST , Physical Exam Chest Chest Narrative: Right chest- incision c/d/i. No erythema or infection. Minimal amount of ecchymosis noted. ABD pad was reapplied, drain sponge was changed and mastectomy bra was secured into place Assessment & Plan Assessment/Plan (1) Breast cancer, right: QUALIFIERS: Breast location: upper outer quadrant of breast Estrogen receptor status: negative Patient sex: female Qualified Code(s): C50.411 - Malignant neoplasm of upper-outer quadrant of right female breast; Z17.1 - Estrogen receptor negative status [ER-] PLAN: I am seeing this patient in conjunction with Dr. Linton in Dr. Jaffe's absence. Patient is ready for discharge Discharge instructions were reviewed Patient to follow-up for drain removal in 1 week Charges/Coding Visit Charges Inpatient E&M: 05631 Subs Hosp L1 (no charge; post-op)
--- NOTE | 2023-10-13 08:21 | WOUNDNOTE ---
Had been consulted on patient for drain care. JOE Gillespie had been in this am and changed dressing and reviewed drain care with patient. pt states she had a drain on the left side approx 5 years ago. feels comfortable with the dressing changes, emptying and recording the drainage, etc. she too record drainage was given to the patient. dressings sent with patient. no further needs voiced at this time.
[2023-10-13] MEDS: oxyCODONE 5 MG Tablet PO (08:38)
[2023-10-13] MEDS: Pantoprazole Sodium 40 MG Tablet PO (08:41)
[2023-10-13 08:55] LABS: Anion Gap 3 (5-15); BUN 17 mg/dL (7-18); BUN/Creat Ratio 19.7 RATIO (10-20); Calcium,Total 8.6 mg/dL (8.5-10.1); Chloride 110 mmol/L (98-107); Creatinine, Serum 0.86 mg/dL (0.55-1.02); EST Glomerular Filtration Rate 69 mL/min (>60); Est Glom Filt Rate - Afr Amer 83 mL/min (>60); Glucose 86 mg/dL (74-106); Potassium 4.6 mmol/L (3.5-5.1); Sodium Level 138 mmol/L (136-145)
[2023-10-13 09:04] LABS: Absolute Lymphocyte Count 1.15 X10^3/uL (0.83-4.51); Absolute Neutrophil Count 8.8 X10^3/uL (2.0-7.7); Basophil# 0.03 X10^3/uL; Basophil% 0.3 % (0-1); Eosinophil# 0.01 X10^3/uL; Eosinophils% 0.1 % (0-5); Hematocrit 37.7 % (37-47); Hemoglobin 11.9 g/dL (12.0-15.0); Lymphocyte # 1.15 X10^3/ul (0.83-4.51); Lymphocyte % 10.8 % (19-41); Mean Corp Hgb Conc 31.6 g/dL (32-36); Mean Corpuscular Hgb 30.6 pg (27.0-32.0); Mean Corpuscular Volume 96.9 fL (81-99); Mean Platelet Vol. 10.9 fl (6.2-12.0); Monocyte% 6.6 % (0-10); NRBC Flagged by Analyzer 0 % (0-5); Neutrophil # 8.75 X10^3/uL (2.7-7.7); Neutrophil % 81.9 % (47-70); Platelet Count 250 K/mm3 (150-450); RBC Distribution Width CV 12.7 % (11.6-14.6); RBC Distribution Width SD 45.5 fl (35.1-43.9); Red Blood Count 3.89 M/mm3 (4.2-5.4); White Blood Count 10.7 K/mm3 (4.4-11.0)
[2023-10-13 10:41] VITALS: BP 147/78; PULSE 88; RESP 18; TEMP 36.8; O2SAT 98
--- NOTE | 2023-10-13 11:53 | PHA.DC.MR.R ---
Pharmacy [place] Med Reconciliation Pharmacy Service has performed discharge medication reconciliation for this patient. Medication education papers prepared, patient already discharged when counseling was attempted. The patient's discharge medication list was reviewed for discrepancies and discrepancies were resolved. Medications at Discharge Home Medications omeprazole 40 mg capsule,delayed release 40 mg PO DAILY REFLUX 09/05/18 exemestane 25 mg tablet 25 mg PO DAILY CANCER 10/04/23 acetaminophen 325 mg tablet 650 mg (2 x 325 mg) PO Q4H PRN PRN Pain 1-10 Or Fever #0 tabs 10/12/23 oxycodone 5 mg tablet 5 - 10 mg (1 - 2 x 5 mg) PO Q4H PRN PRN Pain Score 4-10 5 days #30 tabs 10/12/23
== END 2023-10-13 12:10 | disposition home or self-care (01) ==
LOC: SDC 15:07 → MS3 15:07
PROVIDERS: Admitting Provider Surgery; PCP Nurse Practitioner Primary Care; Referring Provider Surgery; Visit Provider Surgery
PROC: (CPT 19307; principal; 2023-10-12 09:45)
DX: C50.811 Malignant neoplasm of overlapping sites of right female breast (principal); C50.912 Malignant neoplasm of unspecified site of left female breast; Z80.3 Family history of malignant neoplasm of breast; Z87.891 Personal history of nicotine dependence; E78.00 Pure hypercholesterolemia, unspecified; Z17.1 Estrogen receptor negative status [ER-]; Z79.899 Other long term (current) drug therapy; K21.9 Gastro-esophageal reflux disease without esophagitis
CPT/HCPCS: 19303; 00400; 38525; 38792; 36415; 80048; 85025; 88305; 88307; 88331; 88332; 88341; 88342; 94668; 99221; A4648; A9541; J7030; J7120; G0378; J2405; J3490; Q9968

== ENCOUNTER 2023-11-23 09:12 | Day surgery (SDC) | payer MEDICARE, SELFPAY ==
[2023-10-14 10:05] VITALS: BMI 34.9
[2023-11-23 09:43] VITALS: BP 153/81; PULSE 94; RESP 18; TEMP 36.1; O2SAT 100; BMI 36.3
[2023-11-23] MEDS: Lactated Ringers 1,000 ML 15 ML IV (09:53)
--- NOTE | 2023-11-23 09:59 | PCM.HP.BLA ---
History and Physical Date of Admission: 11/23/23 Intake Vital Signs 10/13/2409:05 11/06/2413:13 Height 5 ft 2 in 5 ft 2 in Intake Visit Reasons: BREAST CHECK/DISCUSS PORT Chief Complaint: breast check/discuss port Grievance And Appeals Specialist Required: No Is patient in pain?: No Allergies nitrofurantoin [From Macrobid] Allergy (Mild, Verified 11/09/23 14:21) othernaproxen Allergy (Verified 11/09/23 14:21) Othersulfamethoxazole [From Bactrim] Allergy (Verified 11/09/23 14:21) OtherSulfa (Sulfonamide Antibiotics) Adverse Reaction (Verified 11/09/23 14:21) weaknesstrimethoprim [From Bactrim] Adverse Reaction (Verified 11/09/23 14:21) Other Medications exemestane 25 mg tablet 25 mg PO DAILY CANCER 10/04/23 [History Confirmed 11/09/23] acetaminophen 325 mg tablet 650 mg (2 x 325 mg) PO Q4H PRN PRN Pain 1-10 Or Fever #0 tabs 10/12/23 [Rx Confirmed 11/09/23] lidocaine-prilocaine 2.5 %-2.5 % topical cream 1 applic topical ONCE PRN port access 30 days #30 grams 11/07/23 [Rx Confirmed 11/09/23] ondansetron 8 mg disintegrating tablet 8 mg PO Q8H PRN nausea and vomiting #30 tabs 11/07/23 [Rx Confirmed 11/09/23] PFSH Medical History Breast cancer (~08/2018) Cancer Carpal tunnel syndrome delivery delivered Elevated serum globulin level Former smoker Gastric reflux GERD (gastroesophageal reflux disease) High cholesterol History of IBS History of ulceration IBS (irritable bowel syndrome) Metastatic breast cancer Ovary removal, prophylactic Recurrent cancer of left breast Wears glasses Surgical History History of carpal tunnel surgery History of colonoscopy History of conization of cervix History of left mastectomy History of oophorectomy, unilateral History of right breast biopsy Hx laparoscopic cholecystectomy Status post right mastectomy Tubal ligation status Family History Mother Breast cancer Heart diseaseFather Colon cancerAunt Breast cancer 5 with breast cancer Heart disease Social History Smoking Status: Former smoker alcohol intake: never substance use type: does not use caffeine: Yes what type of physical activity do you participate in: walking seatbelt use: always do you feel safe at home: Yes additional social history: Aguilar- both are retired HPI HPI HPI: Patient reports she is doing well. She is having some pain on the right side in the axilla that feels like fullness. ROS General General: Yes breast cancer; No weight change, appetite, fatigue, colon cancer or weakness HEENT HEENT: No difficulty swallowing, eye injury, eye surgery, swollen glands or hoarseness Endo Endocrine: No thyroid disease, diabetes mellitus, thyroid cancer, Hair loss, heat intolerance or cold intolerance Skin Skin: No rash or changing moles Breast Breast: Yes abnormal mammogram and abnormal US; No left breast lump, right breast lump, nipple discharge, breast pain or breast enlargement Additional Details: Right Breast Lymphedema left arm Musc Musculoskeletal: No back problems, arthritis, rheumatoid arthritis, gout or joint pain Cardio Cardiovascular: No murmur, pacemaker, heart disease, atrial fibrillation, high blood pressure, heart attack, heart stent, palpitations, shortness of breat with exertion or chest pain Psych Psychiatric: No depression, anxiety or hearing voices Resp Respiratory: No shortness of breath, No sleep apnea, No cough, No COPD, No asthma, No emphysema and No wheezing Gastro Gastrointestinal: No abdominal pain, No nausea or vomiting, No diarrhea, No constipation, No blood in stool, No acid reflux, No hemorrhoids, No ulcers, No gallbladder problem and No black,tarry stools Fabricio Hematologic: No blood thinners, No blood disorders, No bleeding, No anemia and No blood clots Neuro Neurologic: No system reviewed and no additional complaints, except as documented, No as per HPI, No abnormal gait, No abnormal hearing, No abnormal movements, No abnormal speech, No behavioral changes, No burning sensations, No confusion, No convulsions, No disequilibrium, No dizziness, No localized weakness, No frequent falls, No headache(s), No lack of coordination, No loss of vision, No memory loss, No numbness, No other visual disturbances, No radicular pain, No restless legs, No sensory deficit, No syncope, No tingling, No tremor(s), No weakness and No other Exam Const General: cooperative Orientation: alert and oriented x3 HENMT Head: normal to inspection Neck Neck: normal visual inspection and full ROM Chest Other: Seroma behind the right breast Resp Effort & Inspection: normal respiratory effort Auscultation: clear to auscultation bilaterally Cardio Rate: regular rate Rhythm: regular rhythm GI Inspection: non-distended Palpation: soft and nontender Skin General: no rashes or lesions noted Neuro General: patient alert and patient oriented x3 Extrem General: full ROM Psych Appearance: grossly normal Mental Status: mental status grossly normal Assessment and Plan Assessment and Plan (1) Breast cancer, right: Status: Acute Qualifiers: Breast location: upper outer quadrant of breast Estrogen receptor status: negative Patient sex: female Qualified Code(s): C50.411 - Malignant neoplasm of upper-outer quadrant of right female breast; Z17.1 - Estrogen receptor negative status [ER-] I discussed left chest port placement with the patient in detail. I discussed the risks including not limited to bleeding, infection, injury other organs or pneumothorax. I also discussed the risks of line infection or DVT. Patient understands all the risks and is willing to proceed with surgery. Jono Jaffe MD Pager: [facility] [address] [place] [address], [address] [place] [address] Office:
[2023-11-23] MEDS: Cefazolin 2 GM in 0.9% Normal Saline (100mL Bag) 100 ML IV (10:55)
[2023-11-23] MEDS: Lidocaine 1% /Epi 1:100 (20ml) 20 ML Vial (11:08)
[2023-11-23] MEDS: Bupivacaine Mpf 0.5% 30 ML VIAL (11:08)
[2023-11-23 11:28] VITALS: BP 153/81; BP 184/68; PULSE 79; RESP 18; TEMP 36.2; O2SAT 100
[2023-11-23 11:35] VITALS: BP 153/81; BP 168/79; PULSE 79; RESP 18; O2SAT 99
--- NOTE | 2023-11-23 11:39 | RAD_ITS ---
STUDY: X-RAY CHEST REASON FOR EXAM: Female, 73 years old. PORT -- PORTABLE, STAT WET READ TECHNIQUE: Single AP portable view of the chest. COMPARISON: None. FINDINGS: A left-sided portacatheter has been placed. The tip is at the junction of the superior vena cava and right atrium. Surgical clips are seen in the right axillary region. Surgical clips are also seen overlying the left lower lung field. The lungs are clear and expanded. There is no demonstrated pleural abnormality. Normal size heart. Normal mediastinum and eric. Normal visualized pulmonary arteries. There is atherosclerotic tortuosity of the aortic arch and descending thoracic aorta. There are degenerative changes of the visualized thoracic spine. Normal visualized ribs, clavicles, and shoulders. There is no demonstrated abnormality of the visualized soft tissue structures of the upper abdomen. RAD/Chest 1 View (Portable) IMPRESSION: The tip of the left-sided portacatheter is at the junction of the superior vena cava and right atrium. Electronically Signed: Ricco Dominguez MD at 12:14 EDT ,
[2023-11-23 11:40] VITALS: BP 153/81; BP 180/79; PULSE 80; RESP 18; O2SAT 100
[2023-11-23 11:46] VITALS: BP 153/81; BP 178/83; PULSE 82; RESP 18; TEMP 36.3; O2SAT 99
--- NOTE | 2023-11-23 12:32 | PCM.OPRPT ---
Report of Operation Date of Procedure: 11/23/23 Pre-Operative Diagnosis: Breast cancer and need for vascular access for chemotherapy Post-Operative Diagnosis: Same Surgery/Procedure Performed:: 1. Ultrasound and fluoroscopy guided left chest port placement utilizing left IJ 2. Aspiration of right breast seroma Type of Anesthesia: Local MAC Specimen's removed: None Estimated Blood Loss (mL): 5 Description of Procedure: After obtaining informed consent patient was brought back to the operating room. The right mastectomy site was inspected with ultrasound and there was a pocket of fluid. Lateral to this an area of skin was injected with local anesthetic. Under ultrasound guidance an 18-gauge needle was placed into the fluid collection and it was aspirated. 50 cc of serosanguineous fluid were removed and discarded. There was no sign of infection or bleeding. MAC anesthesia was induced and the left chest and neck were prepped in normal sterile fashion. Ultrasound was used to evaluate both IJs and the left IJ was selected. Next, using a needle, the left IJ was accessed and a guidewire was passed on into the superior vena cava under fluoroscopy guidance. A small incision was made over the puncture site and the dilator introducer was placed over the guidewire. Next this was capped and the pocket was made for the port. 1% lidocaine with epinephrine was injected in the proposed port site. An incision was made with scalpel. Electrocautery was used to make a pocket under the skin and subcutaneous tissue. Hemostasis was obtained. Next, the catheter was tunneled up to the neck incision site and placed through the introducer. The peel-away introducer was removed and the position of the catheter was confirmed on fluoroscopy. Next, the catheter was trimmed and attached to the port with the locking device. Interrupted 2-0 Vicryl sutures were used to anchor the port to the chest wall and then the port was placed inside the pocket. The pocket was then flushed with saline and the port irrigated with saline. There was good blood return and the port flushed easily. Next, heparin was injected into the port. The skin was closed with subcutaneous interrupted 3-0 Vicryl sutures. A single 3-0 Vicryl sutures placed under the skin at the neck incision site. Steri-Strips were placed as well as op sites. Patient tolerated procedure well, was taken to PACU in stable condition. Chest x-ray will be obtained. Grafts/Implants Used: 8 [employer] PowerPort Admit VTE Documentation VTE Mechan Device Prophylaxis: SCD's
--- NOTE | 2023-11-23 12:35 | EX.PCM.DISCH ---
Discharge Instructions Diet Discharge Diet: Light diet - advance as tolerated Activity Discharge Activity: Return to Normal Activity and May Shower (with your bandage in place in 1 to 2 days after surgery. DO NOT SHOWER WHEN YOUR PORT IS ACCESSED.) Additional Activity Instructions:: Alternate ibuprofen and Tylenol for pain control Dressing / Incision Call your doctor if your incision/area has: Continuous Slow Oozing, Sudden Increased Bleeding, Increased Pain/ Swelling, Increased Redness and Foul Smelling Discharge Call your doctor if you observe: Fever of 101 or Higher Remove Dressing in: 2 days Cleanse incision/area with: Soap & Water Follow Up Care Please Follow Up With: Jono Jaffe MD When: As needed at [phone] Test Results: Test results from this visit will be discussed in further detail at your follow-up appointment, if applicable. Discharge Plan Admission Attending Provider: Jono Jaffe Primary Care Provider: Eb Galo NP Discharge Orders/Prescriptions Prescriptions: No Action lidocaine-prilocaine 2.5-2.5 % cream 1 applic topical ONCE PRN (Reason: port access) 30 Days Qty: 30 2RF ondansetron 8 mg tablet,disintegrating 8 mg PO Q8H PRN (Reason: nausea and vomiting) Qty: 30 2RF exemestane 25 mg tablet 25 mg PO DAILY Hold Instructions: Ordered Rx Instructions: TAKE 1 TABLET BY MOUTH EVERY DAY AFTER A MEAL acetaminophen 325 mg Tablet 650 mg PO Q4H PRN PRN (Reason: Pain 1-10 Or Fever) Qty: 0 0RF omeprazole 40 mg capsule,delayed release(DR/EC) 40 mg PO DAILY Referrals / Follow Up: Eb Galo NP, CLINICAL QUALITY ANALYST-C [Primary Care Provider] - Disposition Disposition (needs filled in before D/C Order can be placed): Home, Self Care
[2023-11-23 13:08] VITALS: BP 153/81; BP 183/83; PULSE 84; RESP 16; TEMP 36.7; O2SAT 98
== END 2023-11-23 13:13 | disposition home or self-care (01) ==
LOC: SDC 09:13 → AC 09:14
PROVIDERS: PCP Nurse Practitioner Primary Care; Referring Provider Nurse Practitioner Primary Care; Visit Provider Surgery
PROC: (CPT 36561; principal; 2023-11-23 11:30)
DX: C50.411 Malignant neoplasm of upper-outer quadrant of right female breast (principal); Z87.891 Personal history of nicotine dependence; Z80.3 Family history of malignant neoplasm of breast; M79.621 Pain in right upper arm; E78.00 Pure hypercholesterolemia, unspecified; Z17.1 Estrogen receptor negative status [ER-]; Z90.721 Acquired absence of ovaries, unilateral; Z90.49 Acquired absence of other specified parts of digestive tract; Z90.11 Acquired absence of right breast and nipple; K21.9 Gastro-esophageal reflux disease without esophagitis; Z90.722 Acquired absence of ovaries, bilateral
CPT/HCPCS: 36561; 00532; 71045; 77001; J7120; C1788

== ENCOUNTER → 2024-05-07 | Outpatient (CLI) | payer MEDICARE, SELFPAY ==
[2023-10-14 10:05] VITALS: BMI 34.9
--- NOTE | 2024-05-07 07:54 | RAD_ITS ---
CLINICAL HISTORY: Female, 73 years old. Evaluation of the left-sided portacatheter. PROCEDURE: Troy catheter injection. FLUOROSCOPY TIME (if supplied): (27 seconds) minutes/seconds. 2 images worse obtained. STERILE BARRIER TECHNIQUE: The following sterile barrier precautions were used during the procedure: hand hygiene; use of 2% chlorhexidine aseptic; use of a cap, mask, sterile gown, sterile gloves, sterile full body drape, and a large sterile sheet. TECHNIQUE: 20 cc of Isovue-300 was injected through the portacatheter. The catheter is patent. There is free flow of contrast. # of Images: 3 RAD/Con Inj Cesar Eval CVP Inc Fluro IMPRESSION: Unremarkable portacatheter evaluation. Electronically Signed: Ricco Dominguez MD at 9:48 EDT ,
--- NOTE | 2024-05-07 07:54 | US_ITS ---
STUDY: SUPERFICIAL ULTRASOUND - LEFT NECK/SHOULDER MASS. REASON FOR EXAM: Female, 73 years old. Mass -- Left neck/ shoulder area TECHNIQUE: A superficial ultrasound was performed with real-time and static snyder-scale imaging. COMPARISON: None. FINDINGS: Sonographic imaging was obtained. No sonographic abnormality is seen. US/Head/Neck Soft Tissue IMPRESSION: No sonographic abnormality is seen. Electronically Signed: Ricco Dominguez MD at 14:42 EDT ,
[2024-05-07] MEDS: 0.9% Saline Lock 10 ML Syringe IV (08:56)
== END | disposition home or self-care (01) ==
LOC: US 07:53
PROVIDERS: PCP Nurse Practitioner Primary Care; Referring Provider Physician Assistant; Visit Provider Physician Assistant
DX: C50.411 Malignant neoplasm of upper-outer quadrant of right female breast (principal); Z17.1 Estrogen receptor negative status [ER-]; R22.30 Localized swelling, mass and lump, unspecified upper limb
CPT/HCPCS: 36598; 76536; A4216

== ENCOUNTER 2024-08-10 07:30 | Outpatient (RCR) | payer MEDICARE, SELFPAY ==
[2023-10-14 10:05] VITALS: BMI 34.9
--- NOTE | 2024-08-01 15:52 | HP.PTEVAL_ITS ---
Patient's Visit Information Visit Information Visit Information: CHELLE CAN is a 73 year old F referred to Physical Therapy by Dr. Naman South MD with a diagnosis of LBP with R LE radiculopathy. Date of Evaluation: 08/01/24 Physical Therapist: Emeka Johnston, PT, ATC Visit Plan Frequency: 1x/Week Duration: 2 Weeks Plan: Issue and instruct pt on HEP of REIL and core stab ex's Subjective Subjective: Pt reports she has had LBP for a couple months. Pt notes her pain had an insidious onset in nature. Pt reports she dealt with the pain until she started to experience L LE radiculopathy that extended down her entire leg. Pt notes she has had x-rays and an MRI since that time which revealed a bulging disc with a tear in it. Pt reports she has been told to go to PT and see if this helps. Pt also notes she was given a muscle relaxer which does help her sleep a little better, but she can only sleep 2 hours at a time. 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 Pt reports she did have LBP approximately 5 years ago, but that is the only other episode. Pt notes prolonged sitting and standing increases her pain. Pt notes walking tends to help her pain. Pt has 2 steps to enter her house, which she negotiates one step at a time. 6/10 pain at rest, 8/10 pain at worst. Pain LBP: Pain Intensity (Out of 10): 6 Pain Intensity Range: 8 Objective Objective: Neuro: B LE sensation is WNL to light touch. B bicipital reflex= 2/3 MMT: B LE's are grossly 4/5 throughout ROM: Pt is moderately limited with L/S ext. All other ranges are WNL Repeated movements: Prone prop on elbows 1 min x 2 decreased pain. Balance/Special Test Scores Oswestry Low Back Score: 17 Goals Goal 1:: I with HEP Goal Time Frame: 2 Weeks Rehabilitation Potential Physical Therapy Diagnosis: Pt has LBP, limited ROM, and R LE radiculopathy secondary to L/S disc derrangement Rehabilitation Potential: Good Anticipated Interventions Patient/Client Instruction: Educate patient on: Condition and Plan of Care For the Purpose of:: To improve self management Therapeutic Exercise to Include: Strength training, Endurance training, Body mechanics, Postural training and Dynamic Lumbar Stabilization For the Purpose of:: To decrease pain, To increase ROM and To improve muscle performance and motor function Text: Thank you for the opportunity to evaluate your patient. For Medicare and Medicare HMO plans, please review the plan of care and approve it. It will need to be FAXED BACK to us at [phone] for Medicare purposes. For Medicare only, by signing this I certify the plan of care. Please let me know if there are questions or concerns regarding this plan of care. Physician Signature: Date:
--- NOTE | 2024-08-10 08:20 | HP.PTDCSUM ---
Discharge Summary D/C summary: It has been my pleasure to treat CHELLE CAN referred by Dr. Naman South MD, with the diagnosis of LBP with R LE radiculopathy for a total of 2 visit(s). Discharge Date: Please see the following information for a summary of their discharge status. Subjective Subjective: Pt reports she is ready for her HEP Pain LBP: Pain Intensity (Out of 10): 2 Objective Objective/Function: Pt is now I with HEP Goals Goal 1:: I with HEP Plan Plan: Discharge to HEP D/C Information d/c sentence: If there are questions or concerns regarding this patient's physical therapy, please feel free to call me at [phone]. Thank you for the referral of this patient. Sincerely, Emeka Johnston, PT, ATC Balance/Gait/Functional tests Balance/Special Test Scores Oswestry Low Back Score: 17
== END 2024-08-10 13:29 | disposition home or self-care (01) ==
LOC: PT 07:30
PROVIDERS: PCP Nurse Practitioner Primary Care; Referring Provider Orthopaedic Surgery Orthopaedic Surgery of the Spine; Visit Provider Orthopaedic Surgery Orthopaedic Surgery of the Spine
DX: M43.16 Spondylolisthesis, lumbar region (principal)
CPT/HCPCS: 97110; 97161

== ENCOUNTER → 2025-05-28 | Outpatient (CLI) | payer MEDICARE, SELFPAY ==
[2023-10-14 10:05] VITALS: BMI 34.9
--- NOTE | 2025-05-28 12:06 | CT_ITS ---
PROCEDURE: CT CHEST, ABD, PEL W/CONTRAST 05/28/2025 REASON FOR EXAM: REOCCURRING BREAST CA-IV ONLY TECHNIQUE: Chest, abdomen and pelvis CT with intravenous contrast. Coronal and Sagittal reconstruction series were provided. One or more dose reduction techniques were used (e.g., Automated exposure control, adjustment of the mA and/or kV according to patient size, use of iterative reconstruction technique. PATIENT PREPARATION: Per protocol ORAL CONTRAST TYPE: None. CONTRAST: Isovue-300 VOLUME: 100mL RADIATION DOSE SUMMARY: CTDlvol: 45.7 mGy DLP: 1764.89 mGycm COMPARISON: CT abdomen and pelvis with contrast, 03/16/2021. CT chest with contrast, 12/28/2022 FINDINGS: CT CHEST: Lower neck:Status post left hemithyroidectomy. There is no supraclavicular lymphadenopathy. Mediastinum:No abnormal masses or lymphadenopathy. Heart and thoracic aorta:The heart size is normal. There is no pericardial effusion. There is no calcific vascular disease of the coronary arteries or thoracic aorta evident. Esophagus:Normal. Chest wall:Status post bilateral mastectomy and right axillary lymph node dissection. There is a chemotherapy port in the left upper chest wall with the tip in the superior vena cava via the left internal jugular vein. There is a "reverse rugger [place]" appearance of the spine. This is nonspecific and could be due to renal osteodystrophy or osteoporosis. Lungs, airways and pleura: There is subpleural scarring in the left frontal lobe underlying the left breast, consistent with post radiation scarring. The lungs are otherwise clear. There are no pleural effusions. CT ABDOMEN/PELVIS: Liver: Normal size. No mass. Gallbladder: Surgically absent. Spleen: Normal size. Pancreas: Normal size without evidence of mass surrounding inflammation or ductal dilation. Adrenals: Normal. Kidneys: There are stable cortical cysts in both kidneys. Bladder: Normal unenhanced appearance. Reproductive Organs: The uterus is unremarkable. The ovaries are not identified. There is no free fluid in the pelvis. There is no pelvic or inguinal lymphadenopathy. Bowel: There are scattered colonic diverticuli without evidence of acute inflammation. Appendix: Normal. Lymph nodes: Unremarkable. Vasculature: Mild diffuse atherosclerotic calcifications are noted. Peritoneum / Retroperitoneum: There are no abnormal intra or retroperitoneal masses or fluid collections. Bones: There is a "reverse rugger [place]" appearance of the spine. This is nonspecific and could be due to renal osteodystrophy or osteoporosis. CT/CT Chest, Abd, Pel w/Contrast IMPRESSION: 1. There are no findings in the chest abdomen or pelvis to suggest metastatic disease. 2. Other findings as noted, not significantly changed. Reading Location: [place] [id number]
[2025-05-28] MEDS: 0.9% Saline Lock 10 ML Syringe IV ×2 (12:49→13:13)
== END | disposition home or self-care (01) ==
LOC: CT 12:06
PROVIDERS: PCP Nurse Practitioner Primary Care; Referring Provider Internal Medicine Medical Oncology; Visit Provider Internal Medicine Medical Oncology
DX: C50.512 Malignant neoplasm of lower-outer quadrant of left female breast (principal)
CPT/HCPCS: 71260; 74177; Q9967; A4216

== ENCOUNTER → 2025-07-09 | Outpatient (CLI) | payer MEDICARE, SELFPAY ==
[2023-10-14 10:05] VITALS: BMI 34.9
--- NOTE | 2025-07-09 14:34 | RAD_ITS ---
EXAM: XR Abdomen, 2 Views CLINICAL INDICATION: ABD PAIN, UPRIGHT XRAY OF ABDOMEN TECHNIQUE: Frontal view of the abdomen/pelvis with upright view of the abdomen. COMPARISON: No relevant prior studies available. FINDINGS: INTRAPERITONEAL SPACE: No free air. GASTROINTESTINAL TRACT: Fecal retention in the colon consistent with constipation. No dilation. BONES/JOINTS: Moderate degenerative change of the hip joints, bilaterally. No acute fracture. RAD/Abdomen Single View IMPRESSION: 1. Fecal retention in the colon consistent with constipation. 2. Moderate degenerative change of the hip joints, bilaterally. Reading Location: [id number]
== END | disposition home or self-care (01) ==
LOC: MTRAD 14:33
PROVIDERS: PCP Nurse Practitioner Primary Care; Referring Provider Internal Medicine Gastroenterology; Visit Provider Internal Medicine Gastroenterology
DX: R10.9 Unspecified abdominal pain (principal)
CPT/HCPCS: 74018